=== PATIENT | female | born 1940 | race Caucasian/White ===

== ENCOUNTER 2017-06-10 19:57 | Inpatient (IN) | payer MEDICARE, MEDICAID ==
[~2017-06-10] VITALS: Ht 172.7 cm; Wt 81.6 kg
--- NOTE | 2017-06-10 20:14 | Emergency Room Report ---
History of Present Illness General Chief Complaint: Altered Level of Consciousness Source: Patient Present Illness HPI 76YOF BIBEMS from [facility] for AMS post-op from L1/S1 fusion. Patient came out of OR 5pm. Went to room at 7pm. Received 1U PRBC and ?1L NS post-op Was not given post-op narcotics Narcan given with no improvement Epi was also given although recovery manager unsure why Patient's only contribution is to groan and writhe on stretcher Surgeon is bedside. States patient without known PMHx aside from HLD. Was allegedly cleared by Cardiology and Respiratory before surgery. Normal WBC count this morning Got 4.2L NS, 540 cellsaver and 1U PRBC today Allergies: Coded Allergies: No Known Allergies (Unverified , 06/10/17) Patient History Past Medical History: none, unable to obtain Past Surgical History: other - back surgery today Pertinent Family History: unable to obtain Social History: Denies: alcohol use, drug use, smoking Last Menstrual Period: NONE Now: No Immunizations: UTD Reviewed Nursing Documentation: PMH: Agreed, PSxH: Agreed Nursing Documentation-PMH Past Medical History: No Stated History Review of Systems All Other Systems: limited - AMS Physical Exam Vital Signs Date Time Temp Pulse Resp B/P Pulse Ox O2 Delivery O2 Flow Rate FiO2 06/10/17 19:45 84 18 89/35 100 Simple Mask 15.0 Sp02 EP Interpretation: reviewed, abnormal General Appearance: normal inspection, moderate distress, other - Elderly lady , writhing on stretcher, intermittent moaning Head: normocephalic, atraumatic Eyes: bilateral eye EOMI, bilateral eye PERRL ENT: normal ENT inspection, hearing grossly normal, normal pharynx, no angioedema, normal voice Neck: normal inspection, full range of motion, supple, no meningismus, no bony tend Respiratory: normal inspection, accessory muscle use, rhonchi Cardiovascular #1: regular rate, rhythm, no edema, other - Cold extremities Gastrointestinal: normal inspection, normal bowel sounds, non tender, soft, no guarding, no hernia Genitourinary: no CVA tenderness Musculoskeletal: normal inspection, normal range of motion, Rizwan's Sign negative, other - Lower back covered with large bandages. Deep palpation does not illicit any painful response from patient. Neurologic: normal inspection, alert, responsive, speech normal, other - 4 limb movement normal Psychiatric: normal inspection, judgement/insight normal, mood/affect normal Procedures Critical Care Time Critical Care Time CC time 60 minutes 76YOF with acute respiratory failure s/p long spinal surgery VS significant for tachycardia, hypotension Labs leukocytosis, severe rhabdo, ZEKE Intubated for airway protection, AMS CC time includes discussion with surgeon, post-op RN, review of op and post-op notes, review of labs, imaging, discussion with ICU hospitalist Intubation Intubation : Consent: Emergent Intubation Method: orotracheal Tube Size (cm): 7.5 Medications: Etomidate, Rocuronium Breath Sounds after Intubation: equal Intubation Complications: no complications Post Intubation Xray: Yes Attempts: One Patient Tolerated: Well Complications: None Medical Decision Making Medicare Attestation I Koby Ward MD hereby attest that the medical record entry for date of service, 11/02/16 accurately reflects signatures/notations that I made in my capacity as MD when I treated/diagnosed the above listed Medicare beneficiary. I attest that this information is true, accurate and complete to the best of my knowledge. I understand that any falsification, omission, or concealment of material fact may subject me to administrative, civil, or criminal liability. This patient warrants hospital admission for extreme of age and has a condition that cannot be treated as outpatient. Diagnostic Impression: Primary Impression: Altered level of consciousness Additional Impressions: Sepsis Qualified Codes: A41.9 - Sepsis, unspecified organism Rhabdomyolysis Qualified Codes: T79.6XXA - Traumatic ischemia of muscle, initial encounter ZEKE (acute kidney injury) Respiratory failure Qualified Codes: J96.02 - Acute respiratory failure with hypercapnia Acidosis ER Course Altered mental status - Patient lethargic, sonorous breathing upon arrival - VS with hypotension. - Became increasingly more lethargic and unresponsive to sternal rub/ stimulation and required emergent intubation for airway protection and unknown etiology of AMS - Prior to intubation, bradycardic down to 20s then became normal HR without ED intervention Labs: Leuks 18K. CXR: No obvious PNA. UA no obvious UTI. Severe rhabdomyolysis with ZEKE. Elevated CKMB component pH 6.9. CO2 50. Po2 normal. 2L NS given in ED Empiric Abx given after blood Cx sent Endorsed to Dr Sheikh to repeat troponin and CKMB in [address] Hampton for ICU admission at 930pm EKG Diagnostic Results Rate: tachycardiac Rhythm Strip Diag. Results EP Interpretation: yes Rate: 126 Rhythm: NSR, no PVC's, no ectopy Chest X-Ray Diagnostic Results Chest X-Ray Diagnostic Results : Chest X-Ray Ordered: Yes # of Views/Limited/Complete: 1 View Indication: Other - AMS EP Interpretation: Yes Interpretation: no pneumothorax, other - Bilateral ARDS vs PNA Impression: Other - see above Interpreting ER Provider: Electronically signed by Dr Ward Other X-Ray Diagnostic Results Other X-Ray Diagnostic Results : # of Views/Limited Vs Complete: 1 View Indication: Pain EP Interpretation: Yes Interpretation: other - Interval placement of ET tube Impression: No acute disease Interpreting ER Provider: Electronically signed by Dr Ward Last Vital Signs Date Time Temp Pulse Resp B/P Pulse Ox O2 Delivery O2 Flow Rate FiO2 06/10/17 19:45 84 18 89/35 100 Simple Mask 15.0 Status: improved Disposition: ADMITTED INPATIENT Condition: Critical KOBY WARD M.D. Jun 10, 2017 20:14
[2017-06-10] MEDS ORDERED: Atropine Inj 1mg/10ml Syr ONE (20:15)
[2017-06-10 20:20] LABS: APPEARANCE,URINE CLEAR; KETONES,URINE NEGATIVE (NEGATIVE); LEUKOCYTE ESTERASE ,URINE 2+ (NEGATIVE); MEAN CORPUSCULAR HEMOGLOBIN 30.2 PG (27.0-31.0); MEAN CORPUSCULAR VOLUME 94 FL (80-99); MEAN PLATELET VOLUME 7.1 FL (6.5-10.1); NITRITE,URINE NEGATIVE (NEGATIVE); PH,URINE 5 (4.5-8.0); PLATELET COUNT 94 K/UL (150-450); PROTEIN,URINE 1+ (NEGATIVE); RED BLOOD COUNT 3.32 M/UL (4.20-5.40); RED CELL DISTRIBUTION WIDTH 14.7 % (11.6-14.8); UROBILINOGEN,URINE NORMAL MG/DL (0.0-1.0); WHITE BLOOD COUNT 18.2 K/UL (4.8-10.8)
[2017-06-10 20:27] LABS: INR 1.3 (0.9-1.1); PROTHROMBIN TIME 13.4 SEC (9.30-11.50)
[2017-06-10 20:32] LABS: BACTERIA,URINE FEW /HPF; SQUAMOUS EPITHELIAL CELL,UR FEW /LPF (NONE/OCC)
[2017-06-10 20:38] LABS: ALANINE AMINOTRANSFERASE 32 U/L (3-33); ALBUMIN/GLOBULIN RATIO 1.5 (1.0-2.7); ANION GAP 14 (5-15); ASPARTATE AMINO TRANSFERASE 95 U/L (5-40); CARBON DIOXIDE 16 mEQ/L (20-30); CHLORIDE 114 mEQ/L (98-107); CREATININE 1.1 mg/dL (0.5-0.9); HEMOLYSIS 12; SODIUM 144 mEQ/L (135-145); TOTAL PROTEIN 3.6 g/dL (6.6-8.7); TROPONIN I < 0.30 ng/mL (<=0.30)
[2017-06-10] MEDS ORDERED: NS 110 ML ONE (20:54)
[2017-06-10] MEDS ORDERED: Zosyn 3.375gm inj ONE (20:54)
[2017-06-10] MEDS ORDERED: Tubing IV Cassette IV ONE (20:54)
[2017-06-10] MEDS ORDERED: LR 1000ml 1,000 ML IV SCH (21:00)
[2017-06-10] MEDS ORDERED: Piperacillin/Tazobactam 3.375 GM in NS 110 ML IVPB ONE (21:00)
[2017-06-10] MEDS ORDERED: Etomidate 40mg/20ml Inj IV ONE (21:00)
[2017-06-10] MEDS ORDERED: Vancomycin 1 GM in D5W 275 ML IVPB ONE (21:00)
[2017-06-10] MEDS ORDERED: EPINEPHrine 1mg/10ml Syringe IV ONE (21:04)
[2017-06-10 21:07] VITALS: BP 102/78
[2017-06-10 21:12] VITALS: BP 102/76
[2017-06-10 21:23] LABS: CKMB 299.9 ng/mL (< 3.8)
[2017-06-10 21:31] LABS: ANISOCYTOSIS 1+; BAND NEUTROPHILS % (MANUAL) 8 % (0-8); HYPOCHROMASIA 1+; LYMPHOCYTES % (MANUAL) 10 % (20-45); NEUTROPHILS % (MANUAL) 78 % (45-75); PLATELET MORPHOLOGY NORMAL; TOTAL CELLS COUNTED 100
[2017-06-10 21:32] LABS: BASOPHILS % (MANUAL) 0 % (0-2); EOSINOPHILS % (MANUAL) 0 % (0-3); PLATELET ESTIMATE DECREASED
[2017-06-10] MEDS ORDERED: Tubing IV Extension IV ONE (22:04)
[2017-06-10] MEDS ORDERED: D5W 275 ML ONE (22:04)
[2017-06-10] MEDS ORDERED: Vancomycin 1gm inj IVPB ONE (22:04)
[2017-06-10] MEDS ORDERED: Sodium Bicarbonate 50ml Carp IV ONE (22:15)
[2017-06-10 22:32] VITALS: BP 143/93
[2017-06-10 22:54] LABS: ABG BASE EXCESS -19.6; ABG PCO2 50.9 mmHg (35.0-45.0)
[2017-06-10 22:55] LABS: ABG ALLEN TEST POSITIVE
[2017-06-10] MEDS ORDERED: ANCEF1 GM/50 ML IVPB (23:24)
[2017-06-10] MEDS ORDERED: ZOFRAN 4 MG4 MG/2 ML IV (23:24)
[2017-06-10] MEDS ORDERED: PROPOFOL10 MG/1 ML IV (23:24)
[2017-06-10] MEDS ORDERED: DILAUDID 11 MG/1 M1 IVP ×2 (23:24→23:31)
[2017-06-10] MEDS ORDERED: FENTANYL 0100 MCG/2 IV (23:24)
[2017-06-10] MEDS ORDERED: DEXAMETHASONE IV (23:24)
[2017-06-10] MEDS ORDERED: [UNRECOGNIZED DRUG - OTHER] IV ×2 (23:24)
[2017-06-10] MEDS ORDERED: [UNRECOGNIZED DRUG - OTHER] IV (23:24)
[2017-06-10] MEDS ORDERED: REGLAN10 MG IVP (23:24)
[2017-06-10] MEDS ORDERED: PHENERGAN25 MG/1 ML IJ (23:31)
[2017-06-10] MEDS ORDERED: NARCAN4 MG IVP (23:31)
[2017-06-10] MEDS ORDERED: ATIVAN1 MG ORAL (23:31)
[2017-06-10] MEDS ORDERED: PROTONIX20 MG ORAL (23:31)
[2017-06-10] MEDS ORDERED: BENADRYL25 MG ORAL (23:31)
[2017-06-10] MEDS ORDERED: CYCLOBENZAPRINE10 MG ORAL (23:31)
[2017-06-10] MEDS ORDERED: NEURONTIN400 MG ORAL (23:31)
[2017-06-10] MEDS ORDERED: OXYCONTIN15 MG ORAL (23:31)
[2017-06-10] MEDS ORDERED: MILK OF MA400 MG/51 ORAL (23:31)
[2017-06-10] MEDS ORDERED: CEPACOL SORETH1 EACH ORAL (23:31)
[2017-06-10] MEDS ORDERED: COLACE100 MG ORAL (23:31)
[2017-06-10] MEDS ORDERED: NORCO 10-325 T1 EACH ORAL (23:31)
[2017-06-10] MEDS ORDERED: SOMA350 MG PO (23:31)
[2017-06-10] MEDS ORDERED: CATAPRES0.1 MG ORAL (23:31)
[2017-06-10] MEDS ORDERED: PEPCID20 MG ORAL (23:31)
[2017-06-10 23:45] VITALS: BP 81/52
[2017-06-11] VITALS (66 sets, daily range): BP systolic 58–132; BP diastolic 8–92
[2017-06-11 01:46] LABS: REFLEX LACTIC ACID YES OR NO YES
[2017-06-11 01:55] LABS: TROPONIN I < 0.30 ng/mL (<=0.30)
[2017-06-11] MEDS ORDERED: LORazepam Inj 2mg/ml 1ml IV ONE (02:15)
[2017-06-11 02:19] LABS: CKMB 271.4 ng/mL (< 3.8)
--- NOTE | 2017-06-11 06:43 | Emergency Room Report ---
History of Present Illness General Chief Complaint: Altered Level of Consciousness Source: Patient Present Illness Allergies: Coded Allergies: No Known Allergies (Unverified , 06/10/17) Patient History Last Menstrual Period: NONE Now: No Nursing Documentation-[facility] Past Medical History: No Stated History Physical Exam Vital Signs Date Time Temp Pulse Resp B/P Pulse Ox O2 Delivery O2 Flow Rate FiO2 06/10/17 19:45 84 18 89/35 100 Simple Mask 15.0 06/10/17 21:12 97.6 100 Procedures Central Line Central Line : Consent: Emergent Central Line Lumen: triple Maximal Sterile Barrier Tech: yes cap, yes mask, yes sterile gown, yes sterile gloves, yes large sterile sheet, yes hand hygiene, yes chlorhexidine prep Central Line Postion: femoral (R) Anesthesia: local Complications: none Central Line Post Position: sutured, good blood return Attempts: One Patient Tolerated: Well Complications: None Medical Decision Making Diagnostic Impression: Primary Impression: Altered level of consciousness Additional Impressions: Acidosis Respiratory failure Rhabdomyolysis Sepsis ZEKE (acute kidney injury) Last Vital Signs Date Time Temp Pulse Resp B/P Pulse Ox O2 Delivery O2 Flow Rate FiO2 06/11/17 05:54 99.7 140 16 100/56 98 Mechanical Ventilator 50 06/10/17 19:45 15.0 Disposition: ADMITTED INPATIENT Condition: Critical Referrals: NOT CHOSEN JESSENIA/,REFERRING (PCP) RAMAN EDGAR M.D. Jun 11, 2017 06:43
[2017-06-11 07:28] LABS: ABG BASE EXCESS -11.1; ABG PCO2 25.4 mmHg (35.0-45.0)
[2017-06-11 07:29] LABS: ABG ALLEN TEST POSITIVE
[2017-06-11] MEDS ORDERED: Levophed 4mg/4mL Inj IV ONE (08:15)
--- NOTE | 2017-06-11 08:26 | Critical Care Progress Note ---
Assessment/Plan Assessment/Plan respiratory failure shock possible sepsis leukocytosis protein calorie malnutrition elevated CK possible rhabdo oliguria post spine surgery acute encephalopathy PLAN ICU care pressors cards eval ID eval IV antibiotics respiratory care Ventilatory support follow up ABG supportive care suction as needed no wean oxygen therapy prognosis guarded hyperventilate medications/laboratory data/nursing notes/ICU care reviewed in detail note reviewed and edited care discussed with RN and RT ICU time spent 40 minutes Critical Care - Subjective Interval Events: transferred post op very ill and critical unresponsive at present ROS Limited/Unobtainable: Yes Condition: critical EKG Rhythm: Sinus Tachycardia I&O: Intake and Output 06/10/17 06/11/17 19:00 07:00 Intake Total 4735 ml Output Total 450 ml Balance 4285 ml Intake IV Total 4735 ml Output Urine Total 450 ml Critical Care - Objective CXR: diffuse infiltrates ET-Tube: 7.5 ET Position: 22 Last 24 Hour Vital Signs Date Time Temp Pulse Resp B/P Pulse Ox O2 Delivery O2 Flow Rate FiO2 06/11/17 07:56 142 06/11/17 07:31 137 38 50 06/11/17 07:13 50 06/11/17 07:00 98.7 138 38 82/49 98 Mechanical Ventilator 50 06/11/17 06:45 99.7 140 16 100/56 98 Mechanical Ventilator 15.0 50 06/11/17 05:54 99.7 140 16 100/56 98 Mechanical Ventilator 50 06/11/17 05:27 141 35 50 06/11/17 04:20 133 16 96/92 100 Mechanical Ventilator 50 06/11/17 03:19 98.6 121 16 86/67 100 Mechanical Ventilator 50 06/11/17 02:58 123 24 50 06/11/17 01:49 94.9 105 16 115/78 100 Mechanical Ventilator 50 06/11/17 00:50 117 16 132/64 98 Mechanical Ventilator 50 06/11/17 00:50 120 22 50 06/10/17 23:45 95.8 109 16 81/52 100 Mechanical Ventilator 50 06/10/17 23:30 50 06/10/17 22:51 114 20 50 06/10/17 22:32 119 14 143/93 100 Mechanical Ventilator 100 06/10/17 21:26 138 14 Mechanical Ventilator 100 06/10/17 21:23 138 14 100 06/10/17 21:15 100 06/10/17 21:12 97.6 144 14 102/76 100 Mechanical Ventilator 100 06/10/17 21:07 120 29 102/78 83 Room Air 06/10/17 19:45 84 18 89/35 100 Simple Mask 15.0 Labs: Laboratory Tests Test 06/10/17 20:03 06/10/17 21:57 06/11/17 00:50 06/11/17 07:21 White Blood Count 18.2 K/UL (4.8-10.8) H Red Blood Count 3.32 M/UL (4.20-5.40) L Hemoglobin 10.0 G/DL (12.0-16.0) L Hematocrit 31.3 % (37.0-47.0) L Mean Corpuscular Volume 94 FL (80-99) Mean Corpuscular Hemoglobin 30.2 PG (27.0-31.0) Mean Corpuscular Hemoglobin Concent 32.0 G/DL (32.0-36.0) Red Cell Distribution Width 14.7 % (11.6-14.8) Platelet Count 94 K/UL (150-450) L Mean Platelet Volume 7.1 FL (6.5-10.1) Neutrophils (%) (Auto) % (45.0-75.0) Lymphocytes (%) (Auto) % (20.0-45.0) Monocytes (%) (Auto) % (1.0-10.0) Eosinophils (%) (Auto) % (0.0-3.0) Basophils (%) (Auto) % (0.0-2.0) Differential Total Cells Counted 100 Neutrophils % (Manual) 78 % (45-75) H Lymphocytes % (Manual) 10 % (20-45) L Monocytes % (Manual) 4 % (1-10) Eosinophils % (Manual) 0 % (0-3) Basophils % (Manual) 0 % (0-2) Band Neutrophils 8 % (0-8) Platelet Estimate Decreased L Platelet Morphology Normal Hypochromasia 1+ Anisocytosis 1+ Prothrombin Time 13.4 SEC (9.30-11.50) H Prothromb Time International Ratio 1.3 (0.9-1.1) H Activated Partial Thromboplast Time 25 SEC (23-33) Urine Color Yellow Urine Appearance Clear Urine pH 5 (4.5-8.0) Urine Specific [place] 1.015 (1.005-1.035) Urine Protein 1+ (NEGATIVE) H Urine Glucose (UA) Negative (NEGATIVE) Urine Ketones Negative (NEGATIVE) Urine Occult Blood 3+ (NEGATIVE) H Urine Nitrite Negative (NEGATIVE) Urine Bilirubin Negative (NEGATIVE) Urine Urobilinogen Normal MG/DL (0.0-1.0) Urine Leukocyte Esterase 2+ (NEGATIVE) H Urine RBC 5-10 /HPF (0 - 2) H Urine WBC 2-4 /HPF (0 - 2) Urine Squamous Epithelial Cells Few /LPF (NONE/OCC) Urine Bacteria Few /HPF (NONE) Sodium Level 144 mEQ/L (135-145) Potassium Level 4.0 mEQ/L (3.4-4.9) Chloride Level 114 mEQ/L (98-107) H Carbon Dioxide Level 16 mEQ/L (20-30) L Anion Gap 14 (5-15) Blood Urea Nitrogen 11 mg/dL (7-23) Creatinine 1.1 mg/dL (0.5-0.9) H Estimat Glomerular Filtration Rate mL/min (>60) Glucose Level 197 mg/dL (74-106) H Calcium Level 7.0 mg/dL (8.6-10.2) L Total Bilirubin 0.6 mg/dL (0.0-1.2) Aspartate Amino Transf (AST/SGOT) 95 U/L (5-40) H Alanine Aminotransferase (ALT/SGPT) 32 U/L (3-33) Alkaline Phosphatase 26 U/L (35-104) L Total Creatine Kinase 4006 U/L (26-140) H 3963 U/L (26-140) H Creatine Kinase MB 299.9 ng/mL (< 3.8) H 271.4 ng/mL (< 3.8) H Creatine Kinase MB Relative Index 7.4 6.8 Troponin I < 0.30 ng/mL (<=0.30) < 0.30 ng/mL (<=0.30) Total Protein 3.6 g/dL (6.6-8.7) L Albumin 2.2 g/dL (3.5-5.2) L Globulin 1.4 g/dL Albumin/Globulin Ratio 1.5 (1.0-2.7) Arterial Blood pH 6.962 (7.350-7.450) 7.330 (7.350-7.450) Arterial Blood Partial Pressure CO2 50.9 mmHg (35.0-45.0) H 25.4 mmHg (35.0-45.0) L Arterial Blood Partial Pressure O2 369.1 mmHg (75.0-100.0) H 148.0 mmHg (75.0-100.0) H Arterial Blood HCO3 11.2 mmol/L (22.0-26.0) L 13.3 mmol/L (22.0-26.0) L Arterial Blood Oxygen Saturation 99.2 % (92.0-98.0) H 98.2 % (92.0-98.0) H Arterial Blood Base Excess -19.6 -11.1 Quirino Test Positive Positive Lactic Acid Level 5.80 mmol/L (0.66-2.22) H Pro-B-Type Natriuretic Peptide 642 pg/mL (0-450) H Test 06/11/17 08:00 Sodium Level Pending Potassium Level Pending Chloride Level Pending Carbon Dioxide Level Pending Blood Urea Nitrogen Pending Creatinine Pending Estimat Glomerular Filtration Rate Pending Glucose Level Pending Lactic Acid Level Pending Calcium Level Pending Total Bilirubin Pending Aspartate Amino Transf (AST/SGOT) Pending Alanine Aminotransferase (ALT/SGPT) Pending Alkaline Phosphatase Pending Creatine Kinase MB Pending Total Protein Pending Albumin Pending Globulin Pending Objective: WDWN NAD ill, pale coarse breath sounds bilaterally without rhonchi or wheeze S1S2 tachy RR without MRG reduced bowel sounds, nontender no HSM no CC; trace edema nonfocal poor LOC Accucheck: 167 MARISABEL CISNEROS Jun 11, 2017 08:26
[2017-06-11 08:35] LABS: ALANINE AMINOTRANSFERASE 45 U/L (3-33); ALBUMIN/GLOBULIN RATIO 1.5 (1.0-2.7); ANION GAP 12 (5-15); ASPARTATE AMINO TRANSFERASE 123 U/L (5-40); CALCIUM 6.2 mg/dL (8.6-10.2); CARBON DIOXIDE 17 mEQ/L (20-30); CHLORIDE 117 mEQ/L (98-107); CREATININE 1.4 mg/dL (0.5-0.9); HEMOLYSIS 8; POTASSIUM 4.5 mEQ/L (3.4-4.9); SODIUM 146 mEQ/L (135-145); TOTAL PROTEIN 3.8 g/dL (6.6-8.7)
[2017-06-11 08:36] LABS: REFLEX LACTIC ACID YES OR NO YES
[2017-06-11 08:42] LABS: CKMB 241.6 ng/mL (< 3.8)
--- NOTE | 2017-06-11 09:15 | Diagnostic Imaging Report ---
Indication: Altered mental status Technique: spiral acquisitions obtained through the brain. Angled axial and coronal 5 x 5 mm slices were reconstructed. No IV contrast utilized. Radiation dose was minimized using automated exposure control Total dose length product 1383 mGycm. CTDIvol(s) 70 mGy Comparison: none FINDINGS: No acute hemorrhage or edema. No mass effect or midline shift. There is age-related enlargement of the ventricles and extra axial CSF spaces. There is periventricular deep white matter ischemic change. Normal morrissey-white differentiation. Visualized orbits are unremarkable. Visualized sinuses are unremarkable. Intact calvarium. IMPRESSION: Chronic and age-related changes. Negative for acute intracranial bleed or mass effect This agrees with the preliminary interpretation provided overnight by Dr. Herr The CT scanner at [facility] is accredited by the [employer] and the scans are performed using protocols designed to limit radiation exposure to as low as reasonably achievable to attain images of sufficient resolution adequate for diagnostic evaluation
[2017-06-11] MEDS: Pantoprazole Inj IVP SCH ×2 (09:59→20:38)
[2017-06-11] MEDS: Piperacillin/Tazobactam 3.375 GM in D5W 110 ML IVPB SCH ×3 (10:08→22:33)
--- NOTE | 2017-06-11 11:09 | Diagnostic Imaging Report ---
Indication: PAIN Technique: One view of the chest Comparison: none Findings: There is equivocal minimal probable disease and possibly pleural fluid left lung base. Lungs and pleural spaces are otherwise clear. There arm midline surgical skin francisco javier and lumbar spine fusion hardware. A surgical drain is noted projected over the left upper quadrant. Bilateral calcified breast implants are noted. Impression: Equivocal minimal left basilar pleural and parenchymal disease. No acute process otherwise. Evidence of recent surgery
[2017-06-11 11:21] LABS: BASOPHILS % (AUTO) 0.7 % (0.0-2.0); LYMPHOCYTES % (AUTO) 7.6 % (20.0-45.0); MEAN CORPUSCULAR HEMOGLOBIN 29.2 PG (27.0-31.0); MEAN CORPUSCULAR HGB CONC 31.9 G/DL (32.0-36.0); MEAN CORPUSCULAR VOLUME 92 FL (80-99); MEAN PLATELET VOLUME 6.4 FL (6.5-10.1); MONOCYTES % (AUTO) 7.8 % (1.0-10.0); NEUTROPHILS % (AUTO) 83.8 % (45.0-75.0); PLATELET COUNT 105 K/UL (150-450); RED BLOOD COUNT 3.24 M/UL (4.20-5.40)
--- NOTE | 2017-06-11 11:23 | Diagnostic Imaging Report ---
Indication: TUBE PLCMT STATUS post endotracheal intubation Technique: One view of the chest Comparison: 45 minutes earlier Findings: Interim endotracheal intubation, endotracheal tube tip in good position approximately 3 cm above the eder. There are left infrahilar opacities which are probably extraneous to the patient. Other findings are unchanged Impression: Satisfactory endotracheal intubation
[2017-06-11] MEDS ORDERED: DOPamine 400mg/250ml 250 ML IV SCH ×2 (13:00→13:30)
--- NOTE | 2017-06-11 13:30 | Diagnostic Imaging Report ---
Indication: Shortness of breath Technique: One view of the chest Comparison: 06/10/2017 Findings: Stable satisfactory position of endotracheal tube. Interim placement of nasogastric tube. Previously demonstrated. Skin francisco javier are not evident currently, either removed or excluded from the current imaging volume. Bilateral calcified breast prostheses are again demonstrated. The heart remains enlarged. Left hemidiaphragm is slightly less apparent currently. There is improved right perihilar atelectatic change Impression: Slightly less apparent left hemidiaphragm, may reflect developing pleural fluid or parenchymal disease at the left lung base. Satisfactory nasogastric intubation Decreased right perihilar atelectasis, over one day Other stable findings as described
[2017-06-11] MEDS ORDERED: Vancomycin 1gm in D5W 275ml IVPB SCH (15:00)
[2017-06-11 17:04] LABS: ALANINE AMINOTRANSFERASE 58 U/L (3-33); ALBUMIN/GLOBULIN RATIO 1.2 (1.0-2.7); ANION GAP 14 (5-15); ASPARTATE AMINO TRANSFERASE 122 U/L (5-40); CARBON DIOXIDE 13 mEQ/L (20-30); CHLORIDE 115 mEQ/L (98-107); HEMOLYSIS 2; POTASSIUM 4.1 mEQ/L (3.4-4.9); SODIUM 142 mEQ/L (135-145); TOTAL PROTEIN 3.6 g/dL (6.6-8.7)
[2017-06-11 17:24] LABS: TROPONIN I 0.51 ng/mL (<=0.30)
--- NOTE | 2017-06-11 18:39 | Neurology Progress Note ---
Interim History Interim History ROS Limited/Unobtainable: Yes Objective Physical Exam Last Vital Signs Date Time Temp Pulse Resp B/P Pulse Ox O2 Delivery O2 Flow Rate FiO2 06/11/17 18:00 134 39 93/48 99 Mechanical Ventilator 40 06/11/17 16:00 97.9 06/11/17 06:45 15.0 Laboratory Tests Test 06/10/17 20:03 06/10/17 21:57 06/11/17 00:50 06/11/17 07:21 White Blood Count 18.2 K/UL (4.8-10.8) H Red Blood Count 3.32 M/UL (4.20-5.40) L Hemoglobin 10.0 G/DL (12.0-16.0) L Hematocrit 31.3 % (37.0-47.0) L Mean Corpuscular Volume 94 FL (80-99) Mean Corpuscular Hemoglobin 30.2 PG (27.0-31.0) Mean Corpuscular Hemoglobin Concent 32.0 G/DL (32.0-36.0) Red Cell Distribution Width 14.7 % (11.6-14.8) Platelet Count 94 K/UL (150-450) L Mean Platelet Volume 7.1 FL (6.5-10.1) Neutrophils (%) (Auto) % (45.0-75.0) Lymphocytes (%) (Auto) % (20.0-45.0) Monocytes (%) (Auto) % (1.0-10.0) Eosinophils (%) (Auto) % (0.0-3.0) Basophils (%) (Auto) % (0.0-2.0) Differential Total Cells Counted 100 Neutrophils % (Manual) 78 % (45-75) H Lymphocytes % (Manual) 10 % (20-45) L Monocytes % (Manual) 4 % (1-10) Eosinophils % (Manual) 0 % (0-3) Basophils % (Manual) 0 % (0-2) Band Neutrophils 8 % (0-8) Platelet Estimate Decreased L Platelet Morphology Normal Hypochromasia 1+ Anisocytosis 1+ Prothrombin Time 13.4 SEC (9.30-11.50) H Prothromb Time International Ratio 1.3 (0.9-1.1) H Activated Partial Thromboplast Time 25 SEC (23-33) Urine Color Yellow Urine Appearance Clear Urine pH 5 (4.5-8.0) Urine Specific [place] 1.015 (1.005-1.035) Urine Protein 1+ (NEGATIVE) H Urine Glucose (UA) Negative (NEGATIVE) Urine Ketones Negative (NEGATIVE) Urine Occult Blood 3+ (NEGATIVE) H Urine Nitrite Negative (NEGATIVE) Urine Bilirubin Negative (NEGATIVE) Urine Urobilinogen Normal MG/DL (0.0-1.0) Urine Leukocyte Esterase 2+ (NEGATIVE) H Urine RBC 5-10 /HPF (0 - 2) H Urine WBC 2-4 /HPF (0 - 2) Urine Squamous Epithelial Cells Few /LPF (NONE/OCC) Urine Bacteria Few /HPF (NONE) Sodium Level 144 mEQ/L (135-145) Potassium Level 4.0 mEQ/L (3.4-4.9) Chloride Level 114 mEQ/L (98-107) H Carbon Dioxide Level 16 mEQ/L (20-30) L Anion Gap 14 (5-15) Blood Urea Nitrogen 11 mg/dL (7-23) Creatinine 1.1 mg/dL (0.5-0.9) H Estimat Glomerular Filtration Rate mL/min (>60) Glucose Level 197 mg/dL (74-106) H Calcium Level 7.0 mg/dL (8.6-10.2) L Total Bilirubin 0.6 mg/dL (0.0-1.2) Aspartate Amino Transf (AST/SGOT) 95 U/L (5-40) H Alanine Aminotransferase (ALT/SGPT) 32 U/L (3-33) Alkaline Phosphatase 26 U/L (35-104) L Total Creatine Kinase 4006 U/L (26-140) H 3963 U/L (26-140) H Creatine Kinase MB 299.9 ng/mL (< 3.8) H 271.4 ng/mL (< 3.8) H Creatine Kinase MB Relative Index 7.4 6.8 Troponin I < 0.30 ng/mL (<=0.30) < 0.30 ng/mL (<=0.30) Total Protein 3.6 g/dL (6.6-8.7) L Albumin 2.2 g/dL (3.5-5.2) L Globulin 1.4 g/dL Albumin/Globulin Ratio 1.5 (1.0-2.7) Arterial Blood pH 6.962 (7.350-7.450) 7.330 (7.350-7.450) Arterial Blood Partial Pressure CO2 50.9 mmHg (35.0-45.0) H 25.4 mmHg (35.0-45.0) L Arterial Blood Partial Pressure O2 369.1 mmHg (75.0-100.0) H 148.0 mmHg (75.0-100.0) H Arterial Blood HCO3 11.2 mmol/L (22.0-26.0) L 13.3 mmol/L (22.0-26.0) L Arterial Blood Oxygen Saturation 99.2 % (92.0-98.0) H 98.2 % (92.0-98.0) H Arterial Blood Base Excess -19.6 -11.1 Quirino Test Positive Positive Lactic Acid Level 5.80 mmol/L (0.66-2.22) H Pro-B-Type Natriuretic Peptide 642 pg/mL (0-450) H Test 06/11/17 08:00 06/11/17 16:00 White Blood Count 16.0 K/UL (4.8-10.8) H Red Blood Count 3.24 M/UL (4.20-5.40) L Hemoglobin 9.4 G/DL (12.0-16.0) L Hematocrit 29.6 % (37.0-47.0) L Mean Corpuscular Volume 92 FL (80-99) Mean Corpuscular Hemoglobin 29.2 PG (27.0-31.0) Mean Corpuscular Hemoglobin Concent 31.9 G/DL (32.0-36.0) L Red Cell Distribution Width 15.0 % (11.6-14.8) H Platelet Count 105 K/UL (150-450) L Mean Platelet Volume 6.4 FL (6.5-10.1) L Neutrophils (%) (Auto) 83.8 % (45.0-75.0) H Lymphocytes (%) (Auto) 7.6 % (20.0-45.0) L Monocytes (%) (Auto) 7.8 % (1.0-10.0) Eosinophils (%) (Auto) 0.0 % (0.0-3.0) Basophils (%) (Auto) 0.7 % (0.0-2.0) Sodium Level 146 mEQ/L (135-145) H 142 mEQ/L (135-145) Potassium Level 4.5 mEQ/L (3.4-4.9) 4.1 mEQ/L (3.4-4.9) Chloride Level 117 mEQ/L (98-107) H 115 mEQ/L (98-107) H Carbon Dioxide Level 17 mEQ/L (20-30) L 13 mEQ/L (20-30) L Anion Gap 12 (5-15) 14 (5-15) Blood Urea Nitrogen 14 mg/dL (7-23) 19 mg/dL (7-23) Creatinine 1.4 mg/dL (0.5-0.9) H 2.0 mg/dL (0.5-0.9) H Estimat Glomerular Filtration Rate mL/min (>60) mL/min (>60) Glucose Level 167 mg/dL (74-106) H 247 mg/dL (74-106) H Lactic Acid Level 5.30 mmol/L (0.66-2.22) H Calcium Level 6.2 mg/dL (8.6-10.2) L 6.0 mg/dL (8.6-10.2) L Total Bilirubin 0.3 mg/dL (0.0-1.2) 0.2 mg/dL (0.0-1.2) Aspartate Amino Transf (AST/SGOT) 123 U/L (5-40) H 122 U/L (5-40) H Alanine Aminotransferase (ALT/SGPT) 45 U/L (3-33) H 58 U/L (3-33) H Alkaline Phosphatase 28 U/L (35-104) L 28 U/L (35-104) L Creatine Kinase MB 241.6 ng/mL (< 3.8) H Total Protein 3.8 g/dL (6.6-8.7) L 3.6 g/dL (6.6-8.7) L Albumin 2.3 g/dL (3.5-5.2) L 2.0 g/dL (3.5-5.2) L Globulin 1.5 g/dL 1.6 g/dL Albumin/Globulin Ratio 1.5 (1.0-2.7) 1.2 (1.0-2.7) Total Creatine Kinase 2945 U/L (26-140) H Troponin I 0.51 ng/mL (<=0.30) *H Impression/Recommendations Problems: (1) post op persistant coma,multifactorial. (2) Anuresis (3) septic shock (4) respiratory failure, on ventilator (5) ZEKE (acute kidney injury) (6) Rhabdomyolysis Status: unchanged Recommendations #[id number] LULU BAEZ Jun 11, 2017 18:39
[2017-06-11 19:31] LABS: REFLEX LACTIC ACID YES OR NO YES
--- NOTE | 2017-06-11 20:30 | Consultation ---
DATE OF CONSULTATION: 06/11/2017 INFECTIOUS DISEASE CONSULT CONSULTING PHYSICIAN: Ezekiel Veliz M.D. PRIMARY ATTENDING PHYSICIAN: Yifan Hampton M.D. REASON FOR CONSULTATION: Sepsis and septic shock. HISTORY OF PRESENT ILLNESS: The patient is a 76-year-old black female, admitted yesterday with altered mental status. She had an operation at [facility] that was L5-S1 fusion. According to the paper, the patient had a major surgery. After surgery, the patient did not wake up, became hypotensive and developed respiratory failure with hypercapnia and intubated. Currently, she is on maximal dose of Levophed in the ICU, had acute renal failure, and rhabdomyolysis. PAST MEDICAL HISTORY: Has history of back pain and breast augmentation. No other history obtainable by the patient. MEDICATIONS: Vancomycin, norepinephrine, Protonix, Zosyn, sodium chloride, and Tylenol. ALLERGIES: No known drug allergies. PHYSICAL EXAMINATION: GENERAL: In ICU. Nonresponsive. VITAL SIGNS: Temperature 98.7 degrees, the patient at the beginning of the admission was hypothermic with the temperature of 94.9 degrees, pulse is 135, respirations 34, and blood pressure 99/80. HEAD AND NECK: Orally intubated. Exira conjunctivae. HEART: Tachycardic. LUNGS: Tachypneic and clear on mechanical ventilator. ABDOMEN: Soft and nontender. EXTREMITIES: No edema. LABORATORY DATA: WBC 16,000, hemoglobin 9.4, hematocrit 29.6, and platelets is 105,000. Sodium 144, potassium 4, and chloride 114. Carbon dioxide 16. BUN 11 and creatinine 1.1. Lactic acid is 5.3. CK level is 4006. Albumin is 2.2. IMPRESSION: 1. Sepsis with septic shock versus systemic inflammatory response syndrome 2. The patient has respiratory failure. 3. Acute renal failure and rhabdomyolysis. 4. Status post L5-S1 fusion. 5. Had a lab that showed pyuria outside of the hospital, but our cultures are still pending. RECOMMENDATIONS: 1. We will continue empirically with vancomycin and Zosyn. 2. We will follow up the cultures. At the end of my exam, I thank Dr. Hampton for involving me in the care of this patient. Ezekiel Veliz M.D. DR: RICHA JOB#: [id number] CC: JENNIFER
[2017-06-11] MEDS: Acetaminophen 650 MG SUPP RECTAL PRN ×2 (21:24→21:27)
[2017-06-11] MEDS ORDERED: Acetaminophen 650 MG SUPP RECTAL PRN (21:45)
--- NOTE | 2017-06-11 22:30 | Consultation ---
DATE OF CONSULTATION: NEPHROLOGY CONSULTATION CONSULTING PHYSICIAN: Graham Patiño M.D. ATTENDING PHYSICIAN: Yifan Hampton M.D. REASON FOR CONSULTATION: Anuria. HISTORY OF PRESENT ILLNESS: This is a 76-year-old female, transferred from [facility] due to respiratory failure and decompensation. The full picture is not clear since I do not have full account. According Dr. Hampton, the patient received mismatched transfusion and developed respiratory failure and acute renal failure. The patient is on the ventilator and unable to give any further information. PAST MEDICAL HISTORY: 1. Recent back surgery done at [facility] by . 2. Recent development of a shock. MEDICATIONS: Current medications pressors, intravenous fluids, intravenous vancomycin, Protonix, intravenous Zosyn, and Tylenol p.r.n. ALLERGIES: No known drug allergies. FAMILY HISTORY: Unable to obtain. SOCIAL HISTORY: Unable to obtain. REVIEW OF SYSTEMS: Unable to obtain. PHYSICAL EXAMINATION: GENERAL: This is an elderly female, who is on a ventilator. VITAL SIGNS: Blood pressure is 105/77, pulse 140, sinus tachycardia, and respirations 34. HEENT: The patient is on a ventilator and intubated transorally. The head is normocephalic and atraumatic. Pupils are equal, round, and reactive to light. NECK: Supple. Trachea midline. There was no lymphadenopathy or thyromegaly. LUNGS: Clear to auscultation and percussion. HEART: Tachycardia. S1 and S2. No rubs, murmurs, or gallops. ABDOMEN: Soft. Bowel sounds are active. EXTREMITIES: No clubbing, cyanosis, or edema. NEUROLOGIC: She is obtunded. There were no gross focal findings. LABORATORY AND ANCILLARY DATA: CBC, white count 16,000 and hematocrit 29.6. Serum chemistry, sodium 146, potassium 4.5, BUN 14, and creatinine 1.4. Lactic acid 5.3. Calcium 6.2. Total bilirubin 0.3. ALT 45. CPK 3963. Urinalysis, significant for 3+ occult blood. ASSESSMENT: 1. Acute renal failure due to hemoglobinuria, most likely due to a mismatched blood. 2. Acute rhabdomyolysis. PLAN: 1. Continue current therapy. 2. We will watch for development of a metabolic acidosis or need for hemodialysis. Thank you Dr. Hampton for letting me participate in the care of this patient. Graham Patiño M.D. DR: BINTA JOB#: [id number] CC:
[2017-06-12] VITALS (32 sets, daily range): BP systolic 106–146; BP diastolic 37–68
--- NOTE | 2017-06-12 00:30 | History and Physical Report ---
DATE OF ADMISSION: 06/10/2017 CHIEF COMPLAINT: Respiratory failure, sepsis, and shock. HISTORY OF PRESENT ILLNESS: The patient is a 76-year-old female, who was initially referred to an outside hospital for spine surgery. The patient had a L1-S1 fusion. Postoperatively, she became confused and altered. She required a blood transfusion. She received normal saline. She apparently developed worsening respiratory distress and confusion, was transferred to the emergency room where she required intubation. She was hypotensive, later received IV fluid boluses, but later required pressors for blood pressure support. Laboratory test in the emergency room showed a white count of 18,000. Chest x-ray was clear. UA was negative. Blood gases showed severe metabolic acidosis. Lactic acid level of 5 with a CK level of 4000. The patient is now admitted to the intensive care unit for further evaluation and care. PAST MEDICAL HISTORY: Includes history of hyperlipidemia and chronic back pain. PAST SURGICAL HISTORY: Includes breast surgery. CURRENT MEDICATIONS: Reconciled and reviewed. ALLERGIES: None. FAMILY HISTORY: Significant for her father who had coronary artery disease and hypertension. REVIEW OF SYSTEMS: The patient is unobtainable. PHYSICAL EXAMINATION: VITAL SIGNS: Temperature 98 degrees, blood pressure 106/66, pulse of 137, and respirations 35. GENERAL: The patient is a frail female, currently orally intubated. NECK: Supple. HEART: Regular rate and rhythm. LUNGS: Clear anteriorly. ABDOMEN: Soft, nontender, and nondistended. EXTREMITIES: Without clubbing, cyanosis, or edema. LABORATORY AND DIAGNOSTIC DATA: Showed a white count of 18,000, hemoglobin 10, hematocrit 31, and platelets of 94,000. INR was 1.3. Sodium 140, potassium 4.5, chloride 117, bicarbonate 17, BUN 14, and creatinine 1.4. CK level was 4000. Urine was clear. Chest x-ray also was clear. ASSESSMENT: This is an unfortunate female with a history of chronic lower back pain status post lumbar fusion, complicated by respiratory failure and septic shock, unclear etiology at this point. 1. Respiratory failure. 2. Shock. 3. Possible sepsis. 4. Possible aspiration pneumonia. 5. Rhabdomyolysis. 6. Severe metabolic acidosis. PLAN: 1. Aggressive fluid resuscitation. 2. Vent support. 3. Respiratory treatments. 4. Broad-spectrum antibiotic therapy. 5. Monitor CK level. 6. Check a troponin. 7. The patient's status is currently critical and guarded. Shin Gallegos M.D. DR: SAMM JOB#: [id number] CC:
--- NOTE | 2017-06-12 03:30 | Progress Note ---
DATE: 06/11/2017 CARDIOLOGY PROGRESS NOTE SUBJECTIVE: The patient remains in the intensive care unit. Condition remains critical. Prognosis remains guarded. She is on ventilator support. She has been on pressors. She has developed atrial fibrillation with rapid ventricular response. OBJECTIVE: VITAL SIGNS: Blood pressure 94/60, pulse 125 and respiratory 18 and afebrile. HEENT: Temporal wasting. Oropharynx clear. NECK: No jugular venous distention. LUNGS: With bilateral rales. CARDIAC: Irregularly irregular rhythm. Rapid rate. Normal S1 and S2. No murmur. ABDOMEN: Soft. EXTREMITIES: Trace edema. LABORATORY AND DIAGNOSTIC DATA: Chest x-ray reveals perihilar atelectasis and parenchymal disease at the left base. Venous duplex scan reveals no DVT. ABG, pH 7.33, pCO2 25, and pO2 148. White count 16 and hemoglobin 9.4. Lactic acid 5.8. CK is 3900. Troponin negative. Natriuretic peptide 642. IMPRESSION: 1. Status post spine surgery. 2. Postoperative rest with probable anoxic encephalopathy. 3. Rhabdomyolysis. 4. Lactic acidosis. 5. Sepsis with shock. 6. Paroxysmal atrial fibrillation with rapid ventricular response. 7. Acute myocardial ischemia. 8. Anemia. 9. Condition remains critical with guarded prognosis. PLAN: 1. Volume resuscitation. 2. Taper off pressors. 3. Broad-spectrum antibiotics. 4. DVT prophylaxis. Praful Stewart M.D. DR: MECHE JOB#: [id number] CC: JENNIFER
[2017-06-12 05:32] LABS: MEAN CORPUSCULAR HGB CONC 32.8 G/DL (32.0-36.0); MEAN CORPUSCULAR VOLUME 92 FL (80-99); MEAN PLATELET VOLUME 6.2 FL (6.5-10.1); PLATELET COUNT 103 K/UL (150-450); RED BLOOD COUNT 2.65 M/UL (4.20-5.40); RED CELL DISTRIBUTION WIDTH 15.3 % (11.6-14.8); WHITE BLOOD COUNT 20.1 K/UL (4.8-10.8)
[2017-06-12] MEDS: Piperacillin/Tazobactam 3.375 GM in D5W 110 ML IVPB SCH ×3 (05:36→21:32)
[2017-06-12 05:42] LABS: ALANINE AMINOTRANSFERASE 53 U/L (3-33); ANION GAP 11 (5-15); ASPARTATE AMINO TRANSFERASE 119 U/L (5-40); CALCIUM 6.1 mg/dL (8.6-10.2); CARBON DIOXIDE 15 mEQ/L (20-30); CHLORIDE 115 mEQ/L (98-107); CREATININE 2.2 mg/dL (0.5-0.9); HEMOLYSIS 13; SODIUM 141 mEQ/L (135-145); TOTAL PROTEIN 3.7 g/dL (6.6-8.7)
[2017-06-12 05:54] LABS: REFLEX LACTIC ACID YES OR NO YES
[2017-06-12 06:13] LABS: ABG ALLEN TEST POSITIVE; ABG BASE EXCESS -9.7; ABG PCO2 29.5 mmHg (35.0-45.0)
[2017-06-12 06:18] LABS: PHOSPHORUS 2.4 MG/DL (2.5-4.9)
[2017-06-12 06:50] LABS: TROPONIN I 0.31 ng/mL (<=0.30)
[2017-06-12 06:55] LABS: BAND NEUTROPHILS % (MANUAL) 19 % (0-8); LYMPHOCYTES % (MANUAL) 10 % (20-45); NEUTROPHILS % (MANUAL) 70 % (45-75); TOTAL CELLS COUNTED 100
[2017-06-12 06:56] LABS: ANISOCYTOSIS 1+; BASOPHILS % (MANUAL) 0 % (0-2); EOSINOPHILS % (MANUAL) 0 % (0-3); PLATELET ESTIMATE DECREASED; POIKILOCYTOSIS 1+
[2017-06-12] MEDS: Pantoprazole Inj IVP SCH ×2 (08:12→21:26)
[2017-06-12 08:32] LABS: PLATELET MORPHOLOGY NORMAL
--- NOTE | 2017-06-12 09:20 | Diagnostic Imaging Report ---
Indication: Elevated renal function test Technique: Renal ultrasound Findings: The right kidney measures 9.3 cm in length. The left kidney measures 10.7 cm in length. There is no hydronephrosis. Small right renal cysts are seen measuring up to 12 mm. No sonographically evident renal calculi are identified. Trace ascites is noted. The visualized portions of the inferior vena cava are unremarkable. A Mendoza catheter is present. Impression: Technically limited examination due to overlying bowel gas and labored breathing. Portions of the bilateral kidneys not well seen and further evaluation recommended as indicated. No hydronephrosis. Mendoza catheter although intraluminal positioning within the bladder is difficult to assess. Correlate clinically and reposition if indicated. Right renal cysts. Mild ascites. Clinical correlation recommended.
[2017-06-12] MEDS: Acetaminophen 650 MG SUPP RECTAL PRN (09:38)
--- NOTE | 2017-06-12 09:52 | Nephrology Progress Note ---
Assessment/Plan Plan 1) ZEKE--stable Cr 2) metabolic acidosis 3) sepsis 4) anemia 5) thromocytopenia 6) hypocalcemia 7) rhabdomyolysis 8) s/p back Sx 9) NSTEMI Plan sodium bicarb drip replete Ca Monitor i/o, electrolytes continue Abx Avoid Nephrotoxic medications in renal dosage Doesn't need urgent HD Discussed with RN Subjective Subjective got intubated, off pressor Objective Objective Last 24 Hour Vital Signs Date Time Temp Pulse Resp B/P Pulse Ox O2 Delivery O2 Flow Rate FiO2 06/12/17 09:00 104 28 131/50 99 Mechanical Ventilator 60 06/12/17 08:47 102 36 40 06/12/17 08:00 102 33 127/62 99 Mechanical Ventilator 60 06/12/17 08:00 100 06/12/17 07:05 95 33 40 06/12/17 07:00 109 26 106/63 99 Mechanical Ventilator 60 06/12/17 05:30 109 31 145/54 99 Mechanical Ventilator 60 06/12/17 05:03 104 28 40 06/12/17 05:00 107 32 132/67 98 Mechanical Ventilator 60 06/12/17 05:00 132/50 06/12/17 04:30 110 31 132/50 98 Mechanical Ventilator 60 06/12/17 04:15 50 06/12/17 04:00 60 06/12/17 04:00 116/70 06/12/17 04:00 107 06/12/17 04:00 98.9 107 31 132/50 98 Mechanical Ventilator 60 06/12/17 03:30 115 33 121/58 98 Mechanical Ventilator 60 06/12/17 03:15 112 33 115/61 99 Mechanical Ventilator 60 06/12/17 03:03 115 37 50 06/12/17 03:00 114 33 126/58 98 Mechanical Ventilator 60 06/12/17 03:00 126/58 06/12/17 02:45 115 35 139/55 99 Mechanical Ventilator 60 06/12/17 02:30 116 35 130/64 98 Mechanical Ventilator 60 06/12/17 02:15 117 34 129/52 98 Mechanical Ventilator 60 06/12/17 02:00 115 32 133/54 98 Mechanical Ventilator 60 06/12/17 02:00 133/54 06/12/17 01:30 114 29 123/52 98 Mechanical Ventilator 60 06/12/17 01:00 115 34 125/55 98 Mechanical Ventilator 60 06/12/17 01:00 125/55 06/12/17 00:54 115 34 60 06/12/17 00:30 114 33 119/58 91 Mechanical Ventilator 60 06/12/17 00:00 60 06/12/17 00:00 118 06/12/17 00:00 116/57 06/12/17 00:00 100.0 118 35 116/57 100 Mechanical Ventilator 40 06/11/17 23:30 119 36 115/48 99 Mechanical Ventilator 40 06/11/17 23:05 125 35 80 06/11/17 23:00 123/62 06/11/17 23:00 123/62 06/11/17 23:00 122 35 128/46 100 Mechanical Ventilator 40 06/11/17 22:30 127 35 111/60 100 Mechanical Ventilator 40 06/11/17 22:00 131/65 06/11/17 22:00 131/65 06/11/17 22:00 124 32 131/65 100 Mechanical Ventilator 40 06/11/17 21:54 100.0 06/11/17 21:30 126 35 122/42 100 Mechanical Ventilator 40 06/11/17 21:15 123 35 122/53 100 Mechanical Ventilator 40 06/11/17 21:14 125 06/11/17 21:10 94/61 06/11/17 21:00 112/41 06/11/17 21:00 112/41 06/11/17 21:00 119 35 112/41 100 Mechanical Ventilator 40 06/11/17 20:51 134 39 100 06/11/17 20:45 124 36 87/45 100 Mechanical Ventilator 40 06/11/17 20:30 128 35 86/51 100 Mechanical Ventilator 40 06/11/17 20:15 120 33 104/56 100 Mechanical Ventilator 40 06/11/17 20:00 100.7 127 32 104/61 100 Mechanical Ventilator 40 06/11/17 20:00 40 06/11/17 20:00 104/61 06/11/17 20:00 104/61 06/11/17 19:45 122 32 106/63 100 Mechanical Ventilator 40 06/11/17 19:30 132 32 95/49 100 Mechanical Ventilator 40 06/11/17 19:15 129 29 90/60 99 Mechanical Ventilator 40 06/11/17 19:00 101/54 06/11/17 19:00 101/54 06/11/17 19:00 131 34 95/61 99 Mechanical Ventilator 40 06/11/17 18:45 131 39 95/61 99 Mechanical Ventilator 40 06/11/17 18:36 132 39 40 06/11/17 18:30 132 38 97/45 99 Mechanical Ventilator 40 06/11/17 18:15 133 38 98/61 99 Mechanical Ventilator 40 06/11/17 18:00 134 39 93/48 99 Mechanical Ventilator 40 06/11/17 18:00 93/48 06/11/17 18:00 93/48 06/11/17 17:45 133 38 112/76 98 Mechanical Ventilator 40 06/11/17 17:30 133 38 104/74 98 Mechanical Ventilator 40 06/11/17 17:15 132 38 90/70 99 Mechanical Ventilator 40 06/11/17 17:03 132 39 50 06/11/17 17:00 114/61 06/11/17 17:00 135 38 89/75 99 Mechanical Ventilator 40 06/11/17 16:45 133 37 79/51 98 Mechanical Ventilator 40 06/11/17 16:30 133 37 96/62 98 Mechanical Ventilator 40 06/11/17 16:15 133 38 106/57 98 Mechanical Ventilator 40 06/11/17 16:00 40 06/11/17 16:00 97.9 132 35 106/66 99 Mechanical Ventilator 40 06/11/17 16:00 122/63 06/11/17 16:00 122/63 06/11/17 16:00 133 06/11/17 15:45 135 38 117/80 99 Mechanical Ventilator 40 06/11/17 15:30 135 35 130/43 99 Mechanical Ventilator 40 06/11/17 15:30 130/43 06/11/17 15:15 135 35 122/72 99 Mechanical Ventilator 40 06/11/17 15:00 137 35 106/66 99 Mechanical Ventilator 40 06/11/17 15:00 112/87 06/11/17 15:00 112/87 06/11/17 14:54 140 38 50 06/11/17 14:45 140 37 106/66 93 Mechanical Ventilator 40 06/11/17 14:30 139 34 101/61 93 Mechanical Ventilator 40 06/11/17 14:30 101/61 06/11/17 14:15 139 34 109/58 94 Mechanical Ventilator 40 06/11/17 14:00 138 34 105/77 94 Mechanical Ventilator 40 06/11/17 14:00 108/61 06/11/17 13:45 137 38 105/77 94 Mechanical Ventilator 40 06/11/17 13:30 137 38 102/57 94 Mechanical Ventilator 40 06/11/17 13:30 102/57 06/11/17 13:20 136 37 50 06/11/17 13:15 136 38 89/54 94 Mechanical Ventilator 40 06/11/17 13:10 106/75 06/11/17 13:00 136 37 106/75 94 Mechanical Ventilator 40 06/11/17 13:00 113/71 06/11/17 12:45 133 37 106/46 99 Mechanical Ventilator 40 06/11/17 12:30 134 36 109/46 99 Mechanical Ventilator 40 06/11/17 12:15 98.1 135 37 106/76 94 Mechanical Ventilator 40 06/11/17 12:11 107/75 06/11/17 12:00 40 06/11/17 12:00 107/75 06/11/17 12:00 98.1 134 33 107/75 94 Mechanical Ventilator 40 06/11/17 12:00 136 06/11/17 11:45 136 37 107/75 94 Mechanical Ventilator 40 06/11/17 11:30 136 37 102/75 94 Mechanical Ventilator 40 06/11/17 11:15 137 34 112/82 94 Mechanical Ventilator 40 06/11/17 11:00 135 34 99/80 94 Mechanical Ventilator 40 06/11/17 11:00 105/70 06/11/17 10:56 135 36 50 06/11/17 10:45 136 38 90/56 94 Mechanical Ventilator 40 06/11/17 10:34 85/41 06/11/17 10:30 136 37 99/80 94 Mechanical Ventilator 40 06/11/17 10:15 136 33 95/56 94 Mechanical Ventilator 40 06/11/17 10:00 90/56 06/11/17 10:00 136 36 90/56 94 Mechanical Ventilator 40 Intake and Output 06/11/17 06/12/17 19:00 07:00 Intake Total 2723.370 ml 2270.352 ml Output Total 350 ml 335 ml Balance 2373.370 ml 1935.352 ml Intake Oral 0 ml IV Total 2723.370 ml 2270.352 ml Output Urine Total 40 ml 215 ml Drainage Total 310 ml 120 ml Laboratory Tests 06/11/17 16:00: Sodium Level 142, Potassium Level 4.1, Chloride Level 115H, Carbon Dioxide Level 13L, Anion Gap 14, Blood Urea Nitrogen 19, Creatinine 2.0H, Estimat Glomerular Filtration Rate , Glucose Level 247H, Calcium Level 6.0L, Total Bilirubin 0.2, Aspartate Amino Transf (AST/SGOT) 122H, Alanine Aminotransferase (ALT/SGPT) 58H, Alkaline Phosphatase 28L, Total Creatine Kinase 2945H, Troponin I 0.51*H, Total Protein 3.6L, Albumin 2.0L, Globulin 1.6, Albumin/Globulin Ratio 1.2 06/11/17 18:45: Lactic Acid Level 3.70H 06/12/17 04:00: Sodium Level 141, Potassium Level 4.0, Chloride Level 115H, Carbon Dioxide Level 15L, Anion Gap 11, Blood Urea Nitrogen 24H, Creatinine 2.2H, Estimat Glomerular Filtration Rate , Glucose Level 148#H, Calcium Level 6.1L, Total Bilirubin 0.3, Aspartate Amino Transf (AST/SGOT) 119H, Alanine Aminotransferase (ALT/SGPT) 53H, Alkaline Phosphatase 43, Total Creatine Kinase 1916H, Troponin I 0.31*H, Total Protein 3.7L, Albumin 1.9L, Globulin 1.8, Albumin/Globulin Ratio 1.0, Lactic Acid Level 2.00, White Blood Count 20.1H, Red Blood Count 2.65L, Hemoglobin 8.0L, Hematocrit 24.3L, Mean Corpuscular Volume 92, Mean Corpuscular Hemoglobin 30.0, Mean Corpuscular Hemoglobin Concent 32.8, Red Cell Distribution Width 15.3H, Platelet Count 103L, Mean Platelet Volume 6.2L, Neutrophils (%) (Auto) , Lymphocytes (%) (Auto) , Monocytes (%) (Auto) , Eosinophils (%) (Auto) , Basophils (%) (Auto) , Differential Total Cells Counted 100, Neutrophils % (Manual) 70, Lymphocytes % (Manual) 10L, Monocytes % (Manual) 1, Eosinophils % (Manual) 0, Basophils % (Manual) 0, Band Neutrophils 19H, Platelet Estimate DecreasedL, Platelet Morphology Normal, Poikilocytosis 1+ , Anisocytosis 1+, Phosphorus Level 2.4L, Lactate Dehydrogenase 513H 06/12/17 06:00: Arterial Blood pH 7.330L, Arterial Blood Partial Pressure CO2 29.5L, Arterial Blood Partial Pressure O2 71.6L, Arterial Blood HCO3 15.2L, Arterial Blood Oxygen Saturation 92.7, Arterial Blood Base Excess -9.7, Quirino Test Positive Height (Feet): 5 Height (Inches): 8.00 Weight (Pounds): 168 Objective intubated on Vent CTA b/l,no rales, no rhonchi S1,S2,RRR,no M/R/g soft, BS+, drainage from back with blood no edema, Mendoza's cath + LEAJULI Jun 12, 2017 09:51
--- NOTE | 2017-06-12 09:54 | Critical Care Progress Note ---
Assessment/Plan Assessment/Plan respiratory failure shock possible sepsis leukocytosis protein calorie malnutrition elevated CK possible rhabdo post spine surgery acute encephalopathy ARF with oliguria hypotension improved ?[facility] PLAN ICU care pressors now off cards eval ID eval IV antibiotics pending cultures respiratory care Ventilatory support follow up ABG noted; adequate acid base exchange supportive care suction as needed no wean for now renal US Noted oxygen therapy prognosis guarded hyperventilate as needed monitor platelets heme eval for possible transfusion reaction medications/laboratory data/nursing notes/ICU care reviewed in detail note reviewed and edited care discussed with RN and RT ICU time spent 45 minutes Critical Care - Subjective Interval Events: care d/w multiple times events noted now off pressors ROS Limited/Unobtainable: Yes EKG Rhythm: Sinus Tachycardia I&O: Intake and Output 06/11/17 06/12/17 19:00 07:00 Intake Total 2723.370 ml 2270.352 ml Output Total 350 ml 335 ml Balance 2373.370 ml 1935.352 ml Intake Oral 0 ml IV Total 2723.370 ml 2270.352 ml Output Urine Total 40 ml 215 ml Drainage Total 310 ml 120 ml Critical Care - Objective ET-Tube: 7.5 ET Position: 22 Last 24 Hour Vital Signs Date Time Temp Pulse Resp B/P Pulse Ox O2 Delivery O2 Flow Rate FiO2 06/12/17 09:00 104 28 131/50 99 Mechanical Ventilator 60 06/12/17 08:47 102 36 40 06/12/17 08:00 102 33 127/62 99 Mechanical Ventilator 60 06/12/17 08:00 100 06/12/17 07:05 95 33 40 06/12/17 07:00 109 26 106/63 99 Mechanical Ventilator 60 06/12/17 05:30 109 31 145/54 99 Mechanical Ventilator 60 06/12/17 05:03 104 28 40 06/12/17 05:00 107 32 132/67 98 Mechanical Ventilator 60 06/12/17 05:00 132/50 06/12/17 04:30 110 31 132/50 98 Mechanical Ventilator 60 06/12/17 04:15 50 06/12/17 04:00 60 06/12/17 04:00 116/70 06/12/17 04:00 107 06/12/17 04:00 98.9 107 31 132/50 98 Mechanical Ventilator 60 06/12/17 03:30 115 33 121/58 98 Mechanical Ventilator 60 06/12/17 03:15 112 33 115/61 99 Mechanical Ventilator 60 06/12/17 03:03 115 37 50 06/12/17 03:00 114 33 126/58 98 Mechanical Ventilator 60 06/12/17 03:00 126/58 06/12/17 02:45 115 35 139/55 99 Mechanical Ventilator 60 06/12/17 02:30 116 35 130/64 98 Mechanical Ventilator 60 06/12/17 02:15 117 34 129/52 98 Mechanical Ventilator 60 06/12/17 02:00 115 32 133/54 98 Mechanical Ventilator 60 06/12/17 02:00 133/54 06/12/17 01:30 114 29 123/52 98 Mechanical Ventilator 60 06/12/17 01:00 115 34 125/55 98 Mechanical Ventilator 60 06/12/17 01:00 125/55 06/12/17 00:54 115 34 60 06/12/17 00:30 114 33 119/58 91 Mechanical Ventilator 60 06/12/17 00:00 60 06/12/17 00:00 118 06/12/17 00:00 116/57 06/12/17 00:00 100.0 118 35 116/57 100 Mechanical Ventilator 40 06/11/17 23:30 119 36 115/48 99 Mechanical Ventilator 40 06/11/17 23:05 125 35 80 06/11/17 23:00 123/62 06/11/17 23:00 123/62 06/11/17 23:00 122 35 128/46 100 Mechanical Ventilator 40 06/11/17 22:30 127 35 111/60 100 Mechanical Ventilator 40 06/11/17 22:00 131/65 06/11/17 22:00 131/65 06/11/17 22:00 124 32 131/65 100 Mechanical Ventilator 40 06/11/17 21:54 100.0 06/11/17 21:30 126 35 122/42 100 Mechanical Ventilator 40 06/11/17 21:15 123 35 122/53 100 Mechanical Ventilator 40 06/11/17 21:14 125 06/11/17 21:10 94/61 06/11/17 21:00 112/41 06/11/17 21:00 112/41 06/11/17 21:00 119 35 112/41 100 Mechanical Ventilator 40 06/11/17 20:51 134 39 100 06/11/17 20:45 124 36 87/45 100 Mechanical Ventilator 40 06/11/17 20:30 128 35 86/51 100 Mechanical Ventilator 40 06/11/17 20:15 120 33 104/56 100 Mechanical Ventilator 40 06/11/17 20:00 100.7 127 32 104/61 100 Mechanical Ventilator 40 06/11/17 20:00 40 06/11/17 20:00 104/61 06/11/17 20:00 104/61 06/11/17 19:45 122 32 106/63 100 Mechanical Ventilator 40 06/11/17 19:30 132 32 95/49 100 Mechanical Ventilator 40 06/11/17 19:15 129 29 90/60 99 Mechanical Ventilator 40 06/11/17 19:00 101/54 06/11/17 19:00 101/54 06/11/17 19:00 131 34 95/61 99 Mechanical Ventilator 40 06/11/17 18:45 131 39 95/61 99 Mechanical Ventilator 40 06/11/17 18:36 132 39 40 06/11/17 18:30 132 38 97/45 99 Mechanical Ventilator 40 06/11/17 18:15 133 38 98/61 99 Mechanical Ventilator 40 06/11/17 18:00 134 39 93/48 99 Mechanical Ventilator 40 06/11/17 18:00 93/48 06/11/17 18:00 93/48 06/11/17 17:45 133 38 112/76 98 Mechanical Ventilator 40 06/11/17 17:30 133 38 104/74 98 Mechanical Ventilator 40 06/11/17 17:15 132 38 90/70 99 Mechanical Ventilator 40 06/11/17 17:03 132 39 50 06/11/17 17:00 114/61 06/11/17 17:00 135 38 89/75 99 Mechanical Ventilator 40 06/11/17 16:45 133 37 79/51 98 Mechanical Ventilator 40 06/11/17 16:30 133 37 96/62 98 Mechanical Ventilator 40 06/11/17 16:15 133 38 106/57 98 Mechanical Ventilator 40 06/11/17 16:00 40 06/11/17 16:00 97.9 132 35 106/66 99 Mechanical Ventilator 40 06/11/17 16:00 122/63 06/11/17 16:00 122/63 06/11/17 16:00 133 06/11/17 15:45 135 38 117/80 99 Mechanical Ventilator 40 06/11/17 15:30 135 35 130/43 99 Mechanical Ventilator 40 06/11/17 15:30 130/43 06/11/17 15:15 135 35 122/72 99 Mechanical Ventilator 40 06/11/17 15:00 137 35 106/66 99 Mechanical Ventilator 40 06/11/17 15:00 112/87 06/11/17 15:00 112/06/11/17 14:54 140 38 50 06/11/17 14:45 140 37 106/66 93 Mechanical Ventilator 40 06/11/17 14:30 139 34 101/61 93 Mechanical Ventilator 40 06/11/17 14:30 101/61 06/11/17 14:15 139 34 109/58 94 Mechanical Ventilator 40 06/11/17 14:00 138 34 105/77 94 Mechanical Ventilator 40 06/11/17 14:00 108/61 06/11/17 13:45 137 38 105/77 94 Mechanical Ventilator 40 06/11/17 13:30 137 38 102/57 94 Mechanical Ventilator 40 06/11/17 13:30 102/57 06/11/17 13:20 136 37 50 06/11/17 13:15 136 38 89/54 94 Mechanical Ventilator 40 06/11/17 13:10 106/75 06/11/17 13:00 136 37 106/75 94 Mechanical Ventilator 40 06/11/17 13:00 113/71 06/11/17 12:45 133 37 106/46 99 Mechanical Ventilator 40 06/11/17 12:30 134 36 109/46 99 Mechanical Ventilator 40 06/11/17 12:15 98.1 135 37 106/76 94 Mechanical Ventilator 40 06/11/17 12:11 107/75 06/11/17 12:00 40 06/11/17 12:00 107/75 06/11/17 12:00 98.1 134 33 107/75 94 Mechanical Ventilator 40 06/11/17 12:00 136 06/11/17 11:45 136 37 107/75 94 Mechanical Ventilator 40 06/11/17 11:30 136 37 102/75 94 Mechanical Ventilator 40 06/11/17 11:15 137 34 112/82 94 Mechanical Ventilator 40 06/11/17 11:00 135 34 99/80 94 Mechanical Ventilator 40 06/11/17 11:00 105/70 06/11/17 10:56 135 36 50 06/11/17 10:45 136 38 90/56 94 Mechanical Ventilator 40 06/11/17 10:34 85/41 06/11/17 10:30 136 37 99/80 94 Mechanical Ventilator 40 06/11/17 10:15 136 33 95/56 94 Mechanical Ventilator 40 06/11/17 10:00 90/56 06/11/17 10:00 136 36 90/56 94 Mechanical Ventilator 40 Labs: Labs Test 06/10/17 20:03 06/10/17 21:57 06/11/17 00:50 06/11/17 07:21 White Blood Count 18.2 K/UL (4.8-10.8) Red Blood Count 3.32 M/UL (4.20-5.40) Hemoglobin 10.0 G/DL (12.0-16.0) Hematocrit 31.3 % (37.0-47.0) Mean Corpuscular Volume 94 FL (80-99) Mean Corpuscular Hemoglobin 30.2 PG (27.0-31.0) Mean Corpuscular Hemoglobin Concent 32.0 G/DL (32.0-36.0) Red Cell Distribution Width 14.7 % (11.6-14.8) Platelet Count 94 K/UL (150-450) Mean Platelet Volume 7.1 FL (6.5-10.1) Neutrophils (%) (Auto) % (45.0-75.0) Lymphocytes (%) (Auto) % (20.0-45.0) Monocytes (%) (Auto) % (1.0-10.0) Eosinophils (%) (Auto) % (0.0-3.0) Basophils (%) (Auto) % (0.0-2.0) Differential Total Cells Counted 100 Neutrophils % (Manual) 78 % (45-75) Lymphocytes % (Manual) 10 % (20-45) Monocytes % (Manual) 4 % (1-10) Eosinophils % (Manual) 0 % (0-3) Basophils % (Manual) 0 % (0-2) Band Neutrophils 8 % (0-8) Platelet Estimate Decreased Platelet Morphology Normal Hypochromasia 1+ Anisocytosis 1+ Prothrombin Time 13.4 SEC (9.30-11.50) Prothromb Time International Ratio 1.3 (0.9-1.1) Activated Partial Thromboplast Time 25 SEC (23-33) Urine Color Yellow Urine Appearance Clear Urine pH 5 (4.5-8.0) Urine Specific [place] 1.015 (1.005-1.035) Urine Protein 1+ (NEGATIVE) Urine Glucose (UA) Negative (NEGATIVE) Urine Ketones Negative (NEGATIVE) Urine Occult Blood 3+ (NEGATIVE) Urine Nitrite Negative (NEGATIVE) Urine Bilirubin Negative (NEGATIVE) Urine Urobilinogen Normal MG/DL (0.0-1.0) Urine Leukocyte Esterase 2+ (NEGATIVE) Urine RBC 5-10 /HPF (0 - 2) Urine WBC 2-4 /HPF (0 - 2) Urine Squamous Epithelial Cells Few /LPF (NONE/OCC) Urine Bacteria Few /HPF (NONE) Sodium Level 144 mEQ/L (135-145) Potassium Level 4.0 mEQ/L (3.4-4.9) Chloride Level 114 mEQ/L (98-107) Carbon Dioxide Level 16 mEQ/L (20-30) Anion Gap 14 (5-15) Blood Urea Nitrogen 11 mg/dL (7-23) Creatinine 1.1 mg/dL (0.5-0.9) Estimat Glomerular Filtration Rate mL/min (>60) Glucose Level 197 mg/dL (74-106) Calcium Level 7.0 mg/dL (8.6-10.2) Total Bilirubin 0.6 mg/dL (0.0-1.2) Aspartate Amino Transf (AST/SGOT) 95 U/L (5-40) Alanine Aminotransferase (ALT/SGPT) 32 U/L (3-33) Alkaline Phosphatase 26 U/L (35-104) Total Creatine Kinase 4006 U/L (26-140) 3963 U/L (26-140) Creatine Kinase MB 299.9 ng/mL (< 3.8) 271.4 ng/mL (< 3.8) Creatine Kinase MB Relative Index 7.4 6.8 Troponin I < 0.30 ng/mL (<=0.30) < 0.30 ng/mL (<=0.30) Total Protein 3.6 g/dL (6.6-8.7) Albumin 2.2 g/dL (3.5-5.2) Globulin 1.4 g/dL Albumin/Globulin Ratio 1.5 (1.0-2.7) Arterial Blood pH 6.962 (7.350-7.450) 7.330 (7.350-7.450) Arterial Blood Partial Pressure CO2 50.9 mmHg (35.0-45.0) 25.4 mmHg (35.0-45.0) Arterial Blood Partial Pressure O2 369.1 mmHg (75.0-100.0) 148.0 mmHg (75.0-100.0) Arterial Blood HCO3 11.2 mmol/L (22.0-26.0) 13.3 mmol/L (22.0-26.0) Arterial Blood Oxygen Saturation 99.2 % (92.0-98.0) 98.2 % (92.0-98.0) Arterial Blood Base Excess -19.6 -11.1 Quirino Test Positive Positive Lactic Acid Level 5.80 mmol/L (0.66-2.22) Pro-B-Type Natriuretic Peptide 642 pg/mL (0-450) Test 06/11/17 08:00 06/11/17 16:00 06/11/17 18:45 06/12/17 04:00 White Blood Count 16.0 K/UL (4.8-10.8) 20.1 K/UL (4.8-10.8) Red Blood Count 3.24 M/UL (4.20-5.40) 2.65 M/UL (4.20-5.40) Hemoglobin 9.4 G/DL (12.0-16.0) 8.0 G/DL (12.0-16.0) Hematocrit 29.6 % (37.0-47.0) 24.3 % (37.0-47.0) Mean Corpuscular Volume 92 FL (80-99) 92 FL (80-99) Mean Corpuscular Hemoglobin 29.2 PG (27.0-31.0) 30.0 PG (27.0-31.0) Mean Corpuscular Hemoglobin Concent 31.9 G/DL (32.0-36.0) 32.8 G/DL (32.0-36.0) Red Cell Distribution Width 15.0 % (11.6-14.8) 15.3 % (11.6-14.8) Platelet Count 105 K/UL (150-450) 103 K/UL (150-450) Mean Platelet Volume 6.4 FL (6.5-10.1) 6.2 FL (6.5-10.1) Neutrophils (%) (Auto) 83.8 % (45.0-75.0) % (45.0-75.0) Lymphocytes (%) (Auto) 7.6 % (20.0-45.0) % (20.0-45.0) Monocytes (%) (Auto) 7.8 % (1.0-10.0) % (1.0-10.0) Eosinophils (%) (Auto) 0.0 % (0.0-3.0) % (0.0-3.0) Basophils (%) (Auto) 0.7 % (0.0-2.0) % (0.0-2.0) Sodium Level 146 mEQ/L (135-145) 142 mEQ/L (135-145) 141 mEQ/L (135-145) Potassium Level 4.5 mEQ/L (3.4-4.9) 4.1 mEQ/L (3.4-4.9) 4.0 mEQ/L (3.4-4.9) Chloride Level 117 mEQ/L (98-107) 115 mEQ/L (98-107) 115 mEQ/L (98-107) Carbon Dioxide Level 17 mEQ/L (20-30) 13 mEQ/L (20-30) 15 mEQ/L (20-30) Anion Gap 12 (5-15) 14 (5-15) 11 (5-15) Blood Urea Nitrogen 14 mg/dL (7-23) 19 mg/dL (7-23) 24 mg/dL (7-23) Creatinine 1.4 mg/dL (0.5-0.9) 2.0 mg/dL (0.5-0.9) 2.2 mg/dL (0.5-0.9) Estimat Glomerular Filtration Rate mL/min (>60) mL/min (>60) mL/min (>60) Glucose Level 167 mg/dL (74-106) 247 mg/dL (74-106) 148 mg/dL (74-106) Lactic Acid Level 5.30 mmol/L (0.66-2.22) 3.70 mmol/L (0.66-2.22) 2.00 mmol/L (0.66-2.22) Calcium Level 6.2 mg/dL (8.6-10.2) 6.0 mg/dL (8.6-10.2) 6.1 mg/dL (8.6-10.2) Total Bilirubin 0.3 mg/dL (0.0-1.2) 0.2 mg/dL (0.0-1.2) 0.3 mg/dL (0.0-1.2) Aspartate Amino Transf (AST/SGOT) 123 U/L (5-40) 122 U/L (5-40) 119 U/L (5-40) Alanine Aminotransferase (ALT/SGPT) 45 U/L (3-33) 58 U/L (3-33) 53 U/L (3-33) Alkaline Phosphatase 28 U/L (35-104) 28 U/L (35-104) 43 U/L (35-104) Creatine Kinase MB 241.6 ng/mL (< 3.8) Total Protein 3.8 g/dL (6.6-8.7) 3.6 g/dL (6.6-8.7) 3.7 g/dL (6.6-8.7) Albumin 2.3 g/dL (3.5-5.2) 2.0 g/dL (3.5-5.2) 1.9 g/dL (3.5-5.2) Globulin 1.5 g/dL 1.6 g/dL 1.8 g/dL Albumin/Globulin Ratio 1.5 (1.0-2.7) 1.2 (1.0-2.7) 1.0 (1.0-2.7) Total Creatine Kinase 2945 U/L (26-140) 1916 U/L (26-140) Troponin I 0.51 ng/mL (<=0.30) 0.31 ng/mL (<=0.30) Differential Total Cells Counted 100 Neutrophils % (Manual) 70 % (45-75) Lymphocytes % (Manual) 10 % (20-45) Monocytes % (Manual) 1 % (1-10) Eosinophils % (Manual) 0 % (0-3) Basophils % (Manual) 0 % (0-2) Band Neutrophils 19 % (0-8) Platelet Estimate Decreased Platelet Morphology Normal Poikilocytosis 1+ Anisocytosis 1+ Phosphorus Level 2.4 MG/DL (2.5-4.9) Lactate Dehydrogenase 513 U/L (135-225) Test 06/12/17 06:00 Arterial Blood pH 7.330 (7.350-7.450) Arterial Blood Partial Pressure CO2 29.5 mmHg (35.0-45.0) Arterial Blood Partial Pressure O2 71.6 mmHg (75.0-100.0) Arterial Blood HCO3 15.2 mmol/L (22.0-26.0) Arterial Blood Oxygen Saturation 92.7 % (92.0-98.0) Arterial Blood Base Excess -9.7 Quirino Test Positive Objective: WDWN NAD improved breath sounds bilaterally without rhonchi or wheeze S1S2 tachy RR without MRG reduced bowel sounds, nontender no HSM no CC; trace edema nonfocal poor LOC Micro: Microbiology Date/Time Source Procedure Growth Status 06/11/17 00:45 Blood Blood Culture - Preliminary NO GROWTH AFTER 24 HOURS Resulted 06/11/17 00:45 Blood Blood Culture - Preliminary NO GROWTH AFTER 24 HOURS Resulted Accucheck: 167 MARISABEL CISNEROS Jun 12, 2017 09:54
[2017-06-12] MEDS: Sodium Bicarbonate 100 ML in D5W 1000ml 1,000 ML IV SCH ×2 (10:21→21:26)
--- NOTE | 2017-06-12 11:30 | Progress Note ---
DATE: 06/12/2017 CARDIOLOGY PROGRESS NOTE SUBJECTIVE: The patient remains in the intensive care unit. Her condition remains critical. The patient remains on ventilator support as well as pressors. She is on amiodarone. Monitored rhythm is atrial fibrillation with episodes of sinus arrhythmia and frequent PACs. OBJECTIVE: LUNGS: Bilateral breath sounds. HEART: Irregularly irregular rhythm. Normal S1 and S2. ABDOMEN: Soft. EXTREMITIES: No edema. LABORATORY DATA: Sodium 141, potassium 4.0, chloride 115, bicarb 15, BUN 24, and creatinine 2.2. Phosphorus 2.4. CK is decreased to 1900. Albumin 1.9. Troponin 0.31. White count 20, hemoglobin 8. IMPRESSION: 1. Status post spine surgery. 2. Rhabdomyolysis. 3. Acute myocardial ischemia. 4. Sepsis with shock. 5. Anemia. 6. Lactic acidosis recovered. 7. Paroxysmal atrial fibrillations. 8. Acute diastolic congestive heart failure. 9. Postoperative anoxia. PLAN: 1. Taper off pressors. 2. Volume support. 3. Continue amiodarone. 4. Broad spectrum antibiotics. 5. Transfuse for hemoglobin dropping below 8 grams. 6. DVT and stress ulcer prophylaxis. 7. Continue amiodarone. Praful Stewart M.D. DR: LETTY JOB#: [id number] CC:
--- NOTE | 2017-06-12 11:30 | Consultation ---
DATE OF CONSULTATION: 06/11/2017 NEUROLOGICAL CONSULTATION CONSULTING PHYSICIAN: John Bautista M.D. REQUESTING PHYSICIAN: Yifan Hampton M.D. HISTORY OF PRESENT ILLNESS: The patient is a 76-year-old female, seen in neurological consultation to evaluate new onset of unresponsiveness. The patient is known to have a preexistent lumbar spinal stenosis, hyperlipidemia, but no other major medical problems. Yesterday, on 06/10/2017, the patient underwent a lumbar spine surgery with fusion L1 through S1. Apparently, during the surgery, she had a 1 unit of packed red blood cells infused, 1 liter of normal saline was given postoperative apparently for hypotension. There is no information of any uneventful event during the surgery. Following surgery in postop facility, she was given epinephrine. No narcotics apparently was given. The patient reportedly was nonresponsive and with this she was brought to the emergency room. Blood pressure on admission was 89/36. She has significant tachycardia and hypotension. Laboratory work was obtained. A stat CT of the brain was obtained, this revealed no evidence of acute abnormalities. No mass effect. No midline shift. No hemorrhage. Laboratory work included a CBC study with WBC 3.2, hemoglobin 10.1, hematocrit 31.3 and platelet count of 94,000. Coagulation panel with INR of 1.3. Urinalysis, 2+ leukocyte esterase and 1+ protein. Chemistry panel on admission included creatinine 1.1, blood sugar 197, CPK 4005, CK-MB 299.9, BNP of 632, and troponin of 0.63. Liver enzymes abnormality is noted. AST 123 and ALT 45. Creatinine 1.4. Since admission to present, the patient's condition remained unchanged. She is unresponsive, intubated, hypotensive on Levophed, and ventilatory support. PAST MEDICAL HISTORY: 1. Hyperlipidemia. 2. Lumbar spinal stenosis. No major medical problems reported. FAMILY HISTORY: Noncontributory. SOCIAL HISTORY: No evidence of alcohol or drug abuse. REVIEW OF SYMPTOMS: Unable to obtain due to the patient's status. PHYSICAL EXAMINATION: GENERAL: The patient is a well-developed, ill-appearing, pale, elderly female now intubated on ventilator. VITAL SIGNS: Blood pressure 81/65, on Levophed. MUSCULOSKELETAL: Peripheral pulses 1+ symmetric. SKIN EXAMINATION: Unremarkable. No rash, somewhat pale. MENTAL STATUS: No response to voice or sternal rub. CRANIAL NERVE II: Pupils are 3 mm responding to light and accommodation. Extraocular movement roving lateral gazes. Positive Doll maneuver. Fundi poorly visualized. CRANIAL NERVE V: Reduced corneal responses. CRANIAL NERVE VII: No facial movement noted. CRANIAL NERVE IX THROUGH XII: Absent gag response, but only on deep suction. Appears slight gag. Tongue is in midline. Reduced palate elevation. MOTOR EXAMINATION: Flaccid upper and lower extremities. No spontaneous movement. No involuntary movement. Deep tendon reflexes depressed. Absent biceps, triceps, brachioradialis, knee and ankle jerks. Plantar responses are mute. IMPRESSION: 1. This is a 76-year-old in postoperative state who has now recovered with progressive unresponsiveness now comatose most likely multifactorial toxic metabolic encephalopathy. 2. Renal failure. 3. Hepatic failure. 4. Rhabdomyolysis. 5. Oliguria. 6. Shock state. RECOMMENDATIONS: The patient is to remain in intensive care unit. Continue with the respiratory support. Continue with the pressors, intravenous fluids, and antibiotics. Close monitoring of renal and liver function. Check EEG. Blood culture and urine cultures are pending. Discussed the patient's status with medical staff. Thank you for allowing me to see this interesting patient in neurological consultation. John Bautista M.D. DR: JONAS JOB#: [id number] CC:
--- NOTE | 2017-06-12 11:34 | Diagnostic Imaging Report ---
Indication: Shortness of breath Technique: XRAY CHEST 1 V Comparison: 06/11/17 Findings: Endotracheal tube and nasogastric tube are unchanged. The cardiomediastinal silhouette is stable. There is right basilar atelectasis. Left basilar atelectasis or small pleural effusion is again noted. Osseous structures are stable. There is a calcified granuloma of the right lung. Impression: No interval change from 06/11/17.
--- NOTE | 2017-06-12 13:15 | Consultation ---
DATE OF CONSULTATION: 06/10/2017 CARDIOLOGY CONSULTATION REQUESTING PHYSICIAN: Yifan Hampton M.D. REASON FOR CONSULTATION: Shock. HISTORY OF PRESENT ILLNESS: The patient was seen in the emergency room at [facility]. She was transferred there from the [facility] across the street where she had undergone level 1 S1 fusion earlier today. The patient came out of the OR at approximately 5 p.m. went to at 7 p.m. and was given a unit of packed red blood cells and some IV fluids. No narcotics were apparently given. The patient was found unresponsive. She was given Narcan as well as epinephrine. She was unresponsive and hypotensive prior to transfer here. In the OR, the patient apparently received 4 L of normal saline. PAST MEDICAL HISTORY: Hyperlipidemia. ALLERGIES: None. MEDICATIONS: Prior to admission unknown. SOCIAL HISTORY: Negative for smoking, alcohol, or substance abuse. FAMILY HISTORY: Unknown. REVIEW OF SYSTEMS: Otherwise not obtainable from the patient. Pertinent data from records outlined above. PHYSICAL EXAMINATION: GENERAL: Orally intubated, mechanically ventilated. LUNGS: Bilateral breath sounds. Scattered rhonchi. HEART: Regular rhythm. Rapid rate. Normal S1 and S2. ABDOMEN: Soft. EXTREMITIES: Trace edema. LABORATORY AND DIAGNOSTIC DATA: Chest x-ray reveals no bilateral infiltrates. EKG sinus rhythm with sinus tachycardia with no acute ST changes. Labs, sodium 144, potassium 4, bicarbonate 16, BUN 11, and creatinine 1.1. CK 4000. Albumin 2.2. White count is 18.2, hemoglobin 10. ABG, pH 6.96, pCO2 51, and pO2 369. IMPRESSION: 1. Shock. 2. Acute respiratory failure. 3. Acute respiratory acidosis. 4. Status post spinal surgery. 5. Acute myocardial ischemia. 6. Secondary sinus tachycardia. 7. Rhabdomyolysis. 8. Lactic acidosis. 9. Severe protein-calorie malnutrition. PLAN: Ventilator support. Volume resuscitation. Empiric broad-spectrum antibiotics. Serial troponin. Monitor volume status. Serial CK levels. Repeat lactic acid levels. DVT and stress ulcer prophylaxis. Avoid sedation. Imaging studies of the brain, we will follow. Condition critical. Prognosis guarded. Praful Stewart M.D. DR: Lit JOB#: [id number] CC:
--- NOTE | 2017-06-12 13:30 | Consultation ---
DATE OF CONSULTATION: 06/11/2017 NOTE: POOR AUDIO QUALITY HEMATOLOGY/ONCOLOGY CONSULTATION CONSULTING PHYSICIAN: Franco De La Rosa M.D. ATTENDING PHYSICIAN: Yifan Hampton M.D. REASON FOR CONSULTATION: Evaluation of anemia, leukocytosis, and possible transfusion reaction. IDENTIFICATION DATA: Dear Dr. Yifan Hampton, The patient is a pleasant 76-year-old female, currently in the ICU, has a past medical history, which is significant for status post surgery, anuresis, ZEKE, and recent rhabdomyolysis, admitted for altered mental status. Postop from L5-S1 fusion, so brought in by ambulance from . The patient received 1 unit PRBCs and was transferred to [facility] and Hematology service was consulted for potential transfusion reaction. Upon discussing with nurse, the patient did not have any significant reaction, completed 1 unit of blood, was given liters of fluids, and no other events noted. PAST MEDICAL HISTORY: Lethargy, anemia, spinal stenosis, hyperlipidemia, hypertension, and hypercholesterolemia. PAST SURGICAL HISTORY: None noted. MEDICATIONS: Reviewed in the chart. ALLERGIES: Difficult to obtain. REVIEW OF SYSTEMS: Difficult to obtain. PHYSICAL EXAMINATION: VITAL SIGNS: Pulse 132, respiratory rate 39, blood pressure 192/48, and O2 sat on ventilator. . LABORATORY DATA: WBC 15,000, hemoglobin 9.4, and a platelet count 105,000. ASSESSMENT AND PLAN: 1. Thrombocytopenia potentially secondary to underlying sepsis. 2. Anemia secondary to chronic disease. 3. Decreased hemoglobin and hematocrit, rule out gastrointestinal bleed. 4. Potential transfusion reaction. 5. On review of the medical record, I do not note any significant reaction. Based on the ER report from as well as Dr. Estevez ____. 6. Altered mental status. 7. Sepsis. 8. Leukocytosis. 9. Rhabdomyolysis. 10. Cerebrovascular accident. 11. Acute kidney injury. 12. Discussed with staff. Franco De La Rosa M.D. DR: MATT JOB#: [id number] CC:
--- NOTE | 2017-06-12 14:06 | General Progress Note ---
Assessment/Plan Problem List: (1) Pneumonia ICD Codes: J18.9 - Pneumonia, unspecified organism SNOMED: 271798125 Qualifiers: Qualified Codes: J18.9 - Pneumonia, unspecified organism (2) Sepsis ICD Codes: A41.9 - Sepsis, unspecified organism SNOMED: 39520727 Qualifiers: Qualified Codes: A41.9 - Sepsis, unspecified organism (3) ZEKE (acute kidney injury) ICD Codes: N17.9 - Acute kidney failure, unspecified SNOMED: 92711260 (4) Altered level of consciousness ICD Codes: R40.4 - Transient alteration of awareness SNOMED: 0637530 (5) respiratory failure, on ventilator (6) septic shock Status: stable, progressing Assessment/Plan ivf monitor fluid status abx follow up cultures dvt/stress ulcer prophylaxis remains critical and guarded Subjective ROS Limited/Unobtainable: No Constitutional: Reports: malaise, weakness HEENT: Reports: no symptoms Cardiovascular: Reports: no symptoms Respiratory: Reports: shortness of breath Gastrointestinal/Abdominal: Reports: no symptoms Genitourinary: Reports: no symptoms Neurologic/Psychiatric: Reports: no symptoms Endocrine: Reports: no symptoms Hematologic/Lymphatic: Reports: anemia Allergies: Coded Allergies: No Known Allergies (Unverified , 06/10/17) All Systems: reviewed and negative except above Subjective improving. off levophed. more alert. +edema. remains orally intubated Objective Last 24 Hour Vital Signs Date Time Temp Pulse Resp B/P Pulse Ox O2 Delivery O2 Flow Rate FiO2 06/12/17 13:17 108 33 40 06/12/17 13:00 105 30 135/68 100 Mechanical Ventilator 60 06/12/17 12:00 98.7 103 26 128/56 100 Mechanical Ventilator 60 06/12/17 12:00 111 06/12/17 11:56 50 06/12/17 11:29 117 32 40 06/12/17 11:00 106 26 146/55 100 Mechanical Ventilator 60 06/12/17 10:08 98.9 06/12/17 10:00 109 28 121/37 100 Mechanical Ventilator 60 06/12/17 09:00 104 28 131/50 99 Mechanical Ventilator 60 06/12/17 08:47 102 36 40 06/12/17 08:00 102 33 127/62 99 Mechanical Ventilator 60 06/12/17 08:00 100 06/12/17 07:05 95 33 40 06/12/17 07:00 109 26 106/63 99 Mechanical Ventilator 60 06/12/17 05:30 109 31 145/54 99 Mechanical Ventilator 60 06/12/17 05:03 104 28 40 06/12/17 05:00 107 32 132/67 98 Mechanical Ventilator 60 06/12/17 05:00 132/50 06/12/17 04:30 110 31 132/50 98 Mechanical Ventilator 60 06/12/17 04:15 50 06/12/17 04:00 60 06/12/17 04:00 116/70 06/12/17 04:00 107 06/12/17 04:00 98.9 107 31 132/50 98 Mechanical Ventilator 60 06/12/17 03:30 115 33 121/58 98 Mechanical Ventilator 60 06/12/17 03:15 112 33 115/61 99 Mechanical Ventilator 60 06/12/17 03:03 115 37 50 06/12/17 03:00 114 33 126/58 98 Mechanical Ventilator 60 06/12/17 03:00 126/58 06/12/17 02:45 115 35 139/55 99 Mechanical Ventilator 60 06/12/17 02:30 116 35 130/64 98 Mechanical Ventilator 60 06/12/17 02:15 117 34 129/52 98 Mechanical Ventilator 60 06/12/17 02:00 115 32 133/54 98 Mechanical Ventilator 60 06/12/17 02:00 133/54 06/12/17 01:30 114 29 123/52 98 Mechanical Ventilator 60 06/12/17 01:00 115 34 125/55 98 Mechanical Ventilator 60 06/12/17 01:00 125/55 06/12/17 00:54 115 34 60 06/12/17 00:30 114 33 119/58 91 Mechanical Ventilator 60 06/12/17 00:00 60 06/12/17 00:00 118 06/12/17 00:00 116/57 06/12/17 00:00 100.0 118 35 116/57 100 Mechanical Ventilator 40 06/11/17 23:30 119 36 115/48 99 Mechanical Ventilator 40 06/11/17 23:05 125 35 80 06/11/17 23:00 123/62 06/11/17 23:00 123/62 06/11/17 23:00 122 35 128/46 100 Mechanical Ventilator 40 06/11/17 22:30 127 35 111/60 100 Mechanical Ventilator 40 06/11/17 22:00 131/65 06/11/17 22:00 131/65 06/11/17 22:00 124 32 131/65 100 Mechanical Ventilator 40 06/11/17 21:30 126 35 122/42 100 Mechanical Ventilator 40 06/11/17 21:15 123 35 122/53 100 Mechanical Ventilator 40 06/11/17 21:14 125 06/11/17 21:10 94/61 06/11/17 21:00 112/41 06/11/17 21:00 112/41 06/11/17 21:00 119 35 112/41 100 Mechanical Ventilator 40 06/11/17 20:51 134 39 100 06/11/17 20:45 124 36 87/45 100 Mechanical Ventilator 40 06/11/17 20:30 128 35 86/51 100 Mechanical Ventilator 40 06/11/17 20:15 120 33 104/56 100 Mechanical Ventilator 40 06/11/17 20:00 100.7 127 32 104/61 100 Mechanical Ventilator 40 06/11/17 20:00 40 06/11/17 20:00 104/61 06/11/17 20:00 104/61 06/11/17 19:45 122 32 106/63 100 Mechanical Ventilator 40 06/11/17 19:30 132 32 95/49 100 Mechanical Ventilator 40 06/11/17 19:15 129 29 90/60 99 Mechanical Ventilator 40 06/11/17 19:00 101/54 06/11/17 19:00 101/54 06/11/17 19:00 131 34 95/61 99 Mechanical Ventilator 40 06/11/17 18:45 131 39 95/61 99 Mechanical Ventilator 40 06/11/17 18:36 132 39 40 06/11/17 18:30 132 38 97/45 99 Mechanical Ventilator 40 06/11/17 18:15 133 38 98/61 99 Mechanical Ventilator 40 06/11/17 18:00 134 39 93/48 99 Mechanical Ventilator 40 06/11/17 18:00 93/48 06/11/17 18:00 93/48 06/11/17 17:45 133 38 112/76 98 Mechanical Ventilator 40 06/11/17 17:30 133 38 104/74 98 Mechanical Ventilator 40 06/11/17 17:15 132 38 90/70 99 Mechanical Ventilator 40 06/11/17 17:03 132 39 50 06/11/17 17:00 114/61 06/11/17 17:00 135 38 89/75 99 Mechanical Ventilator 40 06/11/17 16:45 133 37 79/51 98 Mechanical Ventilator 40 06/11/17 16:30 133 37 96/62 98 Mechanical Ventilator 40 06/11/17 16:15 133 38 106/57 98 Mechanical Ventilator 40 06/11/17 16:00 40 06/11/17 16:00 97.9 132 35 106/66 99 Mechanical Ventilator 40 06/11/17 16:00 122/63 06/11/17 16:00 122/63 06/11/17 16:00 133 06/11/17 15:45 135 38 117/80 99 Mechanical Ventilator 40 06/11/17 15:30 135 35 130/43 99 Mechanical Ventilator 40 06/11/17 15:30 130/43 06/11/17 15:15 135 35 122/72 99 Mechanical Ventilator 40 06/11/17 15:00 137 35 106/66 99 Mechanical Ventilator 40 06/11/17 15:00 112/87 06/11/17 15:00 112/87 06/11/17 14:54 140 38 50 06/11/17 14:45 140 37 106/66 93 Mechanical Ventilator 40 06/11/17 14:30 139 34 101/61 93 Mechanical Ventilator 40 06/11/17 14:30 101/61 06/11/17 14:15 139 34 109/58 94 Mechanical Ventilator 40 Intake and Output 06/11/17 06/12/17 19:00 07:00 Intake Total 2723.370 ml 2270.352 ml Output Total 350 ml 335 ml Balance 2373.370 ml 1935.352 ml Intake Oral 0 ml IV Total 2723.370 ml 2270.352 ml Output Urine Total 40 ml 215 ml Drainage Total 310 ml 120 ml Laboratory Tests 06/11/17 16:00: Sodium Level 142, Potassium Level 4.1, Chloride Level 115H, Carbon Dioxide Level 13L, Anion Gap 14, Blood Urea Nitrogen 19, Creatinine 2.0H, Estimat Glomerular Filtration Rate , Glucose Level 247H, Calcium Level 6.0L, Total Bilirubin 0.2, Aspartate Amino Transf (AST/SGOT) 122H, Alanine Aminotransferase (ALT/SGPT) 58H, Alkaline Phosphatase 28L, Total Creatine Kinase 2945H, Troponin I 0.51*H, Total Protein 3.6L, Albumin 2.0L, Globulin 1.6, Albumin/Globulin Ratio 1.2 06/11/17 18:45: Lactic Acid Level 3.70H 06/12/17 04:00: Sodium Level 141, Potassium Level 4.0, Chloride Level 115H, Carbon Dioxide Level 15L, Anion Gap 11, Blood Urea Nitrogen 24H, Creatinine 2.2H, Estimat Glomerular Filtration Rate , Glucose Level 148#H, Calcium Level 6.1L, Total Bilirubin 0.3, Aspartate Amino Transf (AST/SGOT) 119H, Alanine Aminotransferase (ALT/SGPT) 53H, Alkaline Phosphatase 43, Total Creatine Kinase 1916H, Troponin I 0.31*H, Total Protein 3.7L, Albumin 1.9L, Globulin 1.8, Albumin/Globulin Ratio 1.0, Lactic Acid Level 2.00, White Blood Count 20.1H, Red Blood Count 2.65L, Hemoglobin 8.0L, Hematocrit 24.3L, Mean Corpuscular Volume 92, Mean Corpuscular Hemoglobin 30.0, Mean Corpuscular Hemoglobin Concent 32.8, Red Cell Distribution Width 15.3H, Platelet Count 103L, Mean Platelet Volume 6.2L, Neutrophils (%) (Auto) , Lymphocytes (%) (Auto) , Monocytes (%) (Auto) , Eosinophils (%) (Auto) , Basophils (%) (Auto) , Differential Total Cells Counted 100, Neutrophils % (Manual) 70, Lymphocytes % (Manual) 10L, Monocytes % (Manual) 1, Eosinophils % (Manual) 0, Basophils % (Manual) 0, Band Neutrophils 19H, Platelet Estimate DecreasedL, Platelet Morphology Normal, Poikilocytosis 1+ , Anisocytosis 1+, Phosphorus Level 2.4L, Lactate Dehydrogenase 513H 06/12/17 06:00: Arterial Blood pH 7.330L, Arterial Blood Partial Pressure CO2 29.5L, Arterial Blood Partial Pressure O2 71.6L, Arterial Blood HCO3 15.2L, Arterial Blood Oxygen Saturation 92.7, Arterial Blood Base Excess -9.7, Quirino Test Positive Height (Feet): 5 Height (Inches): 8.00 Weight (Pounds): 168 General Appearance: WD/WN, lethargic Neck: supple Cardiovascular: regular rhythm Respiratory/Chest: rhonchi - bilaterally Abdomen: normal bowel sounds, non tender, soft, no organomegaly Edema: mild edema Neurologic: responsive, disoriented Skin: normal pigmentation JAMES PARKER Jun 12, 2017 14:06
--- NOTE | 2017-06-12 14:28 | Neurology Progress Note ---
Interim History Interim History ROS Limited/Unobtainable: Yes Complaints: coma Events: more responsive ,,EEG c/w severe encephalopathy, no sz activity Objective Physical Exam Last Vital Signs Date Time Temp Pulse Resp B/P Pulse Ox O2 Delivery O2 Flow Rate FiO2 06/12/17 14:00 110 30 132/53 100 Mechanical Ventilator 60 06/12/17 12:00 98.7 06/11/17 06:45 15.0 Laboratory Tests Test 06/11/17 16:00 06/11/17 18:45 06/12/17 04:00 06/12/17 06:00 Sodium Level 142 mEQ/L (135-145) 141 mEQ/L (135-145) Potassium Level 4.1 mEQ/L (3.4-4.9) 4.0 mEQ/L (3.4-4.9) Chloride Level 115 mEQ/L (98-107) H 115 mEQ/L (98-107) H Carbon Dioxide Level 13 mEQ/L (20-30) L 15 mEQ/L (20-30) L Anion Gap 14 (5-15) 11 (5-15) Blood Urea Nitrogen 19 mg/dL (7-23) 24 mg/dL (7-23) H Creatinine 2.0 mg/dL (0.5-0.9) H 2.2 mg/dL (0.5-0.9) H Estimat Glomerular Filtration Rate mL/min (>60) mL/min (>60) Glucose Level 247 mg/dL (74-106) H 148 mg/dL (74-106) #H Calcium Level 6.0 mg/dL (8.6-10.2) L 6.1 mg/dL (8.6-10.2) L Total Bilirubin 0.2 mg/dL (0.0-1.2) 0.3 mg/dL (0.0-1.2) Aspartate Amino Transf (AST/SGOT) 122 U/L (5-40) H 119 U/L (5-40) H Alanine Aminotransferase (ALT/SGPT) 58 U/L (3-33) H 53 U/L (3-33) H Alkaline Phosphatase 28 U/L (35-104) L 43 U/L (35-104) Total Creatine Kinase 2945 U/L (26-140) H 1916 U/L (26-140) H Troponin I 0.51 ng/mL (<=0.30) *H 0.31 ng/mL (<=0.30) *H Total Protein 3.6 g/dL (6.6-8.7) L 3.7 g/dL (6.6-8.7) L Albumin 2.0 g/dL (3.5-5.2) L 1.9 g/dL (3.5-5.2) L Globulin 1.6 g/dL 1.8 g/dL Albumin/Globulin Ratio 1.2 (1.0-2.7) 1.0 (1.0-2.7) Lactic Acid Level 3.70 mmol/L (0.66-2.22) H 2.00 mmol/L (0.66-2.22) White Blood Count 20.1 K/UL (4.8-10.8) H Red Blood Count 2.65 M/UL (4.20-5.40) L Hemoglobin 8.0 G/DL (12.0-16.0) L Hematocrit 24.3 % (37.0-47.0) L Mean Corpuscular Volume 92 FL (80-99) Mean Corpuscular Hemoglobin 30.0 PG (27.0-31.0) Mean Corpuscular Hemoglobin Concent 32.8 G/DL (32.0-36.0) Red Cell Distribution Width 15.3 % (11.6-14.8) H Platelet Count 103 K/UL (150-450) L Mean Platelet Volume 6.2 FL (6.5-10.1) L Neutrophils (%) (Auto) % (45.0-75.0) Lymphocytes (%) (Auto) % (20.0-45.0) Monocytes (%) (Auto) % (1.0-10.0) Eosinophils (%) (Auto) % (0.0-3.0) Basophils (%) (Auto) % (0.0-2.0) Differential Total Cells Counted 100 Neutrophils % (Manual) 70 % (45-75) Lymphocytes % (Manual) 10 % (20-45) L Monocytes % (Manual) 1 % (1-10) Eosinophils % (Manual) 0 % (0-3) Basophils % (Manual) 0 % (0-2) Band Neutrophils 19 % (0-8) H Platelet Estimate Decreased L Platelet Morphology Normal Poikilocytosis 1+ Anisocytosis 1+ Phosphorus Level 2.4 MG/DL (2.5-4.9) L Lactate Dehydrogenase 513 U/L (135-225) H Arterial Blood pH 7.330 (7.350-7.450) Arterial Blood Partial Pressure CO2 29.5 mmHg (35.0-45.0) L Arterial Blood Partial Pressure O2 71.6 mmHg (75.0-100.0) L Arterial Blood HCO3 15.2 mmol/L (22.0-26.0) L Arterial Blood Oxygen Saturation 92.7 % (92.0-98.0) Arterial Blood Base Excess -9.7 Quirino Test Positive General: well developed, no acute distress, other - intubatad Head: atraumatic Neck: no rigidity Neurologic Exam Mental Status: other - obtubded, arousable to pain Speech: other Language: other Cranial Nerve II: fundus normal Cranial Nerves III, IV, : PERRLA, EOMI Cranial Nerve V: masseters function normal Cranial Nerve VII: normal facial expressions Cranial Nerve VIII: no nystagmus Cranial Nerve IX: other - ok gag Cranial Nerve XII: tongue midline Motor System: no involuntary movement, no muscle wasting Sensory: other Deep Tendon Reflexes: 0 ankle (L), 0 ankle (R), 0 bicep (L), 0 bicep (R), 0 brachioradialis (L), 0 brachioradialis (R), 0 knee (L), 0 knee (R), 0 tricep (L) , 0 tricep (R) Reflexes: mute plantar (L), mute plantar (R) Impression/Recommendations Problems: (1) severe anoxic/metabolic encephalopathy (2) Anuresis (3) septic shock (4) respiratory failure, on ventilator (5) Rhabdomyolysis Status: unchanged Recommendations #[id number] cont present rx d/w staff prognosis improved LULU BAEZ Jun 12, 2017 14:28
[2017-06-12] MEDS ORDERED: Vancomycin 750mg/D5W 275ml IVPB ONE ×2 (17:00)
[2017-06-12 18:48] LABS: ANION GAP 11 (5-15); CARBON DIOXIDE 18 mEQ/L (20-30); CHLORIDE 114 mEQ/L (98-107); CREATININE 2.1 mg/dL (0.5-0.9); HEMOLYSIS 1; POTASSIUM 3.6 mEQ/L (3.4-4.9); SODIUM 143 mEQ/L (135-145)
[2017-06-12 18:50] LABS: CALCIUM 5.9 mg/dL (8.6-10.2)
[2017-06-12] MEDS ORDERED: Calcium Gluconate 10% 2 GM in NS 110 ML IVPB ONE (20:45)
[2017-06-12] MEDS: Dyna-Hex 2% Top Sol 8oz TOPIC SCH (21:27)
[2017-06-13] VITALS (24 sets, daily range): BP systolic 122–156; BP diastolic 44–81
--- NOTE | 2017-06-13 01:15 | Electroencephalogram ---
DATE OF PROCEDURE: 06/11/2017 ELECTROENCEPHALOGRAPHY REPORT REQUESTING PHYSICIAN: Yifan Hampotn M.D. HISTORY: This is a 76-year-old female, status post a lumbar spine surgery following which she remained unresponsive. EEG was requested to assess ongoing seizure activities. During the recording, the patient described as being lethargic, obtunded on ventilator assist, and at times restless. EEG was done using 18 electrodes placed on scalp to scalp, scalp to ear montages according to 10/20 International System. Most of recording, background activity consists of a poorly organized irregular at 5 hertz of low to medium voltage, theta activities with a reduced response to physiological stimulation. Throughout the recording, intermittently 1 to 2 per second with triphasic multifocal delta wave transients noted, at times generalized, higher voltage. There was no clinical evidence of paroxysmal event. No asymmetry from [id number]. No spike or wave activities. IMPRESSION: Abnormal EEG in presence of severe diffuse slowing with a triphasic and delta bifrontal transients. COMMENT: Above abnormality indicate severe encephalopathy, toxic metabolic, diffuse structural, anoxic. Presence of triphasic and delta slowing additional poor prognosis. Absence of paroxysmal epileptiform activity, does not rule out seizure disorder. John Bautista M.D. DR: JAYSHREE JOB#: [id number] CC:
[2017-06-13] MEDS: Piperacillin/Tazobactam 3.375 GM in D5W 110 ML IVPB SCH ×3 (05:30→22:01)
[2017-06-13] MEDS: Sodium Bicarbonate 100 ML in D5W 1000ml 1,000 ML IV SCH (05:30)
[2017-06-13 07:00] LABS: ANION GAP 13 (5-15); CALCIUM 6.2 mg/dL (8.6-10.2); CARBON DIOXIDE 20 mEQ/L (20-30); CHLORIDE 108 mEQ/L (98-107); CREATININE 1.7 mg/dL (0.5-0.9); HEMOLYSIS 2; SODIUM 141 mEQ/L (135-145)
[2017-06-13 07:21] LABS: MEAN CORPUSCULAR HEMOGLOBIN 29.6 PG (27.0-31.0); MEAN CORPUSCULAR HGB CONC 33.3 G/DL (32.0-36.0); MEAN CORPUSCULAR VOLUME 89 FL (80-99); PLATELET COUNT 99 K/UL (150-450); RED BLOOD COUNT 1.99 M/UL (4.20-5.40); RED CELL DISTRIBUTION WIDTH 13.9 % (11.6-14.8); WHITE BLOOD COUNT 14.5 K/UL (4.8-10.8)
[2017-06-13] MEDS ORDERED: KCl 10% 40mEq/30ml liquid NG ONE (08:00)
--- NOTE | 2017-06-13 08:17 | Infectious Diseases Prog Note ---
Assessment/Plan Assessment/Plan A; Sepsis/ SIRS Postprocedural respiratory failure Severe anemia Acute renal failure Hypokalemia P; continue Zosyn & Vancomycin Subjective ROS Limited/Unobtainable: Yes Constitutional: Reports: other - afebrile Allergies: Coded Allergies: No Known Allergies (Unverified , 06/10/17) Objective Vital Signs Last 24 Hour Vital Signs Date Time Temp Pulse Resp B/P Pulse Ox O2 Delivery O2 Flow Rate FiO2 06/13/17 07:20 100 41 40 06/13/17 07:00 105 37 135/67 100 Mechanical Ventilator 40 06/13/17 06:00 110 37 150/64 100 Mechanical Ventilator 40 06/13/17 05:00 112 35 140/53 100 Mechanical Ventilator 40 06/13/17 04:43 94 35 40 06/13/17 04:00 40 06/13/17 04:00 98.7 97 35 149/57 100 Mechanical Ventilator 40 06/13/17 04:00 97 06/13/17 03:00 103 36 143/49 99 Mechanical Ventilator 40 06/13/17 02:29 109 38 40 06/13/17 02:00 106 36 143/54 99 Mechanical Ventilator 40 06/13/17 01:00 106 35 142/51 100 Mechanical Ventilator 40 06/13/17 00:38 107 39 40 06/13/17 00:00 103 06/13/17 00:00 40 06/13/17 00:00 98.2 103 36 129/44 100 Mechanical Ventilator 40 06/12/17 23:06 105 34 40 06/12/17 23:00 111 36 145/57 99 Mechanical Ventilator 40 06/12/17 22:00 108 35 133/55 99 Mechanical Ventilator 40 06/12/17 21:00 118 37 136/51 98 Mechanical Ventilator 60 06/12/17 20:54 120 40 40 06/12/17 20:00 40 06/12/17 20:00 98.3 114 33 140/53 100 Mechanical Ventilator 60 06/12/17 20:00 114 06/12/17 19:03 117 35 40 06/12/17 19:00 112 34 143/55 99 Mechanical Ventilator 60 06/12/17 18:00 104 33 141/58 100 Mechanical Ventilator 60 06/12/17 17:00 106 30 139/60 100 Mechanical Ventilator 60 06/12/17 16:43 106 32 40 06/12/17 16:00 98.5 100 26 125/50 100 Mechanical Ventilator 60 06/12/17 16:00 50 06/12/17 16:00 101 06/12/17 15:13 116 33 40 06/12/17 15:00 111 28 135/54 100 Mechanical Ventilator 60 06/12/17 14:00 110 30 132/53 100 Mechanical Ventilator 60 06/12/17 13:17 108 33 40 06/12/17 13:00 105 30 135/68 100 Mechanical Ventilator 60 06/12/17 12:00 98.7 103 26 128/56 100 Mechanical Ventilator 60 06/12/17 12:00 111 06/12/17 11:56 50 06/12/17 11:29 117 32 40 06/12/17 11:00 106 26 146/55 100 Mechanical Ventilator 60 06/12/17 10:08 98.9 06/12/17 10:00 109 28 121/37 100 Mechanical Ventilator 60 06/12/17 09:00 104 28 131/50 99 Mechanical Ventilator 60 06/12/17 08:47 102 36 40 Height (Feet): 5 Height (Inches): 8.00 Weight (Pounds): 174 HEENT: other - orally intubated Respiratory/Chest: rhonchi - bilaterally, other - on ventilator Cardiovascular: tachycardia, other - off pressor Abdomen: soft, non tender, other - orogastric tube Extremities: no edema Neurologic/Psychiatric: other - more alert today Microbiology Date/Time Source Procedure Growth Status 06/11/17 00:45 Blood Blood Culture - Preliminary NO GROWTH AFTER 24 HOURS Resulted 06/11/17 00:45 Blood Blood Culture - Preliminary NO GROWTH AFTER 24 HOURS Resulted Laboratory Tests Test 06/12/17 14:25 06/12/17 17:45 06/13/17 06:30 06/13/17 07:00 Vancomycin Level Trough 15.7 ug/mL (5.0-12.0) H Sodium Level 143 mEQ/L (135-145) 141 mEQ/L (135-145) Potassium Level 3.6 mEQ/L (3.4-4.9) 3.0 mEQ/L (3.4-4.9) L Chloride Level 114 mEQ/L (98-107) H 108 mEQ/L (98-107) H Carbon Dioxide Level 18 mEQ/L (20-30) L 20 mEQ/L (20-30) Anion Gap 11 (5-15) 13 (5-15) Blood Urea Nitrogen 25 mg/dL (7-23) H 21 mg/dL (7-23) Creatinine 2.1 mg/dL (0.5-0.9) H 1.7 mg/dL (0.5-0.9) H Estimat Glomerular Filtration Rate mL/min (>60) mL/min (>60) Glucose Level 160 mg/dL (74-106) H 140 mg/dL (74-106) H Calcium Level 5.9 mg/dL (8.6-10.2) *L 6.2 mg/dL (8.6-10.2) L White Blood Count 14.5 K/UL (4.8-10.8) H Red Blood Count 1.99 M/UL (4.20-5.40) L Hemoglobin 5.9 G/DL (12.0-16.0) *L Hematocrit 17.7 % (37.0-47.0) L Mean Corpuscular Volume 89 FL (80-99) Mean Corpuscular Hemoglobin 29.6 PG (27.0-31.0) Mean Corpuscular Hemoglobin Concent 33.3 G/DL (32.0-36.0) Red Cell Distribution Width 13.9 % (11.6-14.8) Platelet Count 99 K/UL (150-450) L Mean Platelet Volume 6.0 FL (6.5-10.1) L Neutrophils (%) (Auto) % (45.0-75.0) Lymphocytes (%) (Auto) % (20.0-45.0) Monocytes (%) (Auto) % (1.0-10.0) Eosinophils (%) (Auto) % (0.0-3.0) Basophils (%) (Auto) % (0.0-2.0) Neutrophils % (Manual) Pending Lymphocytes % (Manual) Pending Platelet Estimate Pending Platelet Morphology Pending Current Medications Medications (Trade) Dose Ordered Sig/Josefa Route PRN Reason Start Time Stop Time Status Last Admin Dose Admin Acetaminophen (Tylenol) 650 mg Q4H PRN RECTAL Mild Pain (Pain Scale 1-3) 06/11/17 07:00 07/11/17 06:59 06/12/17 09:38 Acetaminophen 650 mg 650 mg Q4H PRN RECTAL FEVER OVER 100.5 F 06/11/17 21:45 07/11/17 21:44 06/11/17 22:22 Chlorhexidine Gluconate (Andreea-Hex 2%) 1 applic DAILY TOPIC 06/12/17 21:00 07/12/17 20:59 06/12/17 21:27 Norepinephrine Bitartrate/ Dextrose (Levophed/D5W) 508 ml @ 0 mls/hr Q24H IV 06/11/17 12:00 07/11/17 11:59 06/11/17 21:10 Pantoprazole 40 mg 40 mg EVERY 12 HOURS IVP 06/11/17 09:00 07/11/17 08:59 06/12/17 21:26 Piperacillin Sod/ Tazobactam Sod/ Dextrose (Zosyn/D5W) 110 ml @ 27.5 mls/hr EVERY 8 HOURS IVPB 06/11/17 09:00 06/16/17 08:59 06/13/17 05:30 Sodium Bicarbonate/ Dextrose (Sodium Bicarbonate/D5W 1000ml) 1,100 ml @ 125 mls/hr Q8H48M IV 06/12/17 10:30 07/12/17 10:29 06/13/17 05:30 Vancomycin HCl 1 ea 1 ea DAILY PRN MISC Per rx protocol 06/11/17 09:00 07/11/17 08:59 RUCHI MERCADO Jun 13, 2017 08:17
[2017-06-13 08:21] LABS: ANISOCYTOSIS 1+; BAND NEUTROPHILS % (MANUAL) 10 % (0-8); BASOPHILS % (MANUAL) 0 % (0-2); EOSINOPHILS % (MANUAL) 0 % (0-3); LYMPHOCYTES % (MANUAL) 8 % (20-45); NEUTROPHILS % (MANUAL) 75 % (45-75); NUCLEATED RED BLOOD CELLS 3 /100 WBC; PLATELET ESTIMATE DECREASED; PLATELET MORPHOLOGY NORMAL; TOTAL CELLS COUNTED 100
[2017-06-13 08:22] LABS: HYPOCHROMASIA 1+
[2017-06-13] MEDS: Pantoprazole Inj IVP SCH ×2 (08:33→20:31)
[2017-06-13 09:04] LABS: ABG ALLEN TEST POSITIVE; ABG BASE EXCESS -2.5; ABG PCO2 25.7 mmHg (35.0-45.0)
[2017-06-13 09:13] LABS: MEAN CORPUSCULAR HEMOGLOBIN 29.8 PG (27.0-31.0); MEAN CORPUSCULAR HGB CONC 33.3 G/DL (32.0-36.0); MEAN CORPUSCULAR VOLUME 89 FL (80-99); MEAN PLATELET VOLUME 6.3 FL (6.5-10.1); PLATELET COUNT 98 K/UL (150-450); RED BLOOD COUNT 1.97 M/UL (4.20-5.40); WHITE BLOOD COUNT 15.2 K/UL (4.8-10.8)
[2017-06-13 09:43] LABS: ANISOCYTOSIS 1+; BAND NEUTROPHILS % (MANUAL) 7 % (0-8); BASOPHILS % (MANUAL) 0 % (0-2); EOSINOPHILS % (MANUAL) 0 % (0-3); HYPOCHROMASIA 1+; LYMPHOCYTES % (MANUAL) 9 % (20-45); NEUTROPHILS % (MANUAL) 79 % (45-75); NUCLEATED RED BLOOD CELLS 1 /100 WBC; PLATELET ESTIMATE DECREASED; PLATELET MORPHOLOGY NORMAL; TOTAL CELLS COUNTED 100
[2017-06-13] MEDS ORDERED: NS 275ml ONE ×2 (10:56→15:12)
[2017-06-13] MEDS ORDERED: Tubing IV Secondary IV ONE (10:56)
--- NOTE | 2017-06-13 11:53 | Critical Care Progress Note ---
Assessment/Plan Assessment/Plan respiratory failure shock possible sepsis leukocytosis protein calorie malnutrition elevated CK possible rhabdo post spine surgery acute encephalopathy ARF with oliguria hypotension improved ?[facility] ICU care for now pressors now off transfuse; discussed with HAYDEN martinez; wbc slightly better IV antibiotics pending cultures respiratory care Ventilatory support- wean and extubate today improved acid base supportive care suction as needed no wean for now renal US Noted oxygen therapy reduced prognosis seems improved monitor platelets all consultants appreciated medications/laboratory data/nursing notes/ICU care reviewed in detail note reviewed and edited care discussed with RN and RT ICU time spent 40 minutes Critical Care - Subjective Interval Events: much improved alert hemodynamics stabilized still with drainage from HV off pressors ROS Limited/Unobtainable: Yes Condition: improving EKG Rhythm: Sinus Rhythm Residuals: minimal Tube Feeding Tolerated: yes I&O: Intake and Output 06/12/17 06/13/17 19:00 07:00 Intake Total 1560.0 ml 2100.0 ml Output Total 485 ml 680 ml Balance 1075.0 ml 1420.0 ml Intake Oral 0 ml IV Total 1480.0 ml 1720.0 ml Tube Feeding 80 ml 380 ml Output Urine Total 385 ml 580 ml Drainage Total 100 ml 100 ml Critical Care - Objective CXR: overall improved ET-Tube: 7.5 ET Position: 22 Last 24 Hour Vital Signs Date Time Temp Pulse Resp B/P Pulse Ox O2 Delivery O2 Flow Rate FiO2 06/13/17 11:22 40 06/13/17 11:00 101 30 134/50 100 Mechanical Ventilator 40 06/13/17 10:00 101 31 136/57 100 Mechanical Ventilator 40 06/13/17 09:00 102 32 122/70 100 Mechanical Ventilator 40 06/13/17 08:49 102 34 40 06/13/17 08:00 126 06/13/17 08:00 40 06/13/17 08:00 98.2 106 27 144/66 100 Mechanical Ventilator 40 06/13/17 07:20 100 41 40 06/13/17 07:00 105 37 135/67 100 Mechanical Ventilator 40 06/13/17 06:00 110 37 150/64 100 Mechanical Ventilator 40 06/13/17 05:00 112 35 140/53 100 Mechanical Ventilator 40 06/13/17 04:43 94 35 40 06/13/17 04:00 40 06/13/17 04:00 98.7 97 35 149/57 100 Mechanical Ventilator 40 06/13/17 04:00 97 06/13/17 03:00 103 36 143/49 99 Mechanical Ventilator 40 06/13/17 02:29 109 38 40 06/13/17 02:00 106 36 143/54 99 Mechanical Ventilator 40 06/13/17 01:00 106 35 142/51 100 Mechanical Ventilator 40 06/13/17 00:38 107 39 40 06/13/17 00:00 103 06/13/17 00:00 40 06/13/17 00:00 98.2 103 36 129/44 100 Mechanical Ventilator 40 06/12/17 23:06 105 34 40 06/12/17 23:00 111 36 145/57 99 Mechanical Ventilator 40 06/12/17 22:00 108 35 133/55 99 Mechanical Ventilator 40 06/12/17 21:00 118 37 136/51 98 Mechanical Ventilator 60 06/12/17 20:54 120 40 40 06/12/17 20:00 40 06/12/17 20:00 98.3 114 33 140/53 100 Mechanical Ventilator 60 06/12/17 20:00 114 06/12/17 19:03 117 35 40 06/12/17 19:00 112 34 143/55 99 Mechanical Ventilator 60 06/12/17 18:00 104 33 141/58 100 Mechanical Ventilator 60 06/12/17 17:00 106 30 139/60 100 Mechanical Ventilator 60 06/12/17 16:43 106 32 40 06/12/17 16:00 98.5 100 26 125/50 100 Mechanical Ventilator 60 06/12/17 16:00 50 06/12/17 16:00 101 06/12/17 15:13 116 33 40 06/12/17 15:00 111 28 135/54 100 Mechanical Ventilator 60 06/12/17 14:00 110 30 132/53 100 Mechanical Ventilator 60 06/12/17 13:17 108 33 40 06/12/17 13:00 105 30 135/68 100 Mechanical Ventilator 60 06/12/17 12:00 98.7 103 26 128/56 100 Mechanical Ventilator 60 06/12/17 12:00 111 06/12/17 11:56 50 Labs: Labs Test 06/10/17 20:03 06/10/17 21:57 06/11/17 00:50 06/11/17 07:21 White Blood Count 18.2 K/UL (4.8-10.8) Red Blood Count 3.32 M/UL (4.20-5.40) Hemoglobin 10.0 G/DL (12.0-16.0) Hematocrit 31.3 % (37.0-47.0) Mean Corpuscular Volume 94 FL (80-99) Mean Corpuscular Hemoglobin 30.2 PG (27.0-31.0) Mean Corpuscular Hemoglobin Concent 32.0 G/DL (32.0-36.0) Red Cell Distribution Width 14.7 % (11.6-14.8) Platelet Count 94 K/UL (150-450) Mean Platelet Volume 7.1 FL (6.5-10.1) Neutrophils (%) (Auto) % (45.0-75.0) Lymphocytes (%) (Auto) % (20.0-45.0) Monocytes (%) (Auto) % (1.0-10.0) Eosinophils (%) (Auto) % (0.0-3.0) Basophils (%) (Auto) % (0.0-2.0) Differential Total Cells Counted 100 Neutrophils % (Manual) 78 % (45-75) Lymphocytes % (Manual) 10 % (20-45) Monocytes % (Manual) 4 % (1-10) Eosinophils % (Manual) 0 % (0-3) Basophils % (Manual) 0 % (0-2) Band Neutrophils 8 % (0-8) Platelet Estimate Decreased Platelet Morphology Normal Hypochromasia 1+ Anisocytosis 1+ Prothrombin Time 13.4 SEC (9.30-11.50) Prothromb Time International Ratio 1.3 (0.9-1.1) Activated Partial Thromboplast Time 25 SEC (23-33) Urine Color Yellow Urine Appearance Clear Urine pH 5 (4.5-8.0) Urine Specific Novelty 1.015 (1.005-1.035) Urine Protein 1+ (NEGATIVE) Urine Glucose (UA) Negative (NEGATIVE) Urine Ketones Negative (NEGATIVE) Urine Occult Blood 3+ (NEGATIVE) Urine Nitrite Negative (NEGATIVE) Urine Bilirubin Negative (NEGATIVE) Urine Urobilinogen Normal MG/DL (0.0-1.0) Urine Leukocyte Esterase 2+ (NEGATIVE) Urine RBC 5-10 /HPF (0 - 2) Urine WBC 2-4 /HPF (0 - 2) Urine Squamous Epithelial Cells Few /LPF (NONE/OCC) Urine Bacteria Few /HPF (NONE) Sodium Level 144 mEQ/L (135-145) Potassium Level 4.0 mEQ/L (3.4-4.9) Chloride Level 114 mEQ/L (98-107) Carbon Dioxide Level 16 mEQ/L (20-30) Anion Gap 14 (5-15) Blood Urea Nitrogen 11 mg/dL (7-23) Creatinine 1.1 mg/dL (0.5-0.9) Estimat Glomerular Filtration Rate mL/min (>60) Glucose Level 197 mg/dL (74-106) Calcium Level 7.0 mg/dL (8.6-10.2) Total Bilirubin 0.6 mg/dL (0.0-1.2) Aspartate Amino Transf (AST/SGOT) 95 U/L (5-40) Alanine Aminotransferase (ALT/SGPT) 32 U/L (3-33) Alkaline Phosphatase 26 U/L (35-104) Total Creatine Kinase 4006 U/L (26-140) 3963 U/L (26-140) Creatine Kinase MB 299.9 ng/mL (< 3.8) 271.4 ng/mL (< 3.8) Creatine Kinase MB Relative Index 7.4 6.8 Troponin I < 0.30 ng/mL (<=0.30) < 0.30 ng/mL (<=0.30) Total Protein 3.6 g/dL (6.6-8.7) Albumin 2.2 g/dL (3.5-5.2) Globulin 1.4 g/dL Albumin/Globulin Ratio 1.5 (1.0-2.7) Arterial Blood pH 6.962 (7.350-7.450) 7.330 (7.350-7.450) Arterial Blood Partial Pressure CO2 50.9 mmHg (35.0-45.0) 25.4 mmHg (35.0-45.0) Arterial Blood Partial Pressure O2 369.1 mmHg (75.0-100.0) 148.0 mmHg (75.0-100.0) Arterial Blood HCO3 11.2 mmol/L (22.0-26.0) 13.3 mmol/L (22.0-26.0) Arterial Blood Oxygen Saturation 99.2 % (92.0-98.0) 98.2 % (92.0-98.0) Arterial Blood Base Excess -19.6 -11.1 Quirino Test Positive Positive Lactic Acid Level 5.80 mmol/L (0.66-2.22) Pro-B-Type Natriuretic Peptide 642 pg/mL (0-450) Test 06/11/17 08:00 06/11/17 16:00 06/11/17 18:45 06/12/17 04:00 White Blood Count 16.0 K/UL (4.8-10.8) 20.1 K/UL (4.8-10.8) Red Blood Count 3.24 M/UL (4.20-5.40) 2.65 M/UL (4.20-5.40) Hemoglobin 9.4 G/DL (12.0-16.0) 8.0 G/DL (12.0-16.0) Hematocrit 29.6 % (37.0-47.0) 24.3 % (37.0-47.0) Mean Corpuscular Volume 92 FL (80-99) 92 FL (80-99) Mean Corpuscular Hemoglobin 29.2 PG (27.0-31.0) 30.0 PG (27.0-31.0) Mean Corpuscular Hemoglobin Concent 31.9 G/DL (32.0-36.0) 32.8 G/DL (32.0-36.0) Red Cell Distribution Width 15.0 % (11.6-14.8) 15.3 % (11.6-14.8) Platelet Count 105 K/UL (150-450) 103 K/UL (150-450) Mean Platelet Volume 6.4 FL (6.5-10.1) 6.2 FL (6.5-10.1) Neutrophils (%) (Auto) 83.8 % (45.0-75.0) % (45.0-75.0) Lymphocytes (%) (Auto) 7.6 % (20.0-45.0) % (20.0-45.0) Monocytes (%) (Auto) 7.8 % (1.0-10.0) % (1.0-10.0) Eosinophils (%) (Auto) 0.0 % (0.0-3.0) % (0.0-3.0) Basophils (%) (Auto) 0.7 % (0.0-2.0) % (0.0-2.0) Sodium Level 146 mEQ/L (135-145) 142 mEQ/L (135-145) 141 mEQ/L (135-145) Potassium Level 4.5 mEQ/L (3.4-4.9) 4.1 mEQ/L (3.4-4.9) 4.0 mEQ/L (3.4-4.9) Chloride Level 117 mEQ/L (98-107) 115 mEQ/L (98-107) 115 mEQ/L (98-107) Carbon Dioxide Level 17 mEQ/L (20-30) 13 mEQ/L (20-30) 15 mEQ/L (20-30) Anion Gap 12 (5-15) 14 (5-15) 11 (5-15) Blood Urea Nitrogen 14 mg/dL (7-23) 19 mg/dL (7-23) 24 mg/dL (7-23) Creatinine 1.4 mg/dL (0.5-0.9) 2.0 mg/dL (0.5-0.9) 2.2 mg/dL (0.5-0.9) Estimat Glomerular Filtration Rate mL/min (>60) mL/min (>60) mL/min (>60) Glucose Level 167 mg/dL (74-106) 247 mg/dL (74-106) 148 mg/dL (74-106) Lactic Acid Level 5.30 mmol/L (0.66-2.22) 3.70 mmol/L (0.66-2.22) 2.00 mmol/L (0.66-2.22) Calcium Level 6.2 mg/dL (8.6-10.2) 6.0 mg/dL (8.6-10.2) 6.1 mg/dL (8.6-10.2) Total Bilirubin 0.3 mg/dL (0.0-1.2) 0.2 mg/dL (0.0-1.2) 0.3 mg/dL (0.0-1.2) Aspartate Amino Transf (AST/SGOT) 123 U/L (5-40) 122 U/L (5-40) 119 U/L (5-40) Alanine Aminotransferase (ALT/SGPT) 45 U/L (3-33) 58 U/L (3-33) 53 U/L (3-33) Alkaline Phosphatase 28 U/L (35-104) 28 U/L (35-104) 43 U/L (35-104) Creatine Kinase MB 241.6 ng/mL (< 3.8) Total Protein 3.8 g/dL (6.6-8.7) 3.6 g/dL (6.6-8.7) 3.7 g/dL (6.6-8.7) Albumin 2.3 g/dL (3.5-5.2) 2.0 g/dL (3.5-5.2) 1.9 g/dL (3.5-5.2) Globulin 1.5 g/dL 1.6 g/dL 1.8 g/dL Albumin/Globulin Ratio 1.5 (1.0-2.7) 1.2 (1.0-2.7) 1.0 (1.0-2.7) Total Creatine Kinase 2945 U/L (26-140) 1916 U/L (26-140) Troponin I 0.51 ng/mL (<=0.30) 0.31 ng/mL (<=0.30) Differential Total Cells Counted 100 Neutrophils % (Manual) 70 % (45-75) Lymphocytes % (Manual) 10 % (20-45) Monocytes % (Manual) 1 % (1-10) Eosinophils % (Manual) 0 % (0-3) Basophils % (Manual) 0 % (0-2) Band Neutrophils 19 % (0-8) Platelet Estimate Decreased Platelet Morphology Normal Poikilocytosis 1+ Anisocytosis 1+ Phosphorus Level 2.4 MG/DL (2.5-4.9) Lactate Dehydrogenase 513 U/L (135-225) Test 06/12/17 06:00 06/12/17 14:25 06/12/17 17:45 06/13/17 06:30 Arterial Blood pH 7.330 (7.350-7.450) Arterial Blood Partial Pressure CO2 29.5 mmHg (35.0-45.0) Arterial Blood Partial Pressure O2 71.6 mmHg (75.0-100.0) Arterial Blood HCO3 15.2 mmol/L (22.0-26.0) Arterial Blood Oxygen Saturation 92.7 % (92.0-98.0) Arterial Blood Base Excess -9.7 Quirino Test Positive Vancomycin Level Trough 15.7 ug/mL (5.0-12.0) Sodium Level 143 mEQ/L (135-145) 141 mEQ/L (135-145) Potassium Level 3.6 mEQ/L (3.4-4.9) 3.0 mEQ/L (3.4-4.9) Chloride Level 114 mEQ/L (98-107) 108 mEQ/L (98-107) Carbon Dioxide Level 18 mEQ/L (20-30) 20 mEQ/L (20-30) Anion Gap 11 (5-15) 13 (5-15) Blood Urea Nitrogen 25 mg/dL (7-23) 21 mg/dL (7-23) Creatinine 2.1 mg/dL (0.5-0.9) 1.7 mg/dL (0.5-0.9) Estimat Glomerular Filtration Rate mL/min (>60) mL/min (>60) Glucose Level 160 mg/dL (74-106) 140 mg/dL (74-106) Calcium Level 5.9 mg/dL (8.6-10.2) 6.2 mg/dL (8.6-10.2) White Blood Count 15.2 K/UL (4.8-10.8) Red Blood Count 1.97 M/UL (4.20-5.40) Hemoglobin 5.9 G/DL (12.0-16.0) Hematocrit 17.6 % (37.0-47.0) Mean Corpuscular Volume 89 FL (80-99) Mean Corpuscular Hemoglobin 29.8 PG (27.0-31.0) Mean Corpuscular Hemoglobin Concent 33.3 G/DL (32.0-36.0) Red Cell Distribution Width 15.0 % (11.6-14.8) Platelet Count 98 K/UL (150-450) Mean Platelet Volume 6.3 FL (6.5-10.1) Neutrophils (%) (Auto) % (45.0-75.0) Lymphocytes (%) (Auto) % (20.0-45.0) Monocytes (%) (Auto) % (1.0-10.0) Eosinophils (%) (Auto) % (0.0-3.0) Basophils (%) (Auto) % (0.0-2.0) Differential Total Cells Counted 100 Neutrophils % (Manual) 79 % (45-75) Lymphocytes % (Manual) 9 % (20-45) Monocytes % (Manual) 5 % (1-10) Eosinophils % (Manual) 0 % (0-3) Basophils % (Manual) 0 % (0-2) Band Neutrophils 7 % (0-8) Nucleated Red Blood Cells 1 /100 WBC Platelet Estimate Decreased Platelet Morphology Normal Hypochromasia 1+ Anisocytosis 1+ Test 06/13/17 07:00 06/13/17 08:56 White Blood Count 14.5 K/UL (4.8-10.8) Red Blood Count 1.99 M/UL (4.20-5.40) Hemoglobin 5.9 G/DL (12.0-16.0) Hematocrit 17.7 % (37.0-47.0) Mean Corpuscular Volume 89 FL (80-99) Mean Corpuscular Hemoglobin 29.6 PG (27.0-31.0) Mean Corpuscular Hemoglobin Concent 33.3 G/DL (32.0-36.0) Red Cell Distribution Width 13.9 % (11.6-14.8) Platelet Count 99 K/UL (150-450) Mean Platelet Volume 6.0 FL (6.5-10.1) Neutrophils (%) (Auto) % (45.0-75.0) Lymphocytes (%) (Auto) % (20.0-45.0) Monocytes (%) (Auto) % (1.0-10.0) Eosinophils (%) (Auto) % (0.0-3.0) Basophils (%) (Auto) % (0.0-2.0) Differential Total Cells Counted 100 Neutrophils % (Manual) 75 % (45-75) Lymphocytes % (Manual) 8 % (20-45) Monocytes % (Manual) 7 % (1-10) Eosinophils % (Manual) 0 % (0-3) Basophils % (Manual) 0 % (0-2) Band Neutrophils 10 % (0-8) Nucleated Red Blood Cells 3 /100 WBC Platelet Estimate Decreased Platelet Morphology Normal Hypochromasia 1+ Anisocytosis 1+ Arterial Blood pH 7.514 (7.350-7.450) Arterial Blood Partial Pressure CO2 25.7 mmHg (35.0-45.0) Arterial Blood Partial Pressure O2 110.5 mmHg (75.0-100.0) Arterial Blood HCO3 20.2 mmol/L (22.0-26.0) Arterial Blood Oxygen Saturation 97.2 % (92.0-98.0) Arterial Blood Base Excess -2.5 Quirino Test Positive Objective: WDWN NAD much more alert stable breath sounds bilaterally without rhonchi or wheeze S1S2 RRR without MRG noted bowel sounds, nontender no HSM no CC; trace edema nonfocal awake OGT HV in place reviewed and edited Micro: Microbiology Date/Time Source Procedure Growth Status 06/11/17 00:45 Blood Blood Culture - Preliminary NO GROWTH AFTER 48 HOURS Resulted 06/11/17 00:45 Blood Blood Culture - Preliminary NO GROWTH AFTER 48 HOURS Resulted 06/11/17 06:15 Nasal Nares MRSA Culture - Final NO METHICILLIN RESISTANT STAPH AUREUS... Complete 06/11/17 06:15 Rectum VRE Culture - Final NO VANCOMYCIN RESISTANT ENTEROCOCCUS ... Complete Accucheck: 167 MARISABEL CISNEROS Jun 13, 2017 11:53
[2017-06-13 12:30] LABS: ABG ALLEN TEST POSITIVE; ABG BASE EXCESS -1.8; ABG PCO2 29.9 mmHg (35.0-45.0)
--- NOTE | 2017-06-13 12:32 | Nephrology Progress Note ---
Assessment/Plan Plan 1) ZEKE--resolving 2) metabolic acidosis--resolved 3) Hypokalemia 3) sepsis 4) anemia 5) thromocytopenia 6) hypocalcemia 7) rhabdomyolysis 8) s/p back Sx 9) NSTEMI Plan transfuse blood change IVF to 1/2NS+20meqkcl replete K, ca,Mg and PO4 Monitor H/H Monitor i/o, electrolytes continue Abx Avoid Nephrotoxic medications in renal dosage Doesn't need urgent HD today Discussed with RN Subjective Subjective still intubated, off pressor, urine output is good. pt is alert,awake Objective Objective Last 24 Hour Vital Signs Date Time Temp Pulse Resp B/P Pulse Ox O2 Delivery O2 Flow Rate FiO2 06/13/17 11:22 40 06/13/17 11:15 102 41 40 06/13/17 11:00 101 30 134/50 100 Mechanical Ventilator 40 06/13/17 10:00 101 31 136/57 100 Mechanical Ventilator 40 06/13/17 09:00 102 32 122/70 100 Mechanical Ventilator 40 06/13/17 08:49 102 34 40 06/13/17 08:00 126 06/13/17 08:00 40 06/13/17 08:00 98.2 106 27 144/66 100 Mechanical Ventilator 40 06/13/17 07:20 100 41 40 06/13/17 07:00 105 37 135/67 100 Mechanical Ventilator 40 06/13/17 06:00 110 37 150/64 100 Mechanical Ventilator 40 06/13/17 05:00 112 35 140/53 100 Mechanical Ventilator 40 06/13/17 04:43 94 35 40 06/13/17 04:00 40 06/13/17 04:00 98.7 97 35 149/57 100 Mechanical Ventilator 40 06/13/17 04:00 97 06/13/17 03:00 103 36 143/49 99 Mechanical Ventilator 40 06/13/17 02:29 109 38 40 06/13/17 02:00 106 36 143/54 99 Mechanical Ventilator 40 06/13/17 01:00 106 35 142/51 100 Mechanical Ventilator 40 06/13/17 00:38 107 39 40 06/13/17 00:00 103 06/13/17 00:00 40 06/13/17 00:00 98.2 103 36 129/44 100 Mechanical Ventilator 40 06/12/17 23:06 105 34 40 06/12/17 23:00 111 36 145/57 99 Mechanical Ventilator 40 06/12/17 22:00 108 35 133/55 99 Mechanical Ventilator 40 06/12/17 21:00 118 37 136/51 98 Mechanical Ventilator 60 06/12/17 20:54 120 40 40 06/12/17 20:00 40 06/12/17 20:00 98.3 114 33 140/53 100 Mechanical Ventilator 60 06/12/17 20:00 114 06/12/17 19:03 117 35 40 06/12/17 19:00 112 34 143/55 99 Mechanical Ventilator 60 06/12/17 18:00 104 33 141/58 100 Mechanical Ventilator 60 06/12/17 17:00 106 30 139/60 100 Mechanical Ventilator 60 06/12/17 16:43 106 32 40 06/12/17 16:00 98.5 100 26 125/50 100 Mechanical Ventilator 60 06/12/17 16:00 50 06/12/17 16:00 101 06/12/17 15:13 116 33 40 06/12/17 15:00 111 28 135/54 100 Mechanical Ventilator 60 06/12/17 14:00 110 30 132/53 100 Mechanical Ventilator 60 06/12/17 13:17 108 33 40 06/12/17 13:00 105 30 135/68 100 Mechanical Ventilator 60 Intake and Output 06/12/17 06/13/17 19:00 07:00 Intake Total 1560.0 ml 2100.0 ml Output Total 485 ml 680 ml Balance 1075.0 ml 1420.0 ml Intake Oral 0 ml IV Total 1480.0 ml 1720.0 ml Tube Feeding 80 ml 380 ml Output Urine Total 385 ml 580 ml Drainage Total 100 ml 100 ml Laboratory Tests 06/12/17 14:25: Vancomycin Level Trough 15.7H 06/12/17 17:45: Sodium Level 143, Potassium Level 3.6, Chloride Level 114H, Carbon Dioxide Level 18L, Anion Gap 11, Blood Urea Nitrogen 25H, Creatinine 2.1H, Estimat Glomerular Filtration Rate , Glucose Level 160H, Calcium Level 5.9*L 06/13/17 06:30: Sodium Level 141, Potassium Level 3.0L, Chloride Level 108H, Carbon Dioxide Level 20, Anion Gap 13, Blood Urea Nitrogen 21, Creatinine 1.7H, Estimat Glomerular Filtration Rate , Glucose Level 140H, Calcium Level 6.2L, White Blood Count 15.2H, Red Blood Count 1.97L, Hemoglobin 5.9*L, Hematocrit 17.6L, Mean Corpuscular Volume 89, Mean Corpuscular Hemoglobin 29.8, Mean Corpuscular Hemoglobin Concent 33.3, Red Cell Distribution Width 15.0H, Platelet Count 98L, Mean Platelet Volume 6.3L, Neutrophils (%) (Auto) , Lymphocytes (%) (Auto) , Monocytes (%) (Auto) , Eosinophils (%) (Auto) , Basophils (%) (Auto) , Differential Total Cells Counted 100, Neutrophils % (Manual) 79H, Lymphocytes % (Manual) 9L, Monocytes % (Manual) 5, Eosinophils % (Manual) 0, Basophils % ( Manual) 0, Band Neutrophils 7, Nucleated Red Blood Cells 1, Platelet Estimate DecreasedL, Platelet Morphology Normal, Hypochromasia 1+, Anisocytosis 1+ 06/13/17 07:00: White Blood Count 14.5H, Red Blood Count 1.99L, Hemoglobin 5.9*L, Hematocrit 17.7L, Mean Corpuscular Volume 89, Mean Corpuscular Hemoglobin 29.6, Mean Corpuscular Hemoglobin Concent 33.3, Red Cell Distribution Width 13.9, Platelet Count 99L, Mean Platelet Volume 6.0L, Neutrophils (%) (Auto) , Lymphocytes (%) ( Auto) , Monocytes (%) (Auto) , Eosinophils (%) (Auto) , Basophils (%) (Auto) , Differential Total Cells Counted 100, Neutrophils % (Manual) 75, Lymphocytes % ( Manual) 8L, Monocytes % (Manual) 7, Eosinophils % (Manual) 0, Basophils % ( Manual) 0, Band Neutrophils 10H, Nucleated Red Blood Cells 3, Platelet Estimate DecreasedL, Platelet Morphology Normal, Hypochromasia 1+, Anisocytosis 1+ 06/13/17 08:56: Arterial Blood pH 7.514H, Arterial Blood Partial Pressure CO2 25.7L, Arterial Blood Partial Pressure O2 110.5H, Arterial Blood HCO3 20.2L, Arterial Blood Oxygen Saturation 97.2, Arterial Blood Base Excess -2.5, Quirino Test Positive 06/13/17 12:15: Arterial Blood pH 7.476H, Arterial Blood Partial Pressure CO2 29.9L, Arterial Blood Partial Pressure O2 101.1H, Arterial Blood HCO3 21.6L, Arterial Blood Oxygen Saturation 97.2, Arterial Blood Base Excess -1.8, Quirino Test Positive Height (Feet): 5 Height (Inches): 8.00 Weight (Pounds): 174 Objective intubated on Vent CTA b/l,no rales, no rhonchi S1,S2,RRR,no M/R/g soft, BS+, drainage from back with blood no edema, Mendoza's cath + JULI TATE Jun 13, 2017 12:32
[2017-06-13] MEDS: 1/2NS w/KCl 20mEq 1000ml 1,000 ML IV SCH ×2 (13:40→23:31)
[2017-06-13] MEDS ORDERED: Calcium Gluconate 10% 2 GM in NS 110 ML IVPB ONE (14:00)
[2017-06-13] MEDS ORDERED: Tubing IV Blood Pump IV ONE (15:12)
--- NOTE | 2017-06-13 15:20 | General Progress Note ---
Assessment/Plan Assessment/Plan 1. Thrombocytopenia potentially secondary to underlying sepsis. 2. Anemia secondary to chronic disease. --> monitor, hgb goal above 7 3. Decreased hemoglobin and hematocrit, rule out gastrointestinal bleed. 4. Potential transfusion reaction. 5. Respiratory Failure --> intubated, on a vent 6. Altered mental status. 7. Sepsis. 8. Leukocytosis. 9. Rhabdomyolysis. 10. Cerebrovascular accident. 11. Acute kidney injury. 12. Discussed with staff. Subjective Date patient seen: Jun 12, 2017 Constitutional: Reports: no symptoms HEENT: Reports: no symptoms Cardiovascular: Reports: no symptoms Respiratory: Reports: no symptoms Gastrointestinal/Abdominal: Reports: no symptoms Genitourinary: Reports: no symptoms Neurologic/Psychiatric: Reports: no symptoms Endocrine: Reports: no symptoms Hematologic/Lymphatic: Reports: no symptoms Allergies: Coded Allergies: No Known Allergies (Unverified , 06/10/17) Subjective obtunded, on a vent Objective Last 24 Hour Vital Signs Date Time Temp Pulse Resp B/P Pulse Ox O2 Delivery O2 Flow Rate FiO2 06/13/17 15:00 93 23 148/76 100 Mechanical Ventilator 40 06/13/17 14:00 103 24 152/66 100 Mechanical Ventilator 40 06/13/17 14:00 Nasal Cannula 2.0 28 06/13/17 13:00 95 36 40 06/13/17 13:00 105 29 156/68 100 Mechanical Ventilator 40 06/13/17 12:00 117 06/13/17 12:00 97.8 101 30 155/64 100 Mechanical Ventilator 40 06/13/17 11:22 40 06/13/17 11:15 102 41 40 06/13/17 11:00 101 30 134/50 100 Mechanical Ventilator 40 06/13/17 10:00 101 31 136/57 100 Mechanical Ventilator 40 06/13/17 09:00 102 32 122/70 100 Mechanical Ventilator 40 06/13/17 08:49 102 34 40 06/13/17 08:00 126 06/13/17 08:00 40 06/13/17 08:00 98.2 106 27 144/66 100 Mechanical Ventilator 40 06/13/17 07:20 100 41 40 06/13/17 07:00 105 37 135/67 100 Mechanical Ventilator 40 06/13/17 06:00 110 37 150/64 100 Mechanical Ventilator 40 06/13/17 05:00 112 35 140/53 100 Mechanical Ventilator 40 06/13/17 04:43 94 35 40 06/13/17 04:00 40 06/13/17 04:00 98.7 97 35 149/57 100 Mechanical Ventilator 40 06/13/17 04:00 97 06/13/17 03:00 103 36 143/49 99 Mechanical Ventilator 40 06/13/17 02:29 109 38 40 06/13/17 02:00 106 36 143/54 99 Mechanical Ventilator 40 06/13/17 01:00 106 35 142/51 100 Mechanical Ventilator 40 06/13/17 00:38 107 39 40 06/13/17 00:00 103 06/13/17 00:00 40 06/13/17 00:00 98.2 103 36 129/44 100 Mechanical Ventilator 40 06/12/17 23:06 105 34 40 06/12/17 23:00 111 36 145/57 99 Mechanical Ventilator 40 06/12/17 22:00 108 35 133/55 99 Mechanical Ventilator 40 06/12/17 21:00 118 37 136/51 98 Mechanical Ventilator 60 06/12/17 20:54 120 40 40 06/12/17 20:00 40 06/12/17 20:00 98.3 114 33 140/53 100 Mechanical Ventilator 60 06/12/17 20:00 114 06/12/17 19:03 117 35 40 06/12/17 19:00 112 34 143/55 99 Mechanical Ventilator 60 06/12/17 18:00 104 33 141/58 100 Mechanical Ventilator 60 06/12/17 17:00 106 30 139/60 100 Mechanical Ventilator 60 06/12/17 16:43 106 32 40 06/12/17 16:00 98.5 100 26 125/50 100 Mechanical Ventilator 60 06/12/17 16:00 50 06/12/17 16:00 101 Intake and Output 06/12/17 06/13/17 19:00 07:00 Intake Total 1560.0 ml 2100.0 ml Output Total 485 ml 680 ml Balance 1075.0 ml 1420.0 ml Intake Oral 0 ml IV Total 1480.0 ml 1720.0 ml Tube Feeding 80 ml 380 ml Output Urine Total 385 ml 580 ml Drainage Total 100 ml 100 ml Laboratory Tests 06/12/17 17:45: Sodium Level 143, Potassium Level 3.6, Chloride Level 114H, Carbon Dioxide Level 18L, Anion Gap 11, Blood Urea Nitrogen 25H, Creatinine 2.1H, Estimat Glomerular Filtration Rate , Glucose Level 160H, Calcium Level 5.9*L 06/13/17 06:30: Sodium Level 141, Potassium Level 3.0L, Chloride Level 108H, Carbon Dioxide Level 20, Anion Gap 13, Blood Urea Nitrogen 21, Creatinine 1.7H, Estimat Glomerular Filtration Rate , Glucose Level 140H, Calcium Level 6.2L, White Blood Count 15.2H, Red Blood Count 1.97L, Hemoglobin 5.9*L, Hematocrit 17.6L, Mean Corpuscular Volume 89, Mean Corpuscular Hemoglobin 29.8, Mean Corpuscular Hemoglobin Concent 33.3, Red Cell Distribution Width 15.0H, Platelet Count 98L, Mean Platelet Volume 6.3L, Neutrophils (%) (Auto) , Lymphocytes (%) (Auto) , Monocytes (%) (Auto) , Eosinophils (%) (Auto) , Basophils (%) (Auto) , Differential Total Cells Counted 100, Neutrophils % (Manual) 79H, Lymphocytes % (Manual) 9L, Monocytes % (Manual) 5, Eosinophils % (Manual) 0, Basophils % ( Manual) 0, Band Neutrophils 7, Nucleated Red Blood Cells 1, Platelet Estimate DecreasedL, Platelet Morphology Normal, Hypochromasia 1+, Anisocytosis 1+, Phosphorus Level 1.8L, Magnesium Level 1.4L 06/13/17 07:00: White Blood Count 14.5H, Red Blood Count 1.99L, Hemoglobin 5.9*L, Hematocrit 17.7L, Mean Corpuscular Volume 89, Mean Corpuscular Hemoglobin 29.6, Mean Corpuscular Hemoglobin Concent 33.3, Red Cell Distribution Width 13.9, Platelet Count 99L, Mean Platelet Volume 6.0L, Neutrophils (%) (Auto) , Lymphocytes (%) ( Auto) , Monocytes (%) (Auto) , Eosinophils (%) (Auto) , Basophils (%) (Auto) , Differential Total Cells Counted 100, Neutrophils % (Manual) 75, Lymphocytes % ( Manual) 8L, Monocytes % (Manual) 7, Eosinophils % (Manual) 0, Basophils % ( Manual) 0, Band Neutrophils 10H, Nucleated Red Blood Cells 3, Platelet Estimate DecreasedL, Platelet Morphology Normal, Hypochromasia 1+, Anisocytosis 1+ 06/13/17 08:56: Arterial Blood pH 7.514H, Arterial Blood Partial Pressure CO2 25.7L, Arterial Blood Partial Pressure O2 110.5H, Arterial Blood HCO3 20.2L, Arterial Blood Oxygen Saturation 97.2, Arterial Blood Base Excess -2.5, Quirino Test Positive 06/13/17 12:15: Arterial Blood pH 7.476H, Arterial Blood Partial Pressure CO2 29.9L, Arterial Blood Partial Pressure O2 101.1H, Arterial Blood HCO3 21.6L, Arterial Blood Oxygen Saturation 97.2, Arterial Blood Base Excess -1.8, Quirino Test Positive Height (Feet): 5 Height (Inches): 8.00 Weight (Pounds): 174 General Appearance: no apparent distress EENT: PERRL/EOMI Neck: normal alignment Cardiovascular: normal rate Respiratory/Chest: chest wall non-tender Edema: no edema noted Pedal (L), no edema noted Pedal (R) Edema: mild edema Skin: warm/dry Franco De La Rosa Jun 13, 2017 15:20
--- NOTE | 2017-06-13 15:24 | General Progress Note ---
Assessment/Plan Assessment/Plan 1. Thrombocytopenia potentially secondary to underlying sepsis. 2. Anemia secondary to bleed, drainage from surgical site wound --> monitor, hgb goal above 7 --> s/p blood transfusion, consent from 3. Decreased hemoglobin and hematocrit, rule out gastrointestinal bleed. 4. Potential transfusion reaction. --> not noted in review of record 5. Respiratory Failure --> intubated, on a vent --> now extubated 6. Altered mental status. 7. Sepsis. 8. Leukocytosis. 9. Rhabdomyolysis. 10. Cerebrovascular accident. 11. Acute kidney injury. 12. Status post spine surgery Subjective Constitutional: Reports: no symptoms HEENT: Reports: no symptoms Cardiovascular: Reports: no symptoms Respiratory: Reports: no symptoms Gastrointestinal/Abdominal: Reports: no symptoms Genitourinary: Reports: no symptoms Neurologic/Psychiatric: Reports: no symptoms Endocrine: Reports: no symptoms Hematologic/Lymphatic: Reports: anemia Allergies: Coded Allergies: No Known Allergies (Unverified , 06/10/17) Subjective anemic, s/p blood transfusion Objective Last 24 Hour Vital Signs Date Time Temp Pulse Resp B/P Pulse Ox O2 Delivery O2 Flow Rate FiO2 06/13/17 15:00 93 23 148/76 100 Mechanical Ventilator 40 06/13/17 14:00 103 24 152/66 100 Mechanical Ventilator 40 06/13/17 14:00 Nasal Cannula 2.0 28 06/13/17 13:00 95 36 40 06/13/17 13:00 105 29 156/68 100 Mechanical Ventilator 40 06/13/17 12:00 117 06/13/17 12:00 97.8 101 30 155/64 100 Mechanical Ventilator 40 06/13/17 11:22 40 06/13/17 11:15 102 41 40 06/13/17 11:00 101 30 134/50 100 Mechanical Ventilator 40 06/13/17 10:00 101 31 136/57 100 Mechanical Ventilator 40 06/13/17 09:00 102 32 122/70 100 Mechanical Ventilator 40 06/13/17 08:49 102 34 40 06/13/17 08:00 126 06/13/17 08:00 40 06/13/17 08:00 98.2 106 27 144/66 100 Mechanical Ventilator 40 06/13/17 07:20 100 41 40 06/13/17 07:00 105 37 135/67 100 Mechanical Ventilator 40 06/13/17 06:00 110 37 150/64 100 Mechanical Ventilator 40 06/13/17 05:00 112 35 140/53 100 Mechanical Ventilator 40 06/13/17 04:43 94 35 40 06/13/17 04:00 40 06/13/17 04:00 98.7 97 35 149/57 100 Mechanical Ventilator 40 06/13/17 04:00 97 06/13/17 03:00 103 36 143/49 99 Mechanical Ventilator 40 06/13/17 02:29 109 38 40 06/13/17 02:00 106 36 143/54 99 Mechanical Ventilator 40 06/13/17 01:00 106 35 142/51 100 Mechanical Ventilator 40 06/13/17 00:38 107 39 40 06/13/17 00:00 103 06/13/17 00:00 40 06/13/17 00:00 98.2 103 36 129/44 100 Mechanical Ventilator 40 06/12/17 23:06 105 34 40 06/12/17 23:00 111 36 145/57 99 Mechanical Ventilator 40 06/12/17 22:00 108 35 133/55 99 Mechanical Ventilator 40 06/12/17 21:00 118 37 136/51 98 Mechanical Ventilator 60 06/12/17 20:54 120 40 40 06/12/17 20:00 40 06/12/17 20:00 98.3 114 33 140/53 100 Mechanical Ventilator 60 06/12/17 20:00 114 06/12/17 19:03 117 35 40 06/12/17 19:00 112 34 143/55 99 Mechanical Ventilator 60 06/12/17 18:00 104 33 141/58 100 Mechanical Ventilator 60 06/12/17 17:00 106 30 139/60 100 Mechanical Ventilator 60 06/12/17 16:43 106 32 40 06/12/17 16:00 98.5 100 26 125/50 100 Mechanical Ventilator 60 06/12/17 16:00 50 06/12/17 16:00 101 Intake and Output 06/12/17 06/13/17 19:00 07:00 Intake Total 1560.0 ml 2100.0 ml Output Total 485 ml 680 ml Balance 1075.0 ml 1420.0 ml Intake Oral 0 ml IV Total 1480.0 ml 1720.0 ml Tube Feeding 80 ml 380 ml Output Urine Total 385 ml 580 ml Drainage Total 100 ml 100 ml Laboratory Tests 7/15/17 17:45: Sodium Level 143, Potassium Level 3.6, Chloride Level 114H, Carbon Dioxide Level 18L, Anion Gap 11, Blood Urea Nitrogen 25H, Creatinine 2.1H, Estimat Glomerular Filtration Rate , Glucose Level 160H, Calcium Level 5.9*L 06/13/17 06:30: Sodium Level 141, Potassium Level 3.0L, Chloride Level 108H, Carbon Dioxide Level 20, Anion Gap 13, Blood Urea Nitrogen 21, Creatinine 1.7H, Estimat Glomerular Filtration Rate , Glucose Level 140H, Calcium Level 6.2L, White Blood Count 15.2H, Red Blood Count 1.97L, Hemoglobin 5.9*L, Hematocrit 17.6L, Mean Corpuscular Volume 89, Mean Corpuscular Hemoglobin 29.8, Mean Corpuscular Hemoglobin Concent 33.3, Red Cell Distribution Width 15.0H, Platelet Count 98L, Mean Platelet Volume 6.3L, Neutrophils (%) (Auto) , Lymphocytes (%) (Auto) , Monocytes (%) (Auto) , Eosinophils (%) (Auto) , Basophils (%) (Auto) , Differential Total Cells Counted 100, Neutrophils % (Manual) 79H, Lymphocytes % (Manual) 9L, Monocytes % (Manual) 5, Eosinophils % (Manual) 0, Basophils % ( Manual) 0, Band Neutrophils 7, Nucleated Red Blood Cells 1, Platelet Estimate DecreasedL, Platelet Morphology Normal, Hypochromasia 1+, Anisocytosis 1+, Phosphorus Level 1.8L, Magnesium Level 1.4L 06/13/17 07:00: White Blood Count 14.5H, Red Blood Count 1.99L, Hemoglobin 5.9*L, Hematocrit 17.7L, Mean Corpuscular Volume 89, Mean Corpuscular Hemoglobin 29.6, Mean Corpuscular Hemoglobin Concent 33.3, Red Cell Distribution Width 13.9, Platelet Count 99L, Mean Platelet Volume 6.0L, Neutrophils (%) (Auto) , Lymphocytes (%) ( Auto) , Monocytes (%) (Auto) , Eosinophils (%) (Auto) , Basophils (%) (Auto) , Differential Total Cells Counted 100, Neutrophils % (Manual) 75, Lymphocytes % ( Manual) 8L, Monocytes % (Manual) 7, Eosinophils % (Manual) 0, Basophils % ( Manual) 0, Band Neutrophils 10H, Nucleated Red Blood Cells 3, Platelet Estimate DecreasedL, Platelet Morphology Normal, Hypochromasia 1+, Anisocytosis 1+ 06/13/17 08:56: Arterial Blood pH 7.514H, Arterial Blood Partial Pressure CO2 25.7L, Arterial Blood Partial Pressure O2 110.5H, Arterial Blood HCO3 20.2L, Arterial Blood Oxygen Saturation 97.2, Arterial Blood Base Excess -2.5, Quirino Test Positive 06/13/17 12:15: Arterial Blood pH 7.476H, Arterial Blood Partial Pressure CO2 29.9L, Arterial Blood Partial Pressure O2 101.1H, Arterial Blood HCO3 21.6L, Arterial Blood Oxygen Saturation 97.2, Arterial Blood Base Excess -1.8, Quirino Test Positive Height (Feet): 5 Height (Inches): 8.00 Weight (Pounds): 174 General Appearance: no apparent distress EENT: PERRL/EOMI Neck: normal alignment Cardiovascular: normal peripheral pulses Respiratory/Chest: chest wall non-tender Abdomen: non tender Edema: no edema noted Pedal (L), no edema noted Pedal (R) Skin: warm/dry Franco De La Rosa Jun 13, 2017 15:24
[2017-06-13] MEDS ORDERED: Potassium Phosphate 20 MM in NS 275 ML IV ONE (17:30)
--- NOTE | 2017-06-13 19:29 | General Progress Note ---
Assessment/Plan Problem List: (1) Pneumonia ICD Codes: J18.9 - Pneumonia, unspecified organism SNOMED: 020979649 Qualifiers: Qualified Codes: J18.9 - Pneumonia, unspecified organism (2) Sepsis ICD Codes: A41.9 - Sepsis, unspecified organism SNOMED: 51920176 Qualifiers: Qualified Codes: A41.9 - Sepsis, unspecified organism (3) ZEKE (acute kidney injury) ICD Codes: N17.9 - Acute kidney failure, unspecified SNOMED: 43002569 (4) Altered level of consciousness ICD Codes: R40.4 - Transient alteration of awareness SNOMED: 0484787 (5) respiratory failure, on ventilator (6) septic shock Status: stable, progressing Assessment/Plan ivf monitor fluid status transfuse abx follow up cultures dvt/stress ulcer prophylaxis remains critical and guarded d/w Subjective Time patient seen: 11:00 ROS Limited/Unobtainable: No Constitutional: Reports: malaise, weakness HEENT: Reports: no symptoms Cardiovascular: Reports: no symptoms Respiratory: Reports: SOB at rest, sputum Gastrointestinal/Abdominal: Reports: no symptoms Genitourinary: Reports: no symptoms Neurologic/Psychiatric: Reports: no symptoms Endocrine: Reports: no symptoms Hematologic/Lymphatic: Reports: anemia Allergies: Coded Allergies: No Known Allergies (Unverified , 06/10/17) All Systems: reviewed and negative except above Subjective improving. off levophed. more alert. +edema. remains orally intubated. awake and follows commands, decreased h/h noted. getting transfusion. +bleeding into hemovac. Objective Last 24 Hour Vital Signs Date Time Temp Pulse Resp B/P Pulse Ox O2 Delivery O2 Flow Rate FiO2 06/13/17 19:00 97 29 154/64 97 Nasal Cannula 3.0 06/13/17 18:49 Nasal Cannula 5.0 06/13/17 18:48 97 Nasal Cannula 5.0 06/13/17 18:00 97 30 136/59 97 Nasal Cannula 3.0 06/13/17 17:00 93 23 148/67 100 Nasal Cannula 3.0 06/13/17 16:00 98.1 92 30 155/64 96 Nasal Cannula 3.0 06/13/17 16:00 99 06/13/17 15:00 93 23 148/76 100 Mechanical Ventilator 40 06/13/17 14:00 103 24 152/66 100 Mechanical Ventilator 40 06/13/17 14:00 Nasal Cannula 2.0 28 06/13/17 13:00 95 36 40 06/13/17 13:00 105 29 156/68 100 Mechanical Ventilator 40 06/13/17 12:00 117 06/13/17 12:00 40 06/13/17 12:00 97.8 101 30 155/64 100 Mechanical Ventilator 40 06/13/17 11:22 40 06/13/17 11:15 102 41 40 06/13/17 11:00 101 30 134/50 100 Mechanical Ventilator 40 06/13/17 10:00 101 31 136/57 100 Mechanical Ventilator 40 06/13/17 09:00 102 32 122/70 100 Mechanical Ventilator 40 06/13/17 08:49 102 34 40 06/13/17 08:00 126 06/13/17 08:00 40 06/13/17 08:00 98.2 106 27 144/66 100 Mechanical Ventilator 40 06/13/17 07:20 100 41 40 06/13/17 07:00 105 37 135/67 100 Mechanical Ventilator 40 06/13/17 06:00 110 37 150/64 100 Mechanical Ventilator 40 06/13/17 05:00 112 35 140/53 100 Mechanical Ventilator 40 06/13/17 04:43 94 35 40 06/13/17 04:00 40 06/13/17 04:00 98.7 97 35 149/57 100 Mechanical Ventilator 40 06/13/17 04:00 97 06/13/17 03:00 103 36 143/49 99 Mechanical Ventilator 40 06/13/17 02:29 109 38 40 06/13/17 02:00 106 36 143/54 99 Mechanical Ventilator 40 06/13/17 01:00 106 35 142/51 100 Mechanical Ventilator 40 06/13/17 00:38 107 39 40 06/13/17 00:00 103 06/13/17 00:00 40 06/13/17 00:00 98.2 103 36 129/44 100 Mechanical Ventilator 40 06/12/17 23:06 105 34 40 06/12/17 23:00 111 36 145/57 99 Mechanical Ventilator 40 06/12/17 22:00 108 35 133/55 99 Mechanical Ventilator 40 06/12/17 21:00 118 37 136/51 98 Mechanical Ventilator 60 06/12/17 20:54 120 40 40 06/12/17 20:00 40 06/12/17 20:00 98.3 114 33 140/53 100 Mechanical Ventilator 60 06/12/17 20:00 114 Intake and Output 06/12/17 06/13/17 19:00 07:00 Intake Total 1560.0 ml 2100.0 ml Output Total 485 ml 680 ml Balance 1075.0 ml 1420.0 ml Intake Oral 0 ml IV Total 1480.0 ml 1720.0 ml Tube Feeding 80 ml 380 ml Output Urine Total 385 ml 580 ml Drainage Total 100 ml 100 ml Laboratory Tests 06/13/17 06:30: White Blood Count 15.2H, Red Blood Count 1.97L, Hemoglobin 5.9*L, Hematocrit 17.6L, Mean Corpuscular Volume 89, Mean Corpuscular Hemoglobin 29.8, Mean Corpuscular Hemoglobin Concent 33.3, Red Cell Distribution Width 15.0H, Platelet Count 98L, Mean Platelet Volume 6.3L, Neutrophils (%) (Auto) , Lymphocytes (%) (Auto) , Monocytes (%) (Auto) , Eosinophils (%) (Auto) , Basophils (%) (Auto) , Differential Total Cells Counted 100, Neutrophils % ( Manual) 79H, Lymphocytes % (Manual) 9L, Monocytes % (Manual) 5, Eosinophils % ( Manual) 0, Basophils % (Manual) 0, Band Neutrophils 7, Nucleated Red Blood Cells 1, Platelet Estimate DecreasedL, Platelet Morphology Normal, Hypochromasia 1+, Anisocytosis 1+, Sodium Level 141, Potassium Level 3.0L, Chloride Level 108H, Carbon Dioxide Level 20, Anion Gap 13, Blood Urea Nitrogen 21, Creatinine 1.7H, Estimat Glomerular Filtration Rate , Glucose Level 140H, Calcium Level 6.2L, Phosphorus Level 1.8L, Magnesium Level 1.4L 06/13/17 07:00: White Blood Count 14.5H, Red Blood Count 1.99L, Hemoglobin 5.9*L, Hematocrit 17.7L, Mean Corpuscular Volume 89, Mean Corpuscular Hemoglobin 29.6, Mean Corpuscular Hemoglobin Concent 33.3, Red Cell Distribution Width 13.9, Platelet Count 99L, Mean Platelet Volume 6.0L, Neutrophils (%) (Auto) , Lymphocytes (%) ( Auto) , Monocytes (%) (Auto) , Eosinophils (%) (Auto) , Basophils (%) (Auto) , Differential Total Cells Counted 100, Neutrophils % (Manual) 75, Lymphocytes % ( Manual) 8L, Monocytes % (Manual) 7, Eosinophils % (Manual) 0, Basophils % ( Manual) 0, Band Neutrophils 10H, Nucleated Red Blood Cells 3, Platelet Estimate DecreasedL, Platelet Morphology Normal, Hypochromasia 1+, Anisocytosis 1+ 06/13/17 08:56: Arterial Blood pH 7.514H, Arterial Blood Partial Pressure CO2 25.7L, Arterial Blood Partial Pressure O2 110.5H, Arterial Blood HCO3 20.2L, Arterial Blood Oxygen Saturation 97.2, Arterial Blood Base Excess -2.5, Quirino Test Positive 06/13/17 12:15: Arterial Blood pH 7.476H, Arterial Blood Partial Pressure CO2 29.9L, Arterial Blood Partial Pressure O2 101.1H, Arterial Blood HCO3 21.6L, Arterial Blood Oxygen Saturation 97.2, Arterial Blood Base Excess -1.8, Quirino Test Positive Height (Feet): 5 Height (Inches): 8.00 Weight (Pounds): 174 Objective General Appearance: WD/WN, alert. follows commands Neck: supple Cardiovascular: regular rhythm Respiratory/Chest: rhonchi - bilaterally Abdomen: normal bowel sounds, non tender, soft, no organomegaly Edema: mild edema Neurologic: responsive, disoriented Skin: normal pigmentation JAMES PARKER Jun 13, 2017 19:29
[2017-06-13 20:26] LABS: MEAN CORPUSCULAR HEMOGLOBIN 31.8 PG (27.0-31.0); MEAN CORPUSCULAR HGB CONC 36.2 G/DL (32.0-36.0); MEAN CORPUSCULAR VOLUME 88 FL (80-99); MEAN PLATELET VOLUME 7.7 FL (6.5-10.1); PLATELET COUNT 93 K/UL (150-450); RED BLOOD COUNT 3.05 M/UL (4.20-5.40); RED CELL DISTRIBUTION WIDTH 13.4 % (11.6-14.8); WHITE BLOOD COUNT 16.6 K/UL (4.8-10.8)
[2017-06-13 20:29] LABS: BASOPHILS % (AUTO) 0.6 % (0.0-2.0); EOSINOPHILS % (AUTO) 0.3 % (0.0-3.0); LYMPHOCYTES % (AUTO) 6.2 % (20.0-45.0); MONOCYTES % (AUTO) 5.1 % (1.0-10.0); NEUTROPHILS % (AUTO) 87.8 % (45.0-75.0)
[2017-06-13] MEDS: Dyna-Hex 2% Top Sol 8oz TOPIC SCH (20:32)
[2017-06-14] VITALS (24 sets, daily range): BP systolic 112–156; BP diastolic 25–87
--- NOTE | 2017-06-14 05:00 | Progress Note ---
DATE: 06/13/2017 CARDIOLOGY PROGRESS NOTE SUBJECTIVE: Condition remains critical. Prognosis remains guarded. The patient is more alert. She is no longer on pressors. She remains orally intubated. Monitored rhythm, atrial fibrillation. She is status post packed red blood cell transfusion. OBJECTIVE: VITAL SIGNS: Blood pressure 154/64, pulse 97, respiratory rate 29, and afebrile. LUNGS: Coarse breath sounds. Scattered rhonchi. HEART: Irregularly irregular rhythm. Normal S1 and S2. ABDOMEN: Soft. EXTREMITIES: A 1+ dependent edema. LABORATORY DATA: White count 15.2 and hemoglobin 5.9. BUN 21, creatinine 1.7, magnesium 1.4, and potassium 3. IMPRESSION: 1. Severe anemia. 2. Rhabdomyolysis. 3. Recovered sepsis with shock. 4. Paroxysmal atrial fibrillation with rapid ventricular response. 5. Respiratory failure. 6. Status post spine surgery. 7. Severe protein-calorie malnutrition. 8. Acute renal failure. PLAN: 1. Transfuse to hemoglobin above 8 grams. 2. Remain off pressors. 3. Volume support. 4. Antimicrobials. 5. Replace potassium. 6. IV magnesium. 7. Now off amiodarone. Praful Stewatr M.D. DR: ARUNA JOB#: [id number] CC:
[2017-06-14 05:24] LABS: MEAN CORPUSCULAR HEMOGLOBIN 30.9 PG (27.0-31.0); MEAN CORPUSCULAR HGB CONC 34.9 G/DL (32.0-36.0); MEAN CORPUSCULAR VOLUME 89 FL (80-99); MEAN PLATELET VOLUME 5.9 FL (6.5-10.1); PLATELET COUNT 81 K/UL (150-450); RED BLOOD COUNT 2.98 M/UL (4.20-5.40); RED CELL DISTRIBUTION WIDTH 13.6 % (11.6-14.8); WHITE BLOOD COUNT 15.6 K/UL (4.8-10.8)
[2017-06-14] MEDS: Piperacillin/Tazobactam 3.375 GM in D5W 110 ML IVPB SCH ×3 (05:34→22:14)
[2017-06-14 06:10] LABS: MAGNESIUM 1.9 mg/dL (1.7-2.5); PHOSPHORUS 2.3 mg/dL (2.5-4.8)
[2017-06-14 06:19] LABS: ALANINE AMINOTRANSFERASE 36 U/L (3-33); ALBUMIN/GLOBULIN RATIO 0.7 (1.0-2.7); ANION GAP 16 (5-15); ASPARTATE AMINO TRANSFERASE 61 U/L (5-40); CALCIUM 6.1 mg/dL (8.6-10.2); CARBON DIOXIDE 20 mEQ/L (20-30); CHLORIDE 99 mEQ/L (98-107); CREATININE 1.1 mg/dL (0.5-0.9); HEMOLYSIS 42; POTASSIUM 3.6 mEQ/L (3.4-4.9); SODIUM 135 mEQ/L (135-145); TOTAL PROTEIN 4.1 g/dL (6.6-8.7)
--- NOTE | 2017-06-14 06:59 | Infectious Diseases Prog Note ---
Assessment/Plan Assessment/Plan A; Sepsis/ SIRS Postprocedural respiratory failure Severe anemia Acute renal failure improving Hypokalemia P; continue Zosyn & Vancomycin if remains stable discontinue antibiotics soon Subjective ROS Limited/Unobtainable: Yes Constitutional: Reports: fatigue Respiratory: Reports: other - extubated yesterday Allergies: Coded Allergies: No Known Allergies (Unverified , 06/10/17) Objective Vital Signs Last 24 Hour Vital Signs Date Time Temp Pulse Resp B/P Pulse Ox O2 Delivery O2 Flow Rate FiO2 06/14/17 06:00 83 30 149/77 100 Nasal Cannula 3.0 06/14/17 05:00 95 33 148/76 99 Nasal Cannula 3.0 06/14/17 04:00 86 06/14/17 04:00 98.7 86 32 150/74 100 Nasal Cannula 3.0 06/14/17 03:00 84 31 148/70 99 Nasal Cannula 3.0 06/14/17 02:00 88 30 153/69 99 Nasal Cannula 3.0 06/14/17 01:00 90 31 145/79 99 Nasal Cannula 3.0 06/14/17 00:00 98.2 91 34 152/65 99 Nasal Cannula 3.0 06/14/17 00:00 91 06/13/17 23:00 90 26 143/77 99 Nasal Cannula 3.0 06/13/17 22:00 90 34 141/81 99 Nasal Cannula 3.0 06/13/17 21:00 92 36 152/69 98 Nasal Cannula 3.0 06/13/17 20:00 104 06/13/17 20:00 98.6 104 37 149/72 98 Nasal Cannula 3.0 06/13/17 19:00 97 29 154/64 97 Nasal Cannula 3.0 06/13/17 18:49 Nasal Cannula 5.0 06/13/17 18:48 97 Nasal Cannula 5.0 06/13/17 18:00 97 30 136/59 97 Nasal Cannula 3.0 06/13/17 17:00 93 23 148/67 100 Nasal Cannula 3.0 06/13/17 16:00 98.1 92 30 155/64 96 Nasal Cannula 3.0 06/13/17 16:00 99 06/13/17 15:00 93 23 148/76 100 Mechanical Ventilator 40 06/13/17 14:00 103 24 152/66 100 Mechanical Ventilator 40 06/13/17 14:00 Nasal Cannula 2.0 28 06/13/17 13:00 95 36 40 06/13/17 13:00 105 29 156/68 100 Mechanical Ventilator 40 06/13/17 12:00 117 06/13/17 12:00 40 06/13/17 12:00 97.8 101 30 155/64 100 Mechanical Ventilator 40 06/13/17 11:22 40 06/13/17 11:15 102 41 40 06/13/17 11:00 101 30 134/50 100 Mechanical Ventilator 40 06/13/17 10:00 101 31 136/57 100 Mechanical Ventilator 40 06/13/17 09:00 102 32 122/70 100 Mechanical Ventilator 40 06/13/17 08:49 102 34 40 06/13/17 08:00 126 06/13/17 08:00 40 06/13/17 08:00 98.2 106 27 144/66 100 Mechanical Ventilator 40 06/13/17 07:20 100 41 40 06/13/17 07:00 105 37 135/67 100 Mechanical Ventilator 40 Height (Feet): 5 Height (Inches): 8.00 Weight (Pounds): 172 General Appearance: no acute distress HEENT: mucous membranes moist Respiratory/Chest: lungs clear Cardiovascular: normal rate Abdomen: soft, non tender Extremities: no edema Neurologic/Psychiatric: alert, responsive Laboratory Tests Test 06/13/17 07:00 06/13/17 08:56 06/13/17 12:15 06/13/17 20:00 White Blood Count 14.5 K/UL (4.8-10.8) H 16.6 K/UL (4.8-10.8) H Red Blood Count 1.99 M/UL (4.20-5.40) L 3.05 M/UL (4.20-5.40) L Hemoglobin 5.9 G/DL (12.0-16.0) *L 9.7 G/DL (12.0-16.0) #L Hematocrit 17.7 % (37.0-47.0) L 26.8 % (37.0-47.0) #L Mean Corpuscular Volume 89 FL (80-99) 88 FL (80-99) Mean Corpuscular Hemoglobin 29.6 PG (27.0-31.0) 31.8 PG (27.0-31.0) H Mean Corpuscular Hemoglobin Concent 33.3 G/DL (32.0-36.0) 36.2 G/DL (32.0-36.0) H Red Cell Distribution Width 13.9 % (11.6-14.8) 13.4 % (11.6-14.8) Platelet Count 99 K/UL (150-450) L 93 K/UL (150-450) L Mean Platelet Volume 6.0 FL (6.5-10.1) L 7.7 FL (6.5-10.1) Neutrophils (%) (Auto) % (45.0-75.0) 87.8 % (45.0-75.0) H Lymphocytes (%) (Auto) % (20.0-45.0) 6.2 % (20.0-45.0) L Monocytes (%) (Auto) % (1.0-10.0) 5.1 % (1.0-10.0) Eosinophils (%) (Auto) % (0.0-3.0) 0.3 % (0.0-3.0) Basophils (%) (Auto) % (0.0-2.0) 0.6 % (0.0-2.0) Differential Total Cells Counted 100 Neutrophils % (Manual) 75 % (45-75) Lymphocytes % (Manual) 8 % (20-45) L Monocytes % (Manual) 7 % (1-10) Eosinophils % (Manual) 0 % (0-3) Basophils % (Manual) 0 % (0-2) Band Neutrophils 10 % (0-8) H Nucleated Red Blood Cells 3 /100 WBC Platelet Estimate Decreased L Platelet Morphology Normal Hypochromasia 1+ Anisocytosis 1+ Arterial Blood pH 7.514 (7.350-7.450) 7.476 (7.350-7.450) Arterial Blood Partial Pressure CO2 25.7 mmHg (35.0-45.0) L 29.9 mmHg (35.0-45.0) L Arterial Blood Partial Pressure O2 110.5 mmHg (75.0-100.0) H 101.1 mmHg (75.0-100.0) H Arterial Blood HCO3 20.2 mmol/L (22.0-26.0) L 21.6 mmol/L (22.0-26.0) L Arterial Blood Oxygen Saturation 97.2 % (92.0-98.0) 97.2 % (92.0-98.0) Arterial Blood Base Excess -2.5 -1.8 Quirino Test Positive Positive Test 06/14/17 05:00 White Blood Count 15.6 K/UL (4.8-10.8) H Red Blood Count 2.98 M/UL (4.20-5.40) L Hemoglobin 9.2 G/DL (12.0-16.0) L Hematocrit 26.5 % (37.0-47.0) L Mean Corpuscular Volume 89 FL (80-99) Mean Corpuscular Hemoglobin 30.9 PG (27.0-31.0) Mean Corpuscular Hemoglobin Concent 34.9 G/DL (32.0-36.0) Red Cell Distribution Width 13.6 % (11.6-14.8) Platelet Count 81 K/UL (150-450) L Mean Platelet Volume 5.9 FL (6.5-10.1) L Neutrophils (%) (Auto) % (45.0-75.0) Lymphocytes (%) (Auto) % (20.0-45.0) Monocytes (%) (Auto) % (1.0-10.0) Eosinophils (%) (Auto) % (0.0-3.0) Basophils (%) (Auto) % (0.0-2.0) Neutrophils % (Manual) Pending Lymphocytes % (Manual) Pending Platelet Estimate Pending Platelet Morphology Pending Sodium Level 135 mEQ/L (135-145) Potassium Level 3.6 mEQ/L (3.4-4.9) Chloride Level 99 mEQ/L (98-107) Carbon Dioxide Level 20 mEQ/L (20-30) Anion Gap 16 (5-15) H Blood Urea Nitrogen 15 mg/dL (7-23) Creatinine 1.1 mg/dL (0.5-0.9) H Estimat Glomerular Filtration Rate mL/min (>60) Glucose Level 317 mg/dL (74-106) #H Calcium Level 6.1 mg/dL (8.6-10.2) L Phosphorus Level 2.3 mg/dL (2.5-4.8) L Magnesium Level 1.9 mg/dL (1.7-2.5) Total Bilirubin 0.4 mg/dL (0.0-1.2) Aspartate Amino Transf (AST/SGOT) 61 U/L (5-40) H Alanine Aminotransferase (ALT/SGPT) 36 U/L (3-33) H Alkaline Phosphatase 69 U/L (35-104) Total Protein 4.1 g/dL (6.6-8.7) L Albumin 1.7 g/dL (3.5-5.2) L Globulin 2.4 g/dL Albumin/Globulin Ratio 0.7 (1.0-2.7) L Random Vancomycin Level 9.6 ug/mL Current Medications Medications (Trade) Dose Ordered Sig/Josefa Route PRN Reason Start Time Stop Time Status Last Admin Dose Admin Acetaminophen (Tylenol) 650 mg Q4H PRN RECTAL Mild Pain (Pain Scale 1-3) 06/11/17 07:00 07/11/17 06:59 06/12/17 09:38 Acetaminophen 650 mg 650 mg Q4H PRN RECTAL FEVER OVER 100.5 F 06/11/17 21:45 07/11/17 21:44 06/11/17 22:22 Chlorhexidine Gluconate (Andreea-Hex 2%) 1 applic DAILY TOPIC 06/12/17 21:00 07/12/17 20:59 06/13/17 20:32 Pantoprazole 40 mg 40 mg EVERY 12 HOURS IVP 06/11/17 09:00 07/11/17 08:59 06/13/17 20:31 Piperacillin Sod/ Tazobactam Sod/ Dextrose (Zosyn/D5W) 110 ml @ 27.5 mls/hr EVERY 8 HOURS IVPB 06/11/17 09:00 06/16/17 08:59 06/14/17 05:34 Sodium (0.45%NS w/KCl 20mEq 1000ml) 1,000 ml @ 100 mls/hr Q10H IV 06/13/17 13:00 07/13/17 12:59 06/13/17 23:31 Vancomycin HCl (Vanco rx to dose) 1 ea DAILY PRN MISC Per rx protocol 06/11/17 09:00 07/11/17 08:59 RUCHI MERCADO Jun 14, 2017 06:59
[2017-06-14 07:27] LABS: BAND NEUTROPHILS % (MANUAL) 3 % (0-8); BASOPHILS % (MANUAL) 0 % (0-2); EOSINOPHILS % (MANUAL) 0 % (0-3); HYPOCHROMASIA 1+; LYMPHOCYTES % (MANUAL) 6 % (20-45); NEUTROPHILS % (MANUAL) 87 % (45-75); PLATELET ESTIMATE DECREASED; PLATELET MORPHOLOGY NORMAL; TOTAL CELLS COUNTED 100
[2017-06-14 07:28] LABS: POLYCHROMASIA OCCASIONAL
[2017-06-14] MEDS ORDERED: Morphine Sulfate 2mg/ml Inj IVP PRN (08:00)
--- NOTE | 2017-06-14 08:03 | Critical Care Progress Note ---
Assessment/Plan Assessment/Plan respiratory failure- extubated shock- now stable possible sepsis leukocytosis protein calorie malnutrition elevated CK possible rhabdo post spine surgery acute encephalopathy- improved ARF with oliguria, improved hypotension improved ?[facility] ICU care noted; possible transfer to [facility] pressors remain off monitor WBC IV antibiotics pending cultures; possible dc soon respiratory care titrate oxygen improved acid base supportive care suction as needed remove drain oxygen therapy reduced prognosis seems improved monitor platelets all consultants appreciated medications/laboratory data/nursing notes/ICU care reviewed in detail note reviewed and edited care discussed with RN and RT ICU time spent 38 minutes Critical Care - Subjective Interval Events: extubated mild congestion not safe to swallow drain with minimal output ROS Limited/Unobtainable: Yes Condition: critical EKG Rhythm: Sinus Rhythm I&O: Intake and Output 06/13/17 06/14/17 19:00 07:00 Intake Total 2851.944 ml 1607.776 ml Output Total 1340 ml 830 ml Balance 1511.944 ml 777.776 ml Intake Oral 0 ml IV Total 1611.944 ml 1607.776 ml Tube Feeding 580 ml Blood Product 600 ml Other 60 ml Output Urine Total 1340 ml 780 ml Drainage Total 50 ml Critical Care - Objective ET-Tube: 7.5 ET Position: 22 Last 24 Hour Vital Signs Date Time Temp Pulse Resp B/P Pulse Ox O2 Delivery O2 Flow Rate FiO2 06/14/17 07:00 84 30 148/80 100 Nasal Cannula 3.0 06/14/17 06:00 83 30 149/77 100 Nasal Cannula 3.0 06/14/17 05:00 95 33 148/76 99 Nasal Cannula 3.0 06/14/17 04:00 86 06/14/17 04:00 98.7 86 32 150/74 100 Nasal Cannula 3.0 06/14/17 03:00 84 31 148/70 99 Nasal Cannula 3.0 06/14/17 02:00 88 30 153/69 99 Nasal Cannula 3.0 06/14/17 01:00 90 31 145/79 99 Nasal Cannula 3.0 06/14/17 00:00 98.2 91 34 152/65 99 Nasal Cannula 3.0 06/14/17 00:00 91 06/13/17 23:00 90 26 143/77 99 Nasal Cannula 3.0 06/13/17 22:00 90 34 141/81 99 Nasal Cannula 3.0 06/13/17 21:00 92 36 152/69 98 Nasal Cannula 3.0 06/13/17 20:00 104 06/13/17 20:00 98.6 104 37 149/72 98 Nasal Cannula 3.0 06/13/17 19:00 97 29 154/64 97 Nasal Cannula 3.0 06/13/17 18:49 Nasal Cannula 5.0 06/13/17 18:48 97 Nasal Cannula 5.0 06/13/17 18:00 97 30 136/59 97 Nasal Cannula 3.0 06/13/17 17:00 93 23 148/67 100 Nasal Cannula 3.0 06/13/17 16:00 98.1 92 30 155/64 96 Nasal Cannula 3.0 06/13/17 16:00 99 06/13/17 15:00 93 23 148/76 100 Mechanical Ventilator 40 06/13/17 14:00 103 24 152/66 100 Mechanical Ventilator 40 06/13/17 14:00 Nasal Cannula 2.0 28 06/13/17 13:00 95 36 40 06/13/17 13:00 105 29 156/68 100 Mechanical Ventilator 40 06/13/17 12:00 117 06/13/17 12:00 40 06/13/17 12:00 97.8 101 30 155/64 100 Mechanical Ventilator 40 06/13/17 11:22 40 06/13/17 11:15 102 41 40 06/13/17 11:00 101 30 134/50 100 Mechanical Ventilator 40 06/13/17 10:00 101 31 136/57 100 Mechanical Ventilator 40 06/13/17 09:00 102 32 122/70 100 Mechanical Ventilator 40 06/13/17 08:49 102 34 40 Labs: Labs Test 06/11/17 16:00 06/11/17 18:45 06/12/17 04:00 06/12/17 06:00 Sodium Level 142 mEQ/L (135-145) 141 mEQ/L (135-145) Potassium Level 4.1 mEQ/L (3.4-4.9) 4.0 mEQ/L (3.4-4.9) Chloride Level 115 mEQ/L (98-107) 115 mEQ/L (98-107) Carbon Dioxide Level 13 mEQ/L (20-30) 15 mEQ/L (20-30) Anion Gap 14 (5-15) 11 (5-15) Blood Urea Nitrogen 19 mg/dL (7-23) 24 mg/dL (7-23) Creatinine 2.0 mg/dL (0.5-0.9) 2.2 mg/dL (0.5-0.9) Estimat Glomerular Filtration Rate mL/min (>60) mL/min (>60) Glucose Level 247 mg/dL (74-106) 148 mg/dL (74-106) Calcium Level 6.0 mg/dL (8.6-10.2) 6.1 mg/dL (8.6-10.2) Total Bilirubin 0.2 mg/dL (0.0-1.2) 0.3 mg/dL (0.0-1.2) Aspartate Amino Transf (AST/SGOT) 122 U/L (5-40) 119 U/L (5-40) Alanine Aminotransferase (ALT/SGPT) 58 U/L (3-33) 53 U/L (3-33) Alkaline Phosphatase 28 U/L (35-104) 43 U/L (35-104) Total Creatine Kinase 2945 U/L (26-140) 1916 U/L (26-140) Troponin I 0.51 ng/mL (<=0.30) 0.31 ng/mL (<=0.30) Total Protein 3.6 g/dL (6.6-8.7) 3.7 g/dL (6.6-8.7) Albumin 2.0 g/dL (3.5-5.2) 1.9 g/dL (3.5-5.2) Globulin 1.6 g/dL 1.8 g/dL Albumin/Globulin Ratio 1.2 (1.0-2.7) 1.0 (1.0-2.7) Lactic Acid Level 3.70 mmol/L (0.66-2.22) 2.00 mmol/L (0.66-2.22) White Blood Count 20.1 K/UL (4.8-10.8) Red Blood Count 2.65 M/UL (4.20-5.40) Hemoglobin 8.0 G/DL (12.0-16.0) Hematocrit 24.3 % (37.0-47.0) Mean Corpuscular Volume 92 FL (80-99) Mean Corpuscular Hemoglobin 30.0 PG (27.0-31.0) Mean Corpuscular Hemoglobin Concent 32.8 G/DL (32.0-36.0) Red Cell Distribution Width 15.3 % (11.6-14.8) Platelet Count 103 K/UL (150-450) Mean Platelet Volume 6.2 FL (6.5-10.1) Neutrophils (%) (Auto) % (45.0-75.0) Lymphocytes (%) (Auto) % (20.0-45.0) Monocytes (%) (Auto) % (1.0-10.0) Eosinophils (%) (Auto) % (0.0-3.0) Basophils (%) (Auto) % (0.0-2.0) Differential Total Cells Counted 100 Neutrophils % (Manual) 70 % (45-75) Lymphocytes % (Manual) 10 % (20-45) Monocytes % (Manual) 1 % (1-10) Eosinophils % (Manual) 0 % (0-3) Basophils % (Manual) 0 % (0-2) Band Neutrophils 19 % (0-8) Platelet Estimate Decreased Platelet Morphology Normal Poikilocytosis 1+ Anisocytosis 1+ Phosphorus Level 2.4 MG/DL (2.5-4.9) Lactate Dehydrogenase 513 U/L (135-225) Arterial Blood pH 7.330 (7.350-7.450) Arterial Blood Partial Pressure CO2 29.5 mmHg (35.0-45.0) Arterial Blood Partial Pressure O2 71.6 mmHg (75.0-100.0) Arterial Blood HCO3 15.2 mmol/L (22.0-26.0) Arterial Blood Oxygen Saturation 92.7 % (92.0-98.0) Arterial Blood Base Excess -9.7 Quirino Test Positive Test 06/12/17 14:25 06/12/17 17:45 06/13/17 06:30 06/13/17 07:00 Vancomycin Level Trough 15.7 ug/mL (5.0-12.0) Sodium Level 143 mEQ/L (135-145) 141 mEQ/L (135-145) Potassium Level 3.6 mEQ/L (3.4-4.9) 3.0 mEQ/L (3.4-4.9) Chloride Level 114 mEQ/L (98-107) 108 mEQ/L (98-107) Carbon Dioxide Level 18 mEQ/L (20-30) 20 mEQ/L (20-30) Anion Gap 11 (5-15) 13 (5-15) Blood Urea Nitrogen 25 mg/dL (7-23) 21 mg/dL (7-23) Creatinine 2.1 mg/dL (0.5-0.9) 1.7 mg/dL (0.5-0.9) Estimat Glomerular Filtration Rate mL/min (>60) mL/min (>60) Glucose Level 160 mg/dL (74-106) 140 mg/dL (74-106) Calcium Level 5.9 mg/dL (8.6-10.2) 6.2 mg/dL (8.6-10.2) White Blood Count 15.2 K/UL (4.8-10.8) 14.5 K/UL (4.8-10.8) Red Blood Count 1.97 M/UL (4.20-5.40) 1.99 M/UL (4.20-5.40) Hemoglobin 5.9 G/DL (12.0-16.0) 5.9 G/DL (12.0-16.0) Hematocrit 17.6 % (37.0-47.0) 17.7 % (37.0-47.0) Mean Corpuscular Volume 89 FL (80-99) 89 FL (80-99) Mean Corpuscular Hemoglobin 29.8 PG (27.0-31.0) 29.6 PG (27.0-31.0) Mean Corpuscular Hemoglobin Concent 33.3 G/DL (32.0-36.0) 33.3 G/DL (32.0-36.0) Red Cell Distribution Width 15.0 % (11.6-14.8) 13.9 % (11.6-14.8) Platelet Count 98 K/UL (150-450) 99 K/UL (150-450) Mean Platelet Volume 6.3 FL (6.5-10.1) 6.0 FL (6.5-10.1) Neutrophils (%) (Auto) % (45.0-75.0) % (45.0-75.0) Lymphocytes (%) (Auto) % (20.0-45.0) % (20.0-45.0) Monocytes (%) (Auto) % (1.0-10.0) % (1.0-10.0) Eosinophils (%) (Auto) % (0.0-3.0) % (0.0-3.0) Basophils (%) (Auto) % (0.0-2.0) % (0.0-2.0) Differential Total Cells Counted 100 100 Neutrophils % (Manual) 79 % (45-75) 75 % (45-75) Lymphocytes % (Manual) 9 % (20-45) 8 % (20-45) Monocytes % (Manual) 5 % (1-10) 7 % (1-10) Eosinophils % (Manual) 0 % (0-3) 0 % (0-3) Basophils % (Manual) 0 % (0-2) 0 % (0-2) Band Neutrophils 7 % (0-8) 10 % (0-8) Nucleated Red Blood Cells 1 /100 WBC 3 /100 WBC Platelet Estimate Decreased Decreased Platelet Morphology Normal Normal Hypochromasia 1+ 1+ Anisocytosis 1+ 1+ Phosphorus Level 1.8 mg/dL (2.5-4.8) Magnesium Level 1.4 mg/dL (1.7-2.5) Test 06/13/17 08:56 06/13/17 12:15 06/13/17 20:00 06/14/17 05:00 Arterial Blood pH 7.514 (7.350-7.450) 7.476 (7.350-7.450) Arterial Blood Partial Pressure CO2 25.7 mmHg (35.0-45.0) 29.9 mmHg (35.0-45.0) Arterial Blood Partial Pressure O2 110.5 mmHg (75.0-100.0) 101.1 mmHg (75.0-100.0) Arterial Blood HCO3 20.2 mmol/L (22.0-26.0) 21.6 mmol/L (22.0-26.0) Arterial Blood Oxygen Saturation 97.2 % (92.0-98.0) 97.2 % (92.0-98.0) Arterial Blood Base Excess -2.5 -1.8 Quirino Test Positive Positive White Blood Count 16.6 K/UL (4.8-10.8) 15.6 K/UL (4.8-10.8) Red Blood Count 3.05 M/UL (4.20-5.40) 2.98 M/UL (4.20-5.40) Hemoglobin 9.7 G/DL (12.0-16.0) 9.2 G/DL (12.0-16.0) Hematocrit 26.8 % (37.0-47.0) 26.5 % (37.0-47.0) Mean Corpuscular Volume 88 FL (80-99) 89 FL (80-99) Mean Corpuscular Hemoglobin 31.8 PG (27.0-31.0) 30.9 PG (27.0-31.0) Mean Corpuscular Hemoglobin Concent 36.2 G/DL (32.0-36.0) 34.9 G/DL (32.0-36.0) Red Cell Distribution Width 13.4 % (11.6-14.8) 13.6 % (11.6-14.8) Platelet Count 93 K/UL (150-450) 81 K/UL (150-450) Mean Platelet Volume 7.7 FL (6.5-10.1) 5.9 FL (6.5-10.1) Neutrophils (%) (Auto) 87.8 % (45.0-75.0) % (45.0-75.0) Lymphocytes (%) (Auto) 6.2 % (20.0-45.0) % (20.0-45.0) Monocytes (%) (Auto) 5.1 % (1.0-10.0) % (1.0-10.0) Eosinophils (%) (Auto) 0.3 % (0.0-3.0) % (0.0-3.0) Basophils (%) (Auto) 0.6 % (0.0-2.0) % (0.0-2.0) Differential Total Cells Counted 100 Neutrophils % (Manual) 87 % (45-75) Lymphocytes % (Manual) 6 % (20-45) Monocytes % (Manual) 4 % (1-10) Eosinophils % (Manual) 0 % (0-3) Basophils % (Manual) 0 % (0-2) Band Neutrophils 3 % (0-8) Platelet Estimate Decreased Platelet Morphology Normal Polychromasia Occasional Hypochromasia 1+ Sodium Level 135 mEQ/L (135-145) Potassium Level 3.6 mEQ/L (3.4-4.9) Chloride Level 99 mEQ/L (98-107) Carbon Dioxide Level 20 mEQ/L (20-30) Anion Gap 16 (5-15) Blood Urea Nitrogen 15 mg/dL (7-23) Creatinine 1.1 mg/dL (0.5-0.9) Estimat Glomerular Filtration Rate mL/min (>60) Glucose Level 317 mg/dL (74-106) Calcium Level 6.1 mg/dL (8.6-10.2) Phosphorus Level 2.3 mg/dL (2.5-4.8) Magnesium Level 1.9 mg/dL (1.7-2.5) Total Bilirubin 0.4 mg/dL (0.0-1.2) Aspartate Amino Transf (AST/SGOT) 61 U/L (5-40) Alanine Aminotransferase (ALT/SGPT) 36 U/L (3-33) Alkaline Phosphatase 69 U/L (35-104) Total Protein 4.1 g/dL (6.6-8.7) Albumin 1.7 g/dL (3.5-5.2) Globulin 2.4 g/dL Albumin/Globulin Ratio 0.7 (1.0-2.7) Random Vancomycin Level 9.6 ug/mL Objective: WDWN NAD much more alert and extubated reduced breath sounds bilaterally with some rhonchi S1S2 RRR without MRG noted bowel sounds, nontender no HSM no CC; trace edema nonfocal awake OGT is out HV in place- minimal drainage reviewed and edited Accucheck: 167 MARISABEL CISNEROS Jun 14, 2017 08:03
[2017-06-14] MEDS: Pantoprazole Inj IVP SCH ×2 (08:56→21:00)
[2017-06-14] MEDS: 1/2NS w/KCl 20mEq 1000ml 1,000 ML IV SCH ×3 (08:56→22:15)
[2017-06-14] MEDS ORDERED: Heparin 2000 units/Ns 1000ml INJ PRN (09:00)
[2017-06-14] MEDS ORDERED: Lidocaine 1% Plain 30 ml INJ PRN (09:00)
[2017-06-14] MEDS ORDERED: Vancomycin 750mg/D5W 275ml IVPB SCH ×2 (10:00)
[2017-06-14] MEDS ORDERED: NS 275ml ONE (11:00)
[2017-06-14 11:18] LABS: OTHERS PATHOLOGIST COMMENT
--- NOTE | 2017-06-14 13:28 | Diagnostic Imaging Report ---
Indication: Dyspnea Comparison: 06/12/17 A single view chest radiograph was obtained. Findings: There is a hazy opacity at the left lung base silhouetting out the left hemidiaphragm. Heart size is borderline enlarged. There is suggestion of mild interstitial edema centrally within the lungs. Please correlate clinically. Bones are osteopenic. Impression: Suspicion of mild central pulmonary edema. Suspicion of a left pleural effusion
[2017-06-14] MEDS: Morphine Sulfate 2mg/ml Inj IVP PRN ×2 (13:49→18:00)
--- NOTE | 2017-06-14 14:38 | General Progress Note ---
Assessment/Plan Problem List: (1) Pneumonia ICD Codes: J18.9 - Pneumonia, unspecified organism SNOMED: 517520256 Qualifiers: Qualified Codes: J18.9 - Pneumonia, unspecified organism (2) Sepsis ICD Codes: A41.9 - Sepsis, unspecified organism SNOMED: 37228790 Qualifiers: Qualified Codes: A41.9 - Sepsis, unspecified organism (3) ZEKE (acute kidney injury) ICD Codes: N17.9 - Acute kidney failure, unspecified SNOMED: 08719723 (4) Altered level of consciousness ICD Codes: R40.4 - Transient alteration of awareness SNOMED: 2082463 (5) respiratory failure, on ventilator (6) septic shock (7) Protein-calorie malnutrition, severe ICD Codes: E43 - Unspecified severe protein-calorie malnutrition SNOMED: 389567641 Assessment/Plan ivf monitor fluid status monitor h/h and transfuse as nneded abx per id follow up cultures dvt/stress ulcer prophylaxis video swallow resp care/o2 remains guarded d/w Subjective ROS Limited/Unobtainable: Yes Constitutional: Reports: malaise, weakness HEENT: Reports: no symptoms Cardiovascular: Reports: edema Respiratory: Reports: cough, sputum Gastrointestinal/Abdominal: Reports: difficulty swallowing Genitourinary: Reports: no symptoms Neurologic/Psychiatric: Reports: pre-existing deficit Endocrine: Reports: no symptoms Hematologic/Lymphatic: Reports: anemia Allergies: Coded Allergies: No Known Allergies (Unverified , 06/10/17) All Systems: reviewed and negative except above Subjective extubated. minimal congestion. alert but slow to respond to questions/commands. denies sob. withdrawn. failed swallow eval. Objective Last 24 Hour Vital Signs Date Time Temp Pulse Resp B/P Pulse Ox O2 Delivery O2 Flow Rate FiO2 06/14/17 14:00 81 26 145/77 98 Nasal Cannula 3.0 06/14/17 13:00 96 29 112/63 98 Nasal Cannula 3.0 06/14/17 12:00 91 06/14/17 12:00 98.2 82 28 147/78 96 Nasal Cannula 3.0 06/14/17 11:00 94 29 144/87 98 Nasal Cannula 3.0 06/14/17 10:00 93 30 150/80 98 Nasal Cannula 3.0 06/14/17 09:00 87 30 142/71 98 Nasal Cannula 3.0 06/14/17 08:33 98.7 06/14/17 08:00 98.1 82 28 141/67 100 Nasal Cannula 3.0 06/14/17 08:00 88 06/14/17 07:00 84 30 148/80 100 Nasal Cannula 3.0 06/14/17 06:00 83 30 149/77 100 Nasal Cannula 3.0 06/14/17 05:00 95 33 148/76 99 Nasal Cannula 3.0 06/14/17 04:00 86 06/14/17 04:00 98.7 86 32 150/74 100 Nasal Cannula 3.0 06/14/17 03:00 84 31 148/70 99 Nasal Cannula 3.0 06/14/17 02:00 88 30 153/69 99 Nasal Cannula 3.0 06/14/17 01:00 90 31 145/79 99 Nasal Cannula 3.0 06/14/17 00:00 98.2 91 34 152/65 99 Nasal Cannula 3.0 06/14/17 00:00 91 06/13/17 23:00 90 26 143/77 99 Nasal Cannula 3.0 06/13/17 22:00 90 34 141/81 99 Nasal Cannula 3.0 06/13/17 21:00 92 36 152/69 98 Nasal Cannula 3.0 06/13/17 20:00 104 06/13/17 20:00 98.6 104 37 149/72 98 Nasal Cannula 3.0 06/13/17 19:00 97 29 154/64 97 Nasal Cannula 3.0 06/13/17 18:49 Nasal Cannula 5.0 06/13/17 18:48 97 Nasal Cannula 5.0 06/13/17 18:00 97 30 136/59 97 Nasal Cannula 3.0 06/13/17 17:00 93 23 148/67 100 Nasal Cannula 3.0 06/13/17 16:00 98.1 92 30 155/64 96 Nasal Cannula 3.0 06/13/17 16:00 99 06/13/17 15:00 93 23 148/76 100 Mechanical Ventilator 40 Intake and Output 06/13/17 06/14/17 19:00 07:00 Intake Total 2551.944 ml 1707.776 ml Output Total 1340 ml 830 ml Balance 1211.944 ml 877.776 ml Intake Oral 0 ml IV Total 1611.944 ml 1707.776 ml Tube Feeding 280 ml Blood Product 600 ml Other 60 ml Output Urine Total 1340 ml 780 ml Drainage Total 50 ml Laboratory Tests 06/13/17 20:00: White Blood Count 16.6H, Red Blood Count 3.05L, Hemoglobin 9.7#L, Hematocrit 26.8#L, Mean Corpuscular Volume 88, Mean Corpuscular Hemoglobin 31.8H, Mean Corpuscular Hemoglobin Concent 36.2H, Red Cell Distribution Width 13.4, Platelet Count 93L, Mean Platelet Volume 7.7, Neutrophils (%) (Auto) 87.8H, Lymphocytes (%) (Auto) 6.2L, Monocytes (%) (Auto) 5.1, Eosinophils (%) (Auto) 0.3, Basophils (%) (Auto) 0.6 06/14/17 05:00: White Blood Count 15.6H, Red Blood Count 2.98L, Hemoglobin 9.2L, Hematocrit 26.5L, Mean Corpuscular Volume 89, Mean Corpuscular Hemoglobin 30.9, Mean Corpuscular Hemoglobin Concent 34.9, Red Cell Distribution Width 13.6, Platelet Count 81L, Mean Platelet Volume 5.9L, Neutrophils (%) (Auto) , Lymphocytes (%) ( Auto) , Monocytes (%) (Auto) , Eosinophils (%) (Auto) , Basophils (%) (Auto) , Differential Total Cells Counted 100, Neutrophils % (Manual) 87H, Lymphocytes % (Manual) 6L, Monocytes % (Manual) 4, Eosinophils % (Manual) 0, Basophils % ( Manual) 0, Band Neutrophils 3, Platelet Estimate DecreasedL, Platelet Morphology Normal, Polychromasia Occasional, Hypochromasia 1+, Sodium Level 135 , Potassium Level 3.6, Chloride Level 99, Carbon Dioxide Level 20, Anion Gap 16H , Blood Urea Nitrogen 15, Creatinine 1.1H, Estimat Glomerular Filtration Rate , Glucose Level 317#H, Calcium Level 6.1L, Phosphorus Level 2.3L, Magnesium Level 1.9, Total Bilirubin 0.4, Aspartate Amino Transf (AST/SGOT) 61H, Alanine Aminotransferase (ALT/SGPT) 36H, Alkaline Phosphatase 69, Total Protein 4.1L, Albumin 1.7L, Globulin 2.4, Albumin/Globulin Ratio 0.7L, Random Vancomycin Level 9.6 Height (Feet): 5 Height (Inches): 8.00 Weight (Pounds): 172 Objective General Appearance: WD/WN, alert. follows commands Neck: supple Cardiovascular: regular rhythm Respiratory/Chest: rhonchi - bilaterally Abdomen: normal bowel sounds, non tender, soft, no organomegaly Edema: mild edema Neurologic: responsive, disoriented Skin: normal pigmentation JAMES PARKER Jun 14, 2017 14:38
--- NOTE | 2017-06-14 15:31 | General Progress Note ---
Assessment/Plan Assessment/Plan 1. Thrombocytopenia potentially secondary to underlying sepsis. 2. Anemia secondary to bleed, drainage from surgical site wound --> monitor, hgb goal above 7 --> s/p blood transfusion, consent from 3. Decreased hemoglobin and hematocrit, rule out gastrointestinal bleed. 4. Potential transfusion reaction. --> not noted in review of record 5. Respiratory Failure --> intubated, on a vent --> now extubated 6. Altered mental status. 7. Sepsis. 8. Leukocytosis. 9. Rhabdomyolysis. 10. Cerebrovascular accident. 11. Acute kidney injury. 12. Status post spine surgery Subjective Constitutional: Reports: no symptoms HEENT: Reports: no symptoms Cardiovascular: Reports: no symptoms Respiratory: Reports: no symptoms Gastrointestinal/Abdominal: Reports: no symptoms Genitourinary: Reports: no symptoms Neurologic/Psychiatric: Reports: no symptoms Endocrine: Reports: no symptoms Hematologic/Lymphatic: Reports: anemia Allergies: Coded Allergies: No Known Allergies (Unverified , 06/10/17) Subjective has been extubated, is congested Objective Last 24 Hour Vital Signs Date Time Temp Pulse Resp B/P Pulse Ox O2 Delivery O2 Flow Rate FiO2 06/14/17 15:00 90 24 156/82 98 Nasal Cannula 3.0 06/14/17 14:19 98.2 06/14/17 14:00 81 26 145/77 98 Nasal Cannula 3.0 06/14/17 13:00 96 29 112/63 98 Nasal Cannula 3.0 06/14/17 12:00 91 06/14/17 12:00 98.2 82 28 147/78 96 Nasal Cannula 3.0 06/14/17 11:00 94 29 144/87 98 Nasal Cannula 3.0 06/14/17 10:00 93 30 150/80 98 Nasal Cannula 3.0 06/14/17 09:00 87 30 142/71 98 Nasal Cannula 3.0 06/14/17 08:33 98.7 06/14/17 08:00 98.1 82 28 141/67 100 Nasal Cannula 3.0 06/14/17 08:00 88 06/14/17 07:00 84 30 148/80 100 Nasal Cannula 3.0 06/14/17 06:00 83 30 149/77 100 Nasal Cannula 3.0 06/14/17 05:00 95 33 148/76 99 Nasal Cannula 3.0 06/14/17 04:00 86 06/14/17 04:00 98.7 86 32 150/74 100 Nasal Cannula 3.0 06/14/17 03:00 84 31 148/70 99 Nasal Cannula 3.0 06/14/17 02:00 88 30 153/69 99 Nasal Cannula 3.0 06/14/17 01:00 90 31 145/79 99 Nasal Cannula 3.0 06/14/17 00:00 98.2 91 34 152/65 99 Nasal Cannula 3.0 06/14/17 00:00 91 06/13/17 23:00 90 26 143/77 99 Nasal Cannula 3.0 06/13/17 22:00 90 34 141/81 99 Nasal Cannula 3.0 06/13/17 21:00 92 36 152/69 98 Nasal Cannula 3.0 06/13/17 20:00 104 06/13/17 20:00 98.6 104 37 149/72 98 Nasal Cannula 3.0 06/13/17 19:00 97 29 154/64 97 Nasal Cannula 3.0 06/13/17 18:49 Nasal Cannula 5.0 06/13/17 18:48 97 Nasal Cannula 5.0 06/13/17 18:00 97 30 136/59 97 Nasal Cannula 3.0 06/13/17 17:00 93 23 148/67 100 Nasal Cannula 3.0 06/13/17 16:00 98.1 92 30 155/64 96 Nasal Cannula 3.0 06/13/17 16:00 99 Intake and Output 06/13/17 06/14/17 19:00 07:00 Intake Total 2551.944 ml 1707.776 ml Output Total 1340 ml 830 ml Balance 1211.944 ml 877.776 ml Intake Oral 0 ml IV Total 1611.944 ml 1707.776 ml Tube Feeding 280 ml Blood Product 600 ml Other 60 ml Output Urine Total 1340 ml 780 ml Drainage Total 50 ml Laboratory Tests 06/13/17 20:00: White Blood Count 16.6H, Red Blood Count 3.05L, Hemoglobin 9.7#L, Hematocrit 26.8#L, Mean Corpuscular Volume 88, Mean Corpuscular Hemoglobin 31.8H, Mean Corpuscular Hemoglobin Concent 36.2H, Red Cell Distribution Width 13.4, Platelet Count 93L, Mean Platelet Volume 7.7, Neutrophils (%) (Auto) 87.8H, Lymphocytes (%) (Auto) 6.2L, Monocytes (%) (Auto) 5.1, Eosinophils (%) (Auto) 0.3, Basophils (%) (Auto) 0.6 06/14/17 05:00: White Blood Count 15.6H, Red Blood Count 2.98L, Hemoglobin 9.2L, Hematocrit 26.5L, Mean Corpuscular Volume 89, Mean Corpuscular Hemoglobin 30.9, Mean Corpuscular Hemoglobin Concent 34.9, Red Cell Distribution Width 13.6, Platelet Count 81L, Mean Platelet Volume 5.9L, Neutrophils (%) (Auto) , Lymphocytes (%) ( Auto) , Monocytes (%) (Auto) , Eosinophils (%) (Auto) , Basophils (%) (Auto) , Differential Total Cells Counted 100, Neutrophils % (Manual) 87H, Lymphocytes % (Manual) 6L, Monocytes % (Manual) 4, Eosinophils % (Manual) 0, Basophils % ( Manual) 0, Band Neutrophils 3, Platelet Estimate DecreasedL, Platelet Morphology Normal, Polychromasia Occasional, Hypochromasia 1+, Sodium Level 135 , Potassium Level 3.6, Chloride Level 99, Carbon Dioxide Level 20, Anion Gap 16H , Blood Urea Nitrogen 15, Creatinine 1.1H, Estimat Glomerular Filtration Rate , Glucose Level 317#H, Calcium Level 6.1L, Phosphorus Level 2.3L, Magnesium Level 1.9, Total Bilirubin 0.4, Aspartate Amino Transf (AST/SGOT) 61H, Alanine Aminotransferase (ALT/SGPT) 36H, Alkaline Phosphatase 69, Total Protein 4.1L, Albumin 1.7L, Globulin 2.4, Albumin/Globulin Ratio 0.7L, Random Vancomycin Level 9.6 Height (Feet): 5 Height (Inches): 8.00 Weight (Pounds): 172 General Appearance: no apparent distress EENT: PERRL/EOMI Neck: non-tender Cardiovascular: normal peripheral pulses Respiratory/Chest: chest wall non-tender Abdomen: soft Pelvis: normal external exam Neurologic: curam developer II-XII grossly normal Skin: warm/dry Franco De La Rosa Jun 14, 2017 15:31
[2017-06-14] MEDS ORDERED: Heparin 2000 units/Ns 1000ml INJ ONE (18:45)
[2017-06-14] MEDS ORDERED: Lidocaine 1% Plain 30 ml INJ ONE (18:45)
[2017-06-14] MEDS ORDERED: Acetaminophen 650 MG SUPP RECTAL PRN ×2 (19:00→21:45)
[2017-06-14] MEDS ORDERED: Dyna-Hex 2% Top Sol 8oz TOPIC SCH (21:00)
[2017-06-14] MEDS: Dyna-Hex 2% Top Sol 8oz TOPIC SCH (22:14)
[2017-06-15 04:29] VITALS: BP 158/78
[2017-06-15] MEDS: 1/2NS w/KCl 20mEq 1000ml 1,000 ML IV SCH ×3 (05:12→18:00)
[2017-06-15] MEDS: Piperacillin/Tazobactam 3.375 GM in D5W 110 ML IVPB SCH ×3 (05:16→22:27)
[2017-06-15 08:00] VITALS: BP 156/73
--- NOTE | 2017-06-15 08:24 | Critical Care Progress Note ---
Assessment/Plan Assessment/Plan respiratory failure- extubated shock- now stable possible sepsis leukocytosis protein calorie malnutrition elevated CK possible rhabdo post spine surgery acute encephalopathy- improved ARF with oliguria, improved hypotension improved ?TRALI PLAN monitor WBC IV antibiotics pending cultures; possible dc soon respiratory care titrate oxygen improved acid base supportive care suction as needed video swallow oxygen therapy as needed all consultants appreciated medications/laboratory data/nursing notes reviewed in detail note reviewed and edited care discussed with RN and RT Critical Care - Subjective Interval Events: not safe for swallowing care noted ROS Limited/Unobtainable: Yes EKG Rhythm: Sinus Rhythm I&O: Intake and Output 06/14/17 06/15/17 19:00 07:00 Intake Total 1385.000 ml 875 ml Output Total 1760 ml 3100 ml Balance -375.000 ml -2225 ml IV Total 1385.000 ml 875 ml Output Urine Total 1760 ml 3100 ml Critical Care - Objective ET-Tube: 7.5 ET Position: 22 Last 24 Hour Vital Signs Date Time Temp Pulse Resp B/P Pulse Ox O2 Delivery O2 Flow Rate FiO2 06/15/17 04:29 91 20 158/78 Room Air 06/15/17 04:00 77 06/15/17 00:00 92 06/14/17 23:49 97.0 89 19 147/86 93 Room Air 06/14/17 21:00 06/14/17 20:28 97.9 95 20 130/25 100 Room Air 06/14/17 20:00 97.9 80 20 130/85 93 Room Air 06/14/17 20:00 102 06/14/17 19:00 80 23 135/57 96 Nasal Cannula 3.0 06/14/17 18:00 99 24 143/81 96 Nasal Cannula 3.0 06/14/17 17:00 94 24 149/87 98 Nasal Cannula 3.0 06/14/17 16:00 99 06/14/17 16:00 98.1 80 28 149/87 96 Nasal Cannula 3.0 06/14/17 15:00 90 24 156/82 98 Nasal Cannula 3.0 06/14/17 14:19 98.2 06/14/17 14:00 81 26 145/77 98 Nasal Cannula 3.0 06/14/17 13:00 96 29 112/63 98 Nasal Cannula 3.0 06/14/17 12:00 78 06/14/17 12:00 98.2 82 28 147/78 96 Nasal Cannula 3.0 06/14/17 11:00 94 29 144/87 98 Nasal Cannula 3.0 06/14/17 10:00 93 30 150/80 98 Nasal Cannula 3.0 06/14/17 09:00 87 30 142/71 98 Nasal Cannula 3.0 06/14/17 08:33 98.7 Labs: Labs Test 06/12/17 14:25 06/12/17 17:45 06/13/17 06:30 06/13/17 07:00 Vancomycin Level Trough 15.7 ug/mL (5.0-12.0) Sodium Level 143 mEQ/L (135-145) 141 mEQ/L (135-145) Potassium Level 3.6 mEQ/L (3.4-4.9) 3.0 mEQ/L (3.4-4.9) Chloride Level 114 mEQ/L (98-107) 108 mEQ/L (98-107) Carbon Dioxide Level 18 mEQ/L (20-30) 20 mEQ/L (20-30) Anion Gap 11 (5-15) 13 (5-15) Blood Urea Nitrogen 25 mg/dL (7-23) 21 mg/dL (7-23) Creatinine 2.1 mg/dL (0.5-0.9) 1.7 mg/dL (0.5-0.9) Estimat Glomerular Filtration Rate mL/min (>60) mL/min (>60) Glucose Level 160 mg/dL (74-106) 140 mg/dL (74-106) Calcium Level 5.9 mg/dL (8.6-10.2) 6.2 mg/dL (8.6-10.2) White Blood Count 15.2 K/UL (4.8-10.8) 14.5 K/UL (4.8-10.8) Red Blood Count 1.97 M/UL (4.20-5.40) 1.99 M/UL (4.20-5.40) Hemoglobin 5.9 G/DL (12.0-16.0) 5.9 G/DL (12.0-16.0) Hematocrit 17.6 % (37.0-47.0) 17.7 % (37.0-47.0) Mean Corpuscular Volume 89 FL (80-99) 89 FL (80-99) Mean Corpuscular Hemoglobin 29.8 PG (27.0-31.0) 29.6 PG (27.0-31.0) Mean Corpuscular Hemoglobin Concent 33.3 G/DL (32.0-36.0) 33.3 G/DL (32.0-36.0) Red Cell Distribution Width 15.0 % (11.6-14.8) 13.9 % (11.6-14.8) Platelet Count 98 K/UL (150-450) 99 K/UL (150-450) Mean Platelet Volume 6.3 FL (6.5-10.1) 6.0 FL (6.5-10.1) Neutrophils (%) (Auto) % (45.0-75.0) % (45.0-75.0) Lymphocytes (%) (Auto) % (20.0-45.0) % (20.0-45.0) Monocytes (%) (Auto) % (1.0-10.0) % (1.0-10.0) Eosinophils (%) (Auto) % (0.0-3.0) % (0.0-3.0) Basophils (%) (Auto) % (0.0-2.0) % (0.0-2.0) Differential Total Cells Counted 100 100 Neutrophils % (Manual) 79 % (45-75) 75 % (45-75) Lymphocytes % (Manual) 9 % (20-45) 8 % (20-45) Monocytes % (Manual) 5 % (1-10) 7 % (1-10) Eosinophils % (Manual) 0 % (0-3) 0 % (0-3) Basophils % (Manual) 0 % (0-2) 0 % (0-2) Band Neutrophils 7 % (0-8) 10 % (0-8) Nucleated Red Blood Cells 1 /100 WBC 3 /100 WBC Platelet Estimate Decreased Decreased Platelet Morphology Normal Normal Hypochromasia 1+ 1+ Anisocytosis 1+ 1+ Phosphorus Level 1.8 mg/dL (2.5-4.8) Magnesium Level 1.4 mg/dL (1.7-2.5) Other Cell Type Pathologist comment Test 06/13/17 08:56 7/16/17 12:15 06/13/17 20:00 06/14/17 05:00 Arterial Blood pH 7.514 (7.350-7.450) 7.476 (7.350-7.450) Arterial Blood Partial Pressure CO2 25.7 mmHg (35.0-45.0) 29.9 mmHg (35.0-45.0) Arterial Blood Partial Pressure O2 110.5 mmHg (75.0-100.0) 101.1 mmHg (75.0-100.0) Arterial Blood HCO3 20.2 mmol/L (22.0-26.0) 21.6 mmol/L (22.0-26.0) Arterial Blood Oxygen Saturation 97.2 % (92.0-98.0) 97.2 % (92.0-98.0) Arterial Blood Base Excess -2.5 -1.8 Quirino Test Positive Positive White Blood Count 16.6 K/UL (4.8-10.8) 15.6 K/UL (4.8-10.8) Red Blood Count 3.05 M/UL (4.20-5.40) 2.98 M/UL (4.20-5.40) Hemoglobin 9.7 G/DL (12.0-16.0) 9.2 G/DL (12.0-16.0) Hematocrit 26.8 % (37.0-47.0) 26.5 % (37.0-47.0) Mean Corpuscular Volume 88 FL (80-99) 89 FL (80-99) Mean Corpuscular Hemoglobin 31.8 PG (27.0-31.0) 30.9 PG (27.0-31.0) Mean Corpuscular Hemoglobin Concent 36.2 G/DL (32.0-36.0) 34.9 G/DL (32.0-36.0) Red Cell Distribution Width 13.4 % (11.6-14.8) 13.6 % (11.6-14.8) Platelet Count 93 K/UL (150-450) 81 K/UL (150-450) Mean Platelet Volume 7.7 FL (6.5-10.1) 5.9 FL (6.5-10.1) Neutrophils (%) (Auto) 87.8 % (45.0-75.0) % (45.0-75.0) Lymphocytes (%) (Auto) 6.2 % (20.0-45.0) % (20.0-45.0) Monocytes (%) (Auto) 5.1 % (1.0-10.0) % (1.0-10.0) Eosinophils (%) (Auto) 0.3 % (0.0-3.0) % (0.0-3.0) Basophils (%) (Auto) 0.6 % (0.0-2.0) % (0.0-2.0) Differential Total Cells Counted 100 Neutrophils % (Manual) 87 % (45-75) Lymphocytes % (Manual) 6 % (20-45) Monocytes % (Manual) 4 % (1-10) Eosinophils % (Manual) 0 % (0-3) Basophils % (Manual) 0 % (0-2) Band Neutrophils 3 % (0-8) Platelet Estimate Decreased Platelet Morphology Normal Polychromasia Occasional Hypochromasia 1+ Sodium Level 135 mEQ/L (135-145) Potassium Level 3.6 mEQ/L (3.4-4.9) Chloride Level 99 mEQ/L (98-107) Carbon Dioxide Level 20 mEQ/L (20-30) Anion Gap 16 (5-15) Blood Urea Nitrogen 15 mg/dL (7-23) Creatinine 1.1 mg/dL (0.5-0.9) Estimat Glomerular Filtration Rate mL/min (>60) Glucose Level 317 mg/dL (74-106) Calcium Level 6.1 mg/dL (8.6-10.2) Phosphorus Level 2.3 mg/dL (2.5-4.8) Magnesium Level 1.9 mg/dL (1.7-2.5) Total Bilirubin 0.4 mg/dL (0.0-1.2) Aspartate Amino Transf (AST/SGOT) 61 U/L (5-40) Alanine Aminotransferase (ALT/SGPT) 36 U/L (3-33) Alkaline Phosphatase 69 U/L (35-104) Total Protein 4.1 g/dL (6.6-8.7) Albumin 1.7 g/dL (3.5-5.2) Globulin 2.4 g/dL Albumin/Globulin Ratio 0.7 (1.0-2.7) Random Vancomycin Level 9.6 ug/mL Test 06/14/17 18:20 Objective: WDWN NAD alert reduced breath sounds bilaterally with some rhonchi S1S2 RRR without MRG noted bowel sounds, nontender no HSM no CC; trace edema nonfocal awake HV out reviewed and edited Accucheck: 167 MARISABEL CISNEROS Jun 15, 2017 08:24
[2017-06-15] MEDS: Pantoprazole Inj IVP SCH ×2 (08:51→22:27)
--- NOTE | 2017-06-15 09:07 | General Progress Note ---
Assessment/Plan Problem List: (1) Pneumonia ICD Codes: J18.9 - Pneumonia, unspecified organism SNOMED: 677986578 Qualifiers: Qualified Codes: J18.9 - Pneumonia, unspecified organism (2) Sepsis ICD Codes: A41.9 - Sepsis, unspecified organism SNOMED: 60243402 Qualifiers: Qualified Codes: A41.9 - Sepsis, unspecified organism (3) ZEKE (acute kidney injury) ICD Codes: N17.9 - Acute kidney failure, unspecified SNOMED: 33919234 (4) Altered level of consciousness ICD Codes: R40.4 - Transient alteration of awareness SNOMED: 6467027 (5) respiratory failure, on ventilator (6) septic shock (7) Protein-calorie malnutrition, severe ICD Codes: E43 - Unspecified severe protein-calorie malnutrition SNOMED: 481930117 Status: stable, progressing Assessment/Plan ivf monitor fluid status monitor h/h and transfuse prn abx per id follow up cultures dvt/stress ulcer prophylaxis video swallow resp care/o2 cxr noted- +infiltrate/mild chf remains guarded d/w Subjective ROS Limited/Unobtainable: No Constitutional: Reports: malaise, weakness HEENT: Reports: no symptoms Cardiovascular: Reports: no symptoms Respiratory: Reports: cough Gastrointestinal/Abdominal: Reports: difficulty swallowing Genitourinary: Reports: no symptoms Neurologic/Psychiatric: Reports: pre-existing deficit Endocrine: Reports: no symptoms Hematologic/Lymphatic: Reports: no symptoms Allergies: Coded Allergies: No Known Allergies (Unverified , 06/10/17) All Systems: reviewed and negative except above Subjective extubated. minimal congestion. more alert this am. smiles. respond to questions/ commands. denies sob. failed swallow eval. waiting for video swallow Objective Last 24 Hour Vital Signs Date Time Temp Pulse Resp B/P Pulse Ox O2 Delivery O2 Flow Rate FiO2 06/15/17 08:00 99.6 85 21 156/73 96 Nasal Cannula 3.0 06/15/17 07:30 96 Nasal Cannula 2.0 28 06/15/17 07:30 Nasal Cannula 2.0 28 06/15/17 04:29 91 20 158/78 Room Air 06/15/17 04:00 77 06/15/17 00:00 92 06/14/17 23:49 97.0 89 19 147/86 93 Room Air 06/14/17 21:00 06/14/17 20:28 97.9 95 20 130/25 100 Room Air 06/14/17 20:00 97.9 80 20 130/85 93 Room Air 06/14/17 20:00 102 06/14/17 19:00 80 23 135/57 96 Nasal Cannula 3.0 06/14/17 18:00 99 24 143/81 96 Nasal Cannula 3.0 06/14/17 17:00 94 24 149/87 98 Nasal Cannula 3.0 06/14/17 16:00 99 06/14/17 16:00 98.1 80 28 149/87 96 Nasal Cannula 3.0 06/14/17 15:00 90 24 156/82 98 Nasal Cannula 3.0 06/14/17 14:19 98.2 06/14/17 14:00 81 26 145/77 98 Nasal Cannula 3.0 06/14/17 13:00 96 29 112/63 98 Nasal Cannula 3.0 06/14/17 12:00 78 06/14/17 12:00 98.2 82 28 147/78 96 Nasal Cannula 3.0 06/14/17 11:00 94 29 144/87 98 Nasal Cannula 3.0 06/14/17 10:00 93 30 150/80 98 Nasal Cannula 3.0 Intake and Output 06/14/17 06/15/17 18:59 06:59 Intake Total 1385.000 ml 875 ml Output Total 1720 ml 3220 ml Balance -335.000 ml -2345 ml IV Total 1385.000 ml 875 ml Output Urine Total 1720 ml 3220 ml Laboratory Tests 06/14/17 18:20: Stool Occult Blood [Pending] Height (Feet): 5 Height (Inches): 8.00 Weight (Pounds): 189 Objective General Appearance: WD/WN, alert. follows commands Neck: supple Cardiovascular: regular rhythm Respiratory/Chest: rhonchi - bilaterally Abdomen: normal bowel sounds, non tender, soft, no organomegaly Edema: mild edema Neurologic: responsive, disoriented Skin: normal pigmentation JAMES PARKER Jun 15, 2017 09:07
[2017-06-15] MEDS: Vancomycin 750 MG in D5W 275 ML IVPB SCH (09:35)
--- NOTE | 2017-06-15 10:50 | Infectious Diseases Prog Note ---
Assessment/Plan Assessment/Plan antibiotics : vancomycin iv, zosyn A 1. leucocytosis improving 2. respiratory failure resolved 3. renal failure improving 4. pleural effusion 5. ? pneumonia P 1. continue vancomycin iv, zosyn 2. will follow up cultures Subjective ROS Limited/Unobtainable: Yes Allergies: Coded Allergies: No Known Allergies (Unverified , 06/10/17) Objective Vital Signs Last 24 Hour Vital Signs Date Time Temp Pulse Resp B/P Pulse Ox O2 Delivery O2 Flow Rate FiO2 06/15/17 08:00 99.6 85 21 156/73 96 Nasal Cannula 3.0 06/15/17 08:00 80 06/15/17 07:30 96 Nasal Cannula 2.0 28 06/15/17 07:30 Nasal Cannula 2.0 06/15/17 04:29 91 20 158/78 Room Air 06/15/17 04:00 77 06/15/17 00:00 92 06/14/17 23:49 97.0 89 19 147/86 93 Room Air 06/14/17 21:00 06/14/17 20:28 97.9 95 20 130/25 100 Room Air 06/14/17 20:00 97.9 80 20 130/85 93 Room Air 06/14/17 20:00 102 06/14/17 19:00 80 23 135/57 96 Nasal Cannula 3.0 06/14/17 18:00 99 24 143/81 96 Nasal Cannula 3.0 06/14/17 17:00 94 24 149/87 98 Nasal Cannula 3.0 06/14/17 16:00 99 06/14/17 16:00 98.1 80 28 149/87 96 Nasal Cannula 3.0 06/14/17 15:00 90 24 156/82 98 Nasal Cannula 3.0 06/14/17 14:19 98.2 06/14/17 14:00 81 26 145/77 98 Nasal Cannula 3.0 06/14/17 13:00 96 29 112/63 98 Nasal Cannula 3.0 06/14/17 12:00 78 06/14/17 12:00 98.2 82 28 147/78 96 Nasal Cannula 3.0 06/14/17 11:00 94 29 144/87 98 Nasal Cannula 3.0 Height (Feet): 5 Height (Inches): 8.00 Weight (Pounds): 189 Respiratory/Chest: lungs clear Cardiovascular: normal rate, regular rhythm, no gallop/murmur Abdomen: soft, non tender Extremities: other - + edema Laboratory Tests Test 06/14/17 18:20 Stool Occult Blood Pending EARLENE BANKS Jun 15, 2017 10:49
[2017-06-15 12:00] VITALS: BP 148/78
[2017-06-15] MEDS: Morphine Sulfate 2mg/ml Inj IVP PRN (13:01)
[2017-06-15 16:00] VITALS: BP 153/85
[2017-06-15] MEDS ORDERED: Zemuron 50mg/5ml Inj IV ONE (16:24)
--- NOTE | 2017-06-15 17:25 | Cardiology Report ---
APPROVED REPORT EKG Measurement Heart [id number] CO 138P19 [id number] Sinus tachycardia with premature atrial complexes Low voltage QRS Borderline ECG
--- NOTE | 2017-06-15 17:32 | Cardiology Report ---
APPROVED REPORT EKG Measurement Heart [id number] 112P72 [id number] Sinus tachycardia with premature atrial complexes Low voltage QRS Nonspecific ST and T wave abnormality Abnormal ECG
[2017-06-15 20:00] VITALS: BP 130/82
[2017-06-15] MEDS: Dyna-Hex 2% Top Sol 8oz TOPIC SCH (23:14)
[2017-06-16] VITALS (7 sets, daily range): BP systolic 152–163; BP diastolic 71–93
--- NOTE | 2017-06-16 02:00 | Progress Note ---
DATE: 06/15/2017 CARDIOLOGY PROGRESS NOTE: SUBJECTIVE: The patient has failed to swallow evaluation. She remains NPO. Blood pressure is stable, off pressors. She is off ventilator support for almost 48 hours. She continues on antibiotics. OBJECTIVE: VITAL SIGNS: Blood pressure is 156/73, pulse rate 85, respiratory rate 21, and temperature 99.6 degrees. GENERAL: Poorly responsive. LUNGS: Coarse rhonchi. HEART: Regular rhythm and rate. Normal S1 and S2. ABDOMEN: Soft. EXTREMITIES: Trace edema. LABORATORY DATA: No new laboratories. IMPRESSION: 1. Status post respiratory failure, probable aspiration pneumonia with sepsis. 2. Resolving renal failure, recovered. 3. Rhabdomyolysis. 4. Acute myocardial ischemia. 5. Pleural effusion. 6. Hypophosphatemia. 7. Hypokalemia. 8. Hypomagnesemia. 9. Acute on chronic diastolic congestive heart failure. 10. Severe protein-calorie malnutrition. 11. Remains critical and guarded. PLAN: 1. Hydration. 2. Swallow evaluation. May need nasogastric tube. 3. Respiratory hygiene. 4. Antimicrobials, per Infectious Disease packaging sales consultant. 5. Add phosphorus. 6. Continue intravenous fluids. 7. Replace potassium and magnesium as needed. 8. Hold diuresis. 9. Monitor volume status. 10. Trend natriuretic peptide assay. Elia Baker JOB#: [id number] CC:
--- NOTE | 2017-06-16 02:00 | Progress Note ---
DATE: 06/14/2017 CARDIOLOGY PROGRESS NOTE SUBJECTIVE: The patient remains with critical condition and guarded prognosis. The patient remains off pressors. She is extubated. She remains NPO. She continues on IV fluid. OBJECTIVE: VITAL SIGNS: Blood pressure 148/80, pulse 84, and respiratory rate 30. LUNGS: Coarse breath sounds. Scattered rhonchi. HEART: Regular rhythm and rate. Normal S1 and S2. ABDOMEN: Soft. EXTREMITIES: Trace edema. LABORATORY DATA: White count 15.6 and hemoglobin 9.2. Phosphorus 2.3. Potassium 3.6, BUN 15, and creatinine 1.1. Albumin 1.7. IMPRESSION: 1. Sepsis with shock. 2. Status post spine surgery. 3. Respiratory failure, resolving. 4. Severe protein-calorie malnutrition. 5. Hypophosphatemia. 6. Hypomagnesemia, status post replacement therapy. 7. Anemia. 8. Paroxysmal atrial fibrillation. 9. Recovered shock. 10. Rhabdomyolysis, improved. 11. Acute renal failure, resolved. PLAN: 1. Antibiotics. 2. Respiratory hygiene. 3. Adjust IV fluids. 4. Replace electrolytes and phosphorus if needed. 5. Swallow evaluation pending. 6. Skin care remains critical and guarded. 7. Continue DVT prophylaxis. Praful Stewart M.D. DR: ARUNA JOB#: [id number] CC:
[2017-06-16] MEDS: Morphine Sulfate 2mg/ml Inj IVP PRN ×2 (03:05→17:45)
[2017-06-16 05:45] LABS: EOSINOPHILS % (AUTO) 0.5 % (0.0-3.0); LYMPHOCYTES % (AUTO) 6.7 % (20.0-45.0); MEAN CORPUSCULAR HEMOGLOBIN 31.4 PG (27.0-31.0); MEAN CORPUSCULAR HGB CONC 35.3 G/DL (32.0-36.0); MEAN CORPUSCULAR VOLUME 89 FL (80-99); MEAN PLATELET VOLUME 5.6 FL (6.5-10.1); MONOCYTES % (AUTO) 10.5 % (1.0-10.0); NEUTROPHILS % (AUTO) 81.3 % (45.0-75.0); PLATELET COUNT 188 K/UL (150-450); RED BLOOD COUNT 3.32 M/UL (4.20-5.40); RED CELL DISTRIBUTION WIDTH 13.6 % (11.6-14.8); WHITE BLOOD COUNT 14.1 K/UL (4.8-10.8)
[2017-06-16] MEDS: Piperacillin/Tazobactam 3.375 GM in D5W 110 ML IVPB SCH ×3 (06:00→21:31)
[2017-06-16 06:17] LABS: ALANINE AMINOTRANSFERASE 28 U/L (3-33); ALBUMIN/GLOBULIN RATIO 0.8 (1.0-2.7); ANION GAP 21 (5-15); ASPARTATE AMINO TRANSFERASE 43 U/L (5-40); CARBON DIOXIDE 18 mEQ/L (20-30); CHLORIDE 97 mEQ/L (98-107); CREATININE 0.7 mg/dL (0.5-0.9); HEMOLYSIS 1; POTASSIUM 3.5 mEQ/L (3.4-4.9); SODIUM 136 mEQ/L (135-145); TOTAL PROTEIN 5.1 g/dL (6.6-8.7)
--- NOTE | 2017-06-16 07:54 | Diagnostic Imaging Report ---
APPROVED REPORT CPT Code: 18413 Symptoms Comments: R/O Occlusion Comments Right groin Line BILATERAL: Common femoral artery waveform analysis is within normal limits at rest. Color flow duplex sonography reveals patency of the superficial femoral and popliteal, and tibial arteries. There is no evidence of stenosis or occlusion within these segments. Doppler tibial artery waveform analysis is within normal limits bilaterally.
--- NOTE | 2017-06-16 07:54 | Diagnostic Imaging Report ---
APPROVED REPORT CPT Code: 72926 Present Symptoms Shortness of breath Comments: Right groin Line BILATERAL: Imaging reveals a patent deep venous system bilaterally. There is no evidence of thrombus within the femoral, popliteal or tibial segments. The greater saphenous veins are also within normal limits. Doppler indicates normal spontaneous flow within these segments.
--- NOTE | 2017-06-16 08:08 | General Progress Note ---
Assessment/Plan Problem List: (1) Pneumonia ICD Codes: J18.9 - Pneumonia, unspecified organism SNOMED: 501194263 Qualifiers: Qualified Codes: J18.9 - Pneumonia, unspecified organism (2) Sepsis ICD Codes: A41.9 - Sepsis, unspecified organism SNOMED: 66999713 Qualifiers: Qualified Codes: A41.9 - Sepsis, unspecified organism (3) ZEKE (acute kidney injury) ICD Codes: N17.9 - Acute kidney failure, unspecified SNOMED: 29493600 (4) Altered level of consciousness ICD Codes: R40.4 - Transient alteration of awareness SNOMED: 4363871 (5) respiratory failure, on ventilator (6) septic shock (7) Protein-calorie malnutrition, severe ICD Codes: E43 - Unspecified severe protein-calorie malnutrition SNOMED: 667778475 Status: stable Assessment/Plan ivf monitor fluid status monitor h/h and transfuse prn abx per id dvt/stress ulcer prophylaxis video swallow today resp care/o2 monitor cxr remains guarded d/w Subjective ROS Limited/Unobtainable: Yes Constitutional: Reports: malaise, weakness HEENT: Reports: no symptoms Cardiovascular: Reports: no symptoms Respiratory: Reports: cough, shortness of breath Gastrointestinal/Abdominal: Reports: difficulty swallowing Genitourinary: Reports: no symptoms Neurologic/Psychiatric: Reports: pre-existing deficit Endocrine: Reports: no symptoms Hematologic/Lymphatic: Reports: anemia Allergies: Coded Allergies: No Known Allergies (Unverified , 06/10/17) All Systems: reviewed and negative except above Subjective no events. resting. smiles. follows simple commands. video swallow study scheduled for today. low grade temp. wbc remains elevated. Objective Last 24 Hour Vital Signs Date Time Temp Pulse Resp B/P Pulse Ox O2 Delivery O2 Flow Rate FiO2 06/16/17 04:00 99.5 90 24 152/74 99 Nasal Cannula 4.0 06/16/17 04:00 110 06/16/17 00:00 101 06/16/17 00:00 99.1 102 20 155/76 95 Nasal Cannula 4.0 06/15/17 20:00 99.0 96 20 130/82 95 Nasal Cannula 3.0 06/15/17 19:39 116 06/15/17 19:22 Nasal Cannula 2.0 28 06/15/17 19:22 97 Nasal Cannula 2.0 28 06/15/17 16:00 96 06/15/17 16:00 98.9 92 19 153/85 95 Nasal Cannula 3.0 06/15/17 13:31 98.4 06/15/17 12:00 98.4 84 20 148/78 95 Nasal Cannula 3.0 06/15/17 12:00 89 Intake and Output 06/15/17 06/16/17 19:00 07:00 Intake Total 1495.000 ml 100 ml Output Total 1800 ml Balance -305.000 ml 100 ml IV Total 1495.000 ml 100 ml Output Urine Total 1800 ml # Bowel Movements 1 Laboratory Tests 06/16/17 03:30: Phosphorus Level 2.8 06/16/17 03:50: White Blood Count 14.1H, Red Blood Count 3.32L, Hemoglobin 10.4L, Hematocrit 29.5L, Mean Corpuscular Volume 89, Mean Corpuscular Hemoglobin 31.4H, Mean Corpuscular Hemoglobin Concent 35.3, Red Cell Distribution Width 13.6, Platelet Count 188, Mean Platelet Volume 5.6L, Neutrophils (%) (Auto) 81.3H, Lymphocytes (%) (Auto) 6.7L, Monocytes (%) (Auto) 10.5H, Eosinophils (%) (Auto) 0.5, Basophils (%) (Auto) 1.0, Sodium Level 136, Potassium Level 3.5, Chloride Level 97L, Carbon Dioxide Level 18L, Anion Gap 21H, Blood Urea Nitrogen 12, Creatinine 0.7, Estimat Glomerular Filtration Rate , Glucose Level 93, Calcium Level 8.0L, Total Bilirubin 0.7, Aspartate Amino Transf (AST/SGOT) 43H, Alanine Aminotransferase (ALT/SGPT) 28, Alkaline Phosphatase 114H, Total Protein 5.1L, Albumin 2.3L, Globulin 2.8, Albumin/Globulin Ratio 0.8L Height (Feet): 5 Height (Inches): 8.00 Weight (Pounds): 155 Objective General Appearance: WD/WN, alert. follows commands Neck: supple Cardiovascular: regular rhythm Respiratory/Chest: few rhonchi - bilaterally Abdomen: normal bowel sounds, non tender, soft, no organomegaly Edema: mild edema Neurologic: responsive, disoriented Skin: normal pigmentation JAMES PARKER Jun 16, 2017 08:08
--- NOTE | 2017-06-16 08:26 | Critical Care Progress Note ---
Assessment/Plan Assessment/Plan respiratory failure- extubated shock- now stable possible sepsis leukocytosis protein calorie malnutrition elevated CK possible rhabdo post spine surgery acute encephalopathy- improved ARF with oliguria, improved hypotension improved ?TRALI PLAN monitor WBC IV antibiotics pending cultures; consider dc respiratory care titrate oxygen improved acid base supportive care suction as needed video swallow pending oxygen therapy as needed all consultants appreciated medications/laboratory data/nursing notes reviewed in detail note reviewed and edited care discussed with RN and RT Critical Care - Subjective Interval Events: stable overall no distress concern with swallowing ROS Limited/Unobtainable: Yes Condition: stable EKG Rhythm: Sinus Rhythm I&O: Intake and Output 06/15/17 06/16/17 19:00 07:00 Intake Total 1495.000 ml 100 ml Output Total 1800 ml Balance -305.000 ml 100 ml IV Total 1495.000 ml 100 ml Output Urine Total 1800 ml # Bowel Movements 1 Critical Care - Objective ET-Tube: 7.5 ET Position: 22 Last 24 Hour Vital Signs Date Time Temp Pulse Resp B/P Pulse Ox O2 Delivery O2 Flow Rate FiO2 06/16/17 04:00 99.5 90 24 152/74 99 Nasal Cannula 4.0 06/16/17 04:00 110 06/16/17 00:00 101 06/16/17 00:00 99.1 102 20 155/76 95 Nasal Cannula 4.0 06/15/17 20:00 99.0 96 20 130/82 95 Nasal Cannula 3.0 06/15/17 19:39 116 06/15/17 19:22 Nasal Cannula 2.0 28 06/15/17 19:22 97 Nasal Cannula 2.0 28 06/15/17 16:00 96 06/15/17 16:00 98.9 92 19 153/85 95 Nasal Cannula 3.0 06/15/17 13:31 98.4 06/15/17 12:00 98.4 84 20 148/78 95 Nasal Cannula 3.0 06/15/17 12:00 89 Labs: Labs Test 06/13/17 08:56 06/13/17 12:15 06/13/17 20:00 06/14/17 05:00 Arterial Blood pH 7.514 (7.350-7.450) 7.476 (7.350-7.450) Arterial Blood Partial Pressure CO2 25.7 mmHg (35.0-45.0) 29.9 mmHg (35.0-45.0) Arterial Blood Partial Pressure O2 110.5 mmHg (75.0-100.0) 101.1 mmHg (75.0-100.0) Arterial Blood HCO3 20.2 mmol/L (22.0-26.0) 21.6 mmol/L (22.0-26.0) Arterial Blood Oxygen Saturation 97.2 % (92.0-98.0) 97.2 % (92.0-98.0) Arterial Blood Base Excess -2.5 -1.8 Quirino Test Positive Positive White Blood Count 16.6 K/UL (4.8-10.8) 15.6 K/UL (4.8-10.8) Red Blood Count 3.05 M/UL (4.20-5.40) 2.98 M/UL (4.20-5.40) Hemoglobin 9.7 G/DL (12.0-16.0) 9.2 G/DL (12.0-16.0) Hematocrit 26.8 % (37.0-47.0) 26.5 % (37.0-47.0) Mean Corpuscular Volume 88 FL (80-99) 89 FL (80-99) Mean Corpuscular Hemoglobin 31.8 PG (27.0-31.0) 30.9 PG (27.0-31.0) Mean Corpuscular Hemoglobin Concent 36.2 G/DL (32.0-36.0) 34.9 G/DL (32.0-36.0) Red Cell Distribution Width 13.4 % (11.6-14.8) 13.6 % (11.6-14.8) Platelet Count 93 K/UL (150-450) 81 K/UL (150-450) Mean Platelet Volume 7.7 FL (6.5-10.1) 5.9 FL (6.5-10.1) Neutrophils (%) (Auto) 87.8 % (45.0-75.0) % (45.0-75.0) Lymphocytes (%) (Auto) 6.2 % (20.0-45.0) % (20.0-45.0) Monocytes (%) (Auto) 5.1 % (1.0-10.0) % (1.0-10.0) Eosinophils (%) (Auto) 0.3 % (0.0-3.0) % (0.0-3.0) Basophils (%) (Auto) 0.6 % (0.0-2.0) % (0.0-2.0) Differential Total Cells Counted 100 Neutrophils % (Manual) 87 % (45-75) Lymphocytes % (Manual) 6 % (20-45) Monocytes % (Manual) 4 % (1-10) Eosinophils % (Manual) 0 % (0-3) Basophils % (Manual) 0 % (0-2) Band Neutrophils 3 % (0-8) Platelet Estimate Decreased Platelet Morphology Normal Polychromasia Occasional Hypochromasia 1+ Sodium Level 135 mEQ/L (135-145) Potassium Level 3.6 mEQ/L (3.4-4.9) Chloride Level 99 mEQ/L (98-107) Carbon Dioxide Level 20 mEQ/L (20-30) Anion Gap 16 (5-15) Blood Urea Nitrogen 15 mg/dL (7-23) Creatinine 1.1 mg/dL (0.5-0.9) Estimat Glomerular Filtration Rate mL/min (>60) Glucose Level 317 mg/dL (74-106) Calcium Level 6.1 mg/dL (8.6-10.2) Phosphorus Level 2.3 mg/dL (2.5-4.8) Magnesium Level 1.9 mg/dL (1.7-2.5) Total Bilirubin 0.4 mg/dL (0.0-1.2) Aspartate Amino Transf (AST/SGOT) 61 U/L (5-40) Alanine Aminotransferase (ALT/SGPT) 36 U/L (3-33) Alkaline Phosphatase 69 U/L (35-104) Total Protein 4.1 g/dL (6.6-8.7) Albumin 1.7 g/dL (3.5-5.2) Globulin 2.4 g/dL Albumin/Globulin Ratio 0.7 (1.0-2.7) Random Vancomycin Level 9.6 ug/mL Test 06/14/17 18:20 06/16/17 03:30 06/16/17 03:50 Stool Occult Blood Negative (NEGATIVE) Phosphorus Level 2.8 mg/dL (2.5-4.8) White Blood Count 14.1 K/UL (4.8-10.8) Red Blood Count 3.32 M/UL (4.20-5.40) Hemoglobin 10.4 G/DL (12.0-16.0) Hematocrit 29.5 % (37.0-47.0) Mean Corpuscular Volume 89 FL (80-99) Mean Corpuscular Hemoglobin 31.4 PG (27.0-31.0) Mean Corpuscular Hemoglobin Concent 35.3 G/DL (32.0-36.0) Red Cell Distribution Width 13.6 % (11.6-14.8) Platelet Count 188 K/UL (150-450) Mean Platelet Volume 5.6 FL (6.5-10.1) Neutrophils (%) (Auto) 81.3 % (45.0-75.0) Lymphocytes (%) (Auto) 6.7 % (20.0-45.0) Monocytes (%) (Auto) 10.5 % (1.0-10.0) Eosinophils (%) (Auto) 0.5 % (0.0-3.0) Basophils (%) (Auto) 1.0 % (0.0-2.0) Sodium Level 136 mEQ/L (135-145) Potassium Level 3.5 mEQ/L (3.4-4.9) Chloride Level 97 mEQ/L (98-107) Carbon Dioxide Level 18 mEQ/L (20-30) Anion Gap 21 (5-15) Blood Urea Nitrogen 12 mg/dL (7-23) Creatinine 0.7 mg/dL (0.5-0.9) Estimat Glomerular Filtration Rate mL/min (>60) Glucose Level 93 mg/dL (74-106) Calcium Level 8.0 mg/dL (8.6-10.2) Total Bilirubin 0.7 mg/dL (0.0-1.2) Aspartate Amino Transf (AST/SGOT) 43 U/L (5-40) Alanine Aminotransferase (ALT/SGPT) 28 U/L (3-33) Alkaline Phosphatase 114 U/L (35-104) Total Protein 5.1 g/dL (6.6-8.7) Albumin 2.3 g/dL (3.5-5.2) Globulin 2.8 g/dL Albumin/Globulin Ratio 0.8 (1.0-2.7) Objective: WDWN NAD alert reduced breath sounds bilaterally with some rhonchi S1S2 RRR without MRG noted bowel sounds, nontender no HSM no CC; trace edema nonfocal awake HV out reviewed and edited Accucheck: 167 MARISABEL CISNEROS Jun 16, 2017 08:26
[2017-06-16] MEDS: Potassium Phosphate 20 MEQ in 1/2 NS 1000ml 1,000 ML IV SCH ×2 (08:41→17:55)
[2017-06-16] MEDS: Pantoprazole Inj IVP SCH ×2 (08:42→21:29)
--- NOTE | 2017-06-16 09:33 | General Progress Note ---
Assessment/Plan Assessment/Plan 1. Thrombocytopenia potentially secondary to underlying sepsis. --> continue to monitor 2. Anemia secondary to bleed, drainage from surgical site wound --> monitor, hgb goal above 7 --> s/p blood transfusion, consent from 3. Decreased hemoglobin and hematocrit, rule out gastrointestinal bleed. ---> OB is negative 4. Potential transfusion reaction. --> not noted in review of record 5. Respiratory Failure --> intubated, on a vent --> now extubated 6. Altered mental status. 7. Sepsis. 8. Leukocytosis. 9. Rhabdomyolysis. 10. Cerebrovascular accident. 11. Acute kidney injury. 12. Status post spine surgery Subjective Date patient seen: Jun 15, 2017 Constitutional: Reports: no symptoms HEENT: Reports: no symptoms Cardiovascular: Reports: no symptoms Respiratory: Reports: no symptoms Gastrointestinal/Abdominal: Reports: no symptoms Genitourinary: Reports: no symptoms Neurologic/Psychiatric: Reports: no symptoms Endocrine: Reports: no symptoms Hematologic/Lymphatic: Reports: no symptoms Allergies: Coded Allergies: No Known Allergies (Unverified , 06/10/17) Subjective pt appears comfortable Objective Last 24 Hour Vital Signs Date Time Temp Pulse Resp B/P Pulse Ox O2 Delivery O2 Flow Rate FiO2 06/16/17 04:00 99.5 90 24 152/74 99 Nasal Cannula 4.0 06/16/17 04:00 110 06/16/17 00:00 101 06/16/17 00:00 99.1 102 20 155/76 95 Nasal Cannula 4.0 06/15/17 20:00 99.0 96 20 130/82 95 Nasal Cannula 3.0 06/15/17 19:39 116 06/15/17 19:22 Nasal Cannula 2.0 28 06/15/17 19:22 97 Nasal Cannula 2.0 28 06/15/17 16:00 96 06/15/17 16:00 98.9 92 19 153/85 95 Nasal Cannula 3.0 06/15/17 13:31 98.4 06/15/17 12:00 98.4 84 20 148/78 95 Nasal Cannula 3.0 06/15/17 12:00 89 Intake and Output 06/15/17 06/16/17 19:00 07:00 Intake Total 1495.000 ml 100 ml Output Total 1800 ml Balance -305.000 ml 100 ml IV Total 1495.000 ml 100 ml Output Urine Total 1800 ml # Bowel Movements 1 Laboratory Tests 06/16/17 03:30: Phosphorus Level 2.8 06/16/17 03:50: White Blood Count 14.1H, Red Blood Count 3.32L, Hemoglobin 10.4L, Hematocrit 29.5L, Mean Corpuscular Volume 89, Mean Corpuscular Hemoglobin 31.4H, Mean Corpuscular Hemoglobin Concent 35.3, Red Cell Distribution Width 13.6, Platelet Count 188, Mean Platelet Volume 5.6L, Neutrophils (%) (Auto) 81.3H, Lymphocytes (%) (Auto) 6.7L, Monocytes (%) (Auto) 10.5H, Eosinophils (%) (Auto) 0.5, Basophils (%) (Auto) 1.0, Sodium Level 136, Potassium Level 3.5, Chloride Level 97L, Carbon Dioxide Level 18L, Anion Gap 21H, Blood Urea Nitrogen 12, Creatinine 0.7, Estimat Glomerular Filtration Rate , Glucose Level 93, Calcium Level 8.0L, Total Bilirubin 0.7, Aspartate Amino Transf (AST/SGOT) 43H, Alanine Aminotransferase (ALT/SGPT) 28, Alkaline Phosphatase 114H, Total Protein 5.1L, Albumin 2.3L, Globulin 2.8, Albumin/Globulin Ratio 0.8L Height (Feet): 5 Height (Inches): 8.00 Weight (Pounds): 155 General Appearance: no apparent distress EENT: PERRL/EOMI Neck: non-tender Cardiovascular: normal peripheral pulses Respiratory/Chest: chest wall non-tender Abdomen: non tender Extremities: non-tender Edema: no edema noted Pedal (L), no edema noted Pedal (R) 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
[2017-06-16] MEDS: Vancomycin 750 MG in D5W 275 ML IVPB SCH (10:22)
--- NOTE | 2017-06-16 11:48 | Infectious Diseases Prog Note ---
Assessment/Plan Assessment/Plan antibiotics : vancomycin iv, zosyn A 1. leucocytosis improving 2. respiratory failure resolved 3. renal failure improving 4. pleural effusion 5. ? pneumonia P 1. continue vancomycin iv, zosyn 2. will follow up cultures Subjective ROS Limited/Unobtainable: Yes Allergies: Coded Allergies: No Known Allergies (Unverified , 06/10/17) Objective Vital Signs Last 24 Hour Vital Signs Date Time Temp Pulse Resp B/P Pulse Ox O2 Delivery O2 Flow Rate FiO2 06/16/17 09:10 156/71 06/16/17 08:00 99.8 105 20 163/81 96 Nasal Cannula 3.0 06/16/17 07:45 108 06/16/17 04:00 99.5 90 24 152/74 99 Nasal Cannula 4.0 06/16/17 04:00 110 06/16/17 00:00 101 06/16/17 00:00 99.1 102 20 155/76 95 Nasal Cannula 4.0 06/15/17 20:00 99.0 96 20 130/82 95 Nasal Cannula 3.0 06/15/17 19:39 116 06/15/17 19:22 Nasal Cannula 2.0 28 06/15/17 19:22 97 Nasal Cannula 2.0 28 06/15/17 16:00 96 06/15/17 16:00 98.9 92 19 153/85 95 Nasal Cannula 3.0 06/15/17 13:31 98.4 06/15/17 12:00 98.4 84 20 148/78 95 Nasal Cannula 3.0 06/15/17 12:00 89 Height (Feet): 5 Height (Inches): 8.00 Weight (Pounds): 155 Respiratory/Chest: lungs clear Cardiovascular: normal rate, regular rhythm, no gallop/murmur Abdomen: soft, non tender Extremities: other - + edema Laboratory Tests Test 06/16/17 03:30 06/16/17 03:50 Phosphorus Level 2.8 mg/dL (2.5-4.8) White Blood Count 14.1 K/UL (4.8-10.8) H Red Blood Count 3.32 M/UL (4.20-5.40) L Hemoglobin 10.4 G/DL (12.0-16.0) L Hematocrit 29.5 % (37.0-47.0) L Mean Corpuscular Volume 89 FL (80-99) Mean Corpuscular Hemoglobin 31.4 PG (27.0-31.0) H Mean Corpuscular Hemoglobin Concent 35.3 G/DL (32.0-36.0) Red Cell Distribution Width 13.6 % (11.6-14.8) Platelet Count 188 K/UL (150-450) Mean Platelet Volume 5.6 FL (6.5-10.1) L Neutrophils (%) (Auto) 81.3 % (45.0-75.0) H Lymphocytes (%) (Auto) 6.7 % (20.0-45.0) L Monocytes (%) (Auto) 10.5 % (1.0-10.0) H Eosinophils (%) (Auto) 0.5 % (0.0-3.0) Basophils (%) (Auto) 1.0 % (0.0-2.0) Sodium Level 136 mEQ/L (135-145) Potassium Level 3.5 mEQ/L (3.4-4.9) Chloride Level 97 mEQ/L (98-107) L Carbon Dioxide Level 18 mEQ/L (20-30) L Anion Gap 21 (5-15) H Blood Urea Nitrogen 12 mg/dL (7-23) Creatinine 0.7 mg/dL (0.5-0.9) Estimat Glomerular Filtration Rate mL/min (>60) Glucose Level 93 mg/dL (74-106) Calcium Level 8.0 mg/dL (8.6-10.2) L Total Bilirubin 0.7 mg/dL (0.0-1.2) Aspartate Amino Transf (AST/SGOT) 43 U/L (5-40) H Alanine Aminotransferase (ALT/SGPT) 28 U/L (3-33) Alkaline Phosphatase 114 U/L (35-104) H Total Protein 5.1 g/dL (6.6-8.7) L Albumin 2.3 g/dL (3.5-5.2) L Globulin 2.8 g/dL Albumin/Globulin Ratio 0.8 (1.0-2.7) L EARLENE BANKS Jun 16, 2017 11:48
--- NOTE | 2017-06-16 19:01 | General Progress Note ---
Assessment/Plan Assessment/Plan 1. Thrombocytopenia potentially secondary to underlying sepsis. --> continue to monitor --> plt count is now back to wnl 2. Anemia secondary to bleed, drainage from surgical site wound --> monitor, hgb goal above 7 --> s/p blood transfusion, consent from 3. Decreased hemoglobin and hematocrit, rule out gastrointestinal bleed. ---> OB is negative 4. Potential transfusion reaction. --> not noted in review of record 5. Respiratory Failure --> intubated, on a vent --> now extubated 6. Altered mental status. 7. Sepsis. --> see ID recs 8. Leukocytosis. 9. Rhabdomyolysis. 10. Cerebrovascular accident. 11. Acute kidney injury. 12. Status post spine surgery Subjective Constitutional: Reports: no symptoms HEENT: Reports: no symptoms Cardiovascular: Reports: no symptoms Respiratory: Reports: no symptoms Gastrointestinal/Abdominal: Reports: no symptoms Genitourinary: Reports: no symptoms Neurologic/Psychiatric: Reports: no symptoms Endocrine: Reports: no symptoms Hematologic/Lymphatic: Reports: no symptoms Allergies: Coded Allergies: No Known Allergies (Unverified , 06/10/17) Subjective hgb better, NAD, dc planning currently Objective Last 24 Hour Vital Signs Date Time Temp Pulse Resp B/P Pulse Ox O2 Delivery O2 Flow Rate FiO2 06/16/17 16:00 99.0 101 21 157/78 94 Nasal Cannula 36.0 06/16/17 15:16 106 06/16/17 12:00 101 06/16/17 12:00 99.1 87 21 159/77 95 Nasal Cannula 3.0 06/16/17 09:10 156/71 06/16/17 08:00 99.8 105 20 163/81 96 Nasal Cannula 3.0 06/16/17 07:45 108 06/16/17 07:41 Nasal Cannula 2.0 28 06/16/17 07:40 96 Nasal Cannula 2.0 28 06/16/17 04:00 99.5 90 24 152/74 99 Nasal Cannula 4.0 06/16/17 04:00 110 06/16/17 00:00 101 06/16/17 00:00 99.1 102 20 155/76 95 Nasal Cannula 4.0 06/15/17 20:00 99.0 96 20 130/82 95 Nasal Cannula 3.0 06/15/17 19:39 116 06/15/17 19:22 Nasal Cannula 2.0 28 06/15/17 19:22 97 Nasal Cannula 2.0 28 Intake and Output 06/15/17 06/16/17 19:00 07:00 Intake Total 1495.000 ml 127.5 ml Output Total 1800 ml Balance -305.000 ml 127.5 ml IV Total 1495.000 ml 127.5 ml Output Urine Total 1800 ml # Bowel Movements 1 Laboratory Tests 06/16/17 03:30: Phosphorus Level 2.8 06/16/17 03:50: White Blood Count 14.1H, Red Blood Count 3.32L, Hemoglobin 10.4L, Hematocrit 29.5L, Mean Corpuscular Volume 89, Mean Corpuscular Hemoglobin 31.4H, Mean Corpuscular Hemoglobin Concent 35.3, Red Cell Distribution Width 13.6, Platelet Count 188, Mean Platelet Volume 5.6L, Neutrophils (%) (Auto) 81.3H, Lymphocytes (%) (Auto) 6.7L, Monocytes (%) (Auto) 10.5H, Eosinophils (%) (Auto) 0.5, Basophils (%) (Auto) 1.0, Sodium Level 136, Potassium Level 3.5, Chloride Level 97L, Carbon Dioxide Level 18L, Anion Gap 21H, Blood Urea Nitrogen 12, Creatinine 0.7, Estimat Glomerular Filtration Rate , Glucose Level 93, Calcium Level 8.0L, Total Bilirubin 0.7, Aspartate Amino Transf (AST/SGOT) 43H, Alanine Aminotransferase (ALT/SGPT) 28, Alkaline Phosphatase 114H, Total Protein 5.1L, Albumin 2.3L, Globulin 2.8, Albumin/Globulin Ratio 0.8L Height (Feet): 5 Height (Inches): 8.00 Weight (Pounds): 155 General Appearance: no apparent distress EENT: normal ENT inspection Neck: normal alignment Cardiovascular: normal peripheral pulses Respiratory/Chest: chest wall non-tender Abdomen: non tender Extremities: non-tender Edema: no edema noted Pedal (L), no edema noted Pedal (R) 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
[2017-06-16] MEDS: Dyna-Hex 2% Top Sol 8oz TOPIC SCH (21:29)
[2017-06-17 00:41] VITALS: BP 148/88
--- NOTE | 2017-06-17 02:30 | Progress Note ---
DATE: 06/16/2017 CARDIOLOGY PROGRESS NOTE: SUBJECTIVE: The patient remains off pressors, extubated for almost 48 hours and in no distress. Still requiring aggressive respiratory hygiene due to moderate secretions, still NPO due to dysphagia. OBJECTIVE: VITAL SIGNS: Blood pressure is 152/74, pulse 90, respiratory rate 24, and temperature 99.5 degrees. HEENT: Dry mucous membranes. LUNGS: Coarse breath sounds. Scattered rhonchi. HEART: Regular rhythm and rate. Normal S1 and S2. ABDOMEN: Soft. EXTREMITIES: No edema. LABORATORY DATA: White count is 14 and hemoglobin 10.4. Sodium is 136, potassium 3.5, bicarbonate 18, BUN 12, and creatinine 0.7. Albumin is 2.3. Phosphorus is 2.8. IMPRESSION: 1. Status post respiratory failure. 2. Aspiration pneumonia. 3. Sepsis with shock, recovered. 4. Severe protein-calorie malnutrition. 5. Metabolic acidosis. 6. Severe anemia, status post transfusion. 7. Paroxysmal atrial fibrillation, now resolved. PLAN: 1. Antibiotic. 2. Nasal oxygen. 3. Respiratory hygiene. 4. Monitor hemoglobin. 5. Nutritional support by feeding tube. 6. Swallow evaluation. 7. Continue on cardiac monitoring. 8. Hold antiarrhythmics. Praful Stewart M.D. DR: John JOB#: [id number] CC:
[2017-06-17 04:00] VITALS: BP 142/69
[2017-06-17] MEDS: Potassium Phosphate 20 MEQ in 1/2 NS 1000ml 1,000 ML IV SCH (04:53)
[2017-06-17] MEDS: Piperacillin/Tazobactam 3.375 GM in D5W 110 ML IVPB SCH ×3 (05:39→21:08)
[2017-06-17 06:23] LABS: BASOPHILS % (AUTO) 1.4 % (0.0-2.0); EOSINOPHILS % (AUTO) 0.7 % (0.0-3.0); LYMPHOCYTES % (AUTO) 7.3 % (20.0-45.0); MEAN CORPUSCULAR HEMOGLOBIN 30.9 PG (27.0-31.0); MEAN CORPUSCULAR HGB CONC 33.8 G/DL (32.0-36.0); MEAN CORPUSCULAR VOLUME 91 FL (80-99); MEAN PLATELET VOLUME 5.7 FL (6.5-10.1); MONOCYTES % (AUTO) 9.2 % (1.0-10.0); NEUTROPHILS % (AUTO) 81.4 % (45.0-75.0); PLATELET COUNT 117 K/UL (150-450); RED CELL DISTRIBUTION WIDTH 15.3 % (11.6-14.8); WHITE BLOOD COUNT 12.8 K/UL (4.8-10.8)
[2017-06-17 06:54] LABS: ALANINE AMINOTRANSFERASE 28 U/L (3-33); ALBUMIN/GLOBULIN RATIO 0.7 (1.0-2.7); ANION GAP 16 (5-15); ASPARTATE AMINO TRANSFERASE 42 U/L (5-40); CALCIUM 7.4 mg/dL (8.6-10.2); CARBON DIOXIDE 17 mEQ/L (20-30); CHLORIDE 98 mEQ/L (98-107); CREATININE 0.7 mg/dL (0.5-0.9); HEMOLYSIS 32; POTASSIUM 3.5 mEQ/L (3.4-4.9); SODIUM 131 mEQ/L (135-145); TOTAL PROTEIN 4.6 g/dL (6.6-8.7)
[2017-06-17 08:00] VITALS: BP 145/100
--- NOTE | 2017-06-17 08:03 | General Progress Note ---
Assessment/Plan Problem List: (1) Pneumonia ICD Codes: J18.9 - Pneumonia, unspecified organism SNOMED: 761726657 Qualifiers: Qualified Codes: J18.9 - Pneumonia, unspecified organism (2) Sepsis ICD Codes: A41.9 - Sepsis, unspecified organism SNOMED: 26501752 Qualifiers: Qualified Codes: A41.9 - Sepsis, unspecified organism (3) ZEKE (acute kidney injury) ICD Codes: N17.9 - Acute kidney failure, unspecified SNOMED: 23510698 (4) Altered level of consciousness ICD Codes: R40.4 - Transient alteration of awareness SNOMED: 4403296 (5) respiratory failure, on ventilator (6) septic shock (7) Protein-calorie malnutrition, severe ICD Codes: E43 - Unspecified severe protein-calorie malnutrition SNOMED: 572878026 Status: stable, unchanged Assessment/Plan ivf adusted monitor fluid status monitor h/h and transfuse prn abx per id dvt/stress ulcer prophylaxis retry video swallow today resp care/o2 monitor cxr remains guarded d/w Subjective ROS Limited/Unobtainable: Yes Constitutional: Reports: malaise, weakness HEENT: Reports: no symptoms Cardiovascular: Reports: no symptoms Respiratory: Reports: cough Gastrointestinal/Abdominal: Reports: difficulty swallowing Genitourinary: Reports: no symptoms Neurologic/Psychiatric: Reports: pre-existing deficit Endocrine: Reports: no symptoms Hematologic/Lymphatic: Reports: anemia Allergies: Coded Allergies: No Known Allergies (Unverified , 06/10/17) All Systems: reviewed and negative except above Subjective no events. resting. smiles. follows simple commands. unable to cooperate with video swallow yesterday Objective Last 24 Hour Vital Signs Date Time Temp Pulse Resp B/P Pulse Ox O2 Delivery O2 Flow Rate FiO2 06/17/17 04:00 97.9 92 19 142/69 94 Nasal Cannula 2.0 06/17/17 04:00 89 06/17/17 00:41 98.1 100 18 148/88 95 Nasal Cannula 2.0 06/17/17 00:00 89 06/16/17 20:19 97.9 102 19 153/93 96 Nasal Cannula 2.0 06/16/17 20:00 128 06/16/17 19:41 Nasal Cannula 3.0 32 06/16/17 19:40 92 Nasal Cannula 3.0 32 06/16/17 16:00 99.0 101 21 157/78 94 Nasal Cannula 36.0 06/16/17 15:16 106 06/16/17 12:00 101 06/16/17 12:00 99.1 87 21 159/77 95 Nasal Cannula 3.0 06/16/17 09:10 156/71 Intake and Output 06/16/17 06/17/17 19:00 07:00 Intake Total 1108.830 ml 1320.8 ml Output Total 1375 ml 1500 ml Balance -266.170 ml -179.2 ml IV Total 1108.830 ml 1320.8 ml Output Urine Total 1375 ml 1500 ml Laboratory Tests 06/17/17 05:30: White Blood Count 12.8H, Red Blood Count 3.40L, Hemoglobin 10.5L, Hematocrit 31.0L, Mean Corpuscular Volume 91, Mean Corpuscular Hemoglobin 30.9, Mean Corpuscular Hemoglobin Concent 33.8, Red Cell Distribution Width 15.3H, Platelet Count 117L, Mean Platelet Volume 5.7L, Neutrophils (%) (Auto) 81.4H, Lymphocytes (%) (Auto) 7.3L, Monocytes (%) (Auto) 9.2, Eosinophils (%) (Auto) 0.7, Basophils (%) (Auto) 1.4, Sodium Level 131L, Potassium Level 3.5, Chloride Level 98, Carbon Dioxide Level 17L, Anion Gap 16H, Blood Urea Nitrogen 12, Creatinine 0.7, Estimat Glomerular Filtration Rate , Glucose Level 87, Calcium Level 7.4L, Total Bilirubin 0.6, Aspartate Amino Transf (AST/SGOT) 42H, Alanine Aminotransferase (ALT/SGPT) 28, Alkaline Phosphatase 79, Total Protein 4.6L, Albumin 1.9L, Globulin 2.7, Albumin/Globulin Ratio 0.7L Height (Feet): 5 Height (Inches): 8.00 Weight (Pounds): 184 Objective General Appearance: WD/WN, alert. follows commands Neck: supple Cardiovascular: regular rhythm Respiratory/Chest: few rhonchi - bilaterally Abdomen: normal bowel sounds, non tender, soft, no organomegaly Edema: mild edema Neurologic: responsive, disoriented Skin: normal pigmentation JAMES PARKER Jun 17, 2017 08:03
[2017-06-17] MEDS: Pantoprazole Inj IVP SCH ×2 (08:18→20:58)
[2017-06-17] MEDS: D5NS 1,000 ML IV SCH ×2 (08:19→20:59)
--- NOTE | 2017-06-17 08:47 | Critical Care Progress Note ---
Assessment/Plan Assessment/Plan respiratory failure- extubated shock- now stable possible sepsis leukocytosis protein calorie malnutrition elevated CK possible rhabdo post spine surgery acute encephalopathy- improved ARF with oliguria, improved hypotension improved ?TRALI PLAN monitor WBC IV antibiotics ? dc respiratory care titrate oxygen to off improved acid base supportive care suction as needed await further swallow recommendations oxygen therapy as needed dc to snf today pending speech medications/laboratory data/nursing notes reviewed in detail note reviewed and edited care discussed with RN and RT Critical Care - Subjective Interval Events: stable at present awaiting final swallow recommendations ROS Limited/Unobtainable: Yes Condition: stable EKG Rhythm: Sinus Rhythm I&O: Intake and Output 06/16/17 06/17/17 19:00 07:00 Intake Total 1108.830 ml 1320.8 ml Output Total 1375 ml 1500 ml Balance -266.170 ml -179.2 ml IV Total 1108.830 ml 1320.8 ml Output Urine Total 1375 ml 1500 ml Critical Care - Objective ET-Tube: 7.5 ET Position: 22 Last 24 Hour Vital Signs Date Time Temp Pulse Resp B/P Pulse Ox O2 Delivery O2 Flow Rate FiO2 06/17/17 08:00 97.5 101 21 145/100 96 Nasal Cannula 3.0 06/17/17 07:33 97 06/17/17 04:00 97.9 92 19 142/69 94 Nasal Cannula 2.0 06/17/17 04:00 89 06/17/17 00:41 98.1 100 18 148/88 95 Nasal Cannula 2.0 06/17/17 00:00 89 06/16/17 20:19 97.9 102 19 153/93 96 Nasal Cannula 2.0 06/16/17 20:00 128 06/16/17 19:41 Nasal Cannula 3.0 32 06/16/17 19:40 92 Nasal Cannula 3.0 32 06/16/17 16:00 99.0 101 21 157/78 94 Nasal Cannula 36.0 06/16/17 15:16 106 06/16/17 12:00 101 06/16/17 12:00 99.1 87 21 159/77 95 Nasal Cannula 3.0 06/16/17 09:10 156/71 Labs: Laboratory Tests Test 06/17/17 05:30 White Blood Count 12.8 K/UL (4.8-10.8) H Red Blood Count 3.40 M/UL (4.20-5.40) L Hemoglobin 10.5 G/DL (12.0-16.0) L Hematocrit 31.0 % (37.0-47.0) L Mean Corpuscular Volume 91 FL (80-99) Mean Corpuscular Hemoglobin 30.9 PG (27.0-31.0) Mean Corpuscular Hemoglobin Concent 33.8 G/DL (32.0-36.0) Red Cell Distribution Width 15.3 % (11.6-14.8) H Platelet Count 117 K/UL (150-450) L Mean Platelet Volume 5.7 FL (6.5-10.1) L Neutrophils (%) (Auto) 81.4 % (45.0-75.0) H Lymphocytes (%) (Auto) 7.3 % (20.0-45.0) L Monocytes (%) (Auto) 9.2 % (1.0-10.0) Eosinophils (%) (Auto) 0.7 % (0.0-3.0) Basophils (%) (Auto) 1.4 % (0.0-2.0) Sodium Level 131 mEQ/L (135-145) L Potassium Level 3.5 mEQ/L (3.4-4.9) Chloride Level 98 mEQ/L (98-107) Carbon Dioxide Level 17 mEQ/L (20-30) L Anion Gap 16 (5-15) H Blood Urea Nitrogen 12 mg/dL (7-23) Creatinine 0.7 mg/dL (0.5-0.9) Estimat Glomerular Filtration Rate mL/min (>60) Glucose Level 87 mg/dL (74-106) Calcium Level 7.4 mg/dL (8.6-10.2) L Total Bilirubin 0.6 mg/dL (0.0-1.2) Aspartate Amino Transf (AST/SGOT) 42 U/L (5-40) H Alanine Aminotransferase (ALT/SGPT) 28 U/L (3-33) Alkaline Phosphatase 79 U/L (35-104) Total Protein 4.6 g/dL (6.6-8.7) L Albumin 1.9 g/dL (3.5-5.2) L Globulin 2.7 g/dL Albumin/Globulin Ratio 0.7 (1.0-2.7) L Objective: WDWN NAD alert stable breath sounds bilaterally with some rhonchi S1S2 RRR without MRG noted bowel sounds, nontender no HSM no CC; trace edema nonfocal awake reviewed and edited Accucheck: 167 MARISABEL CISNEROS Jun 17, 2017 08:47
--- NOTE | 2017-06-17 10:12 | Infectious Diseases Prog Note ---
Assessment/Plan Assessment/Plan A; Sepsis/ SIRS Postprocedural respiratory failure Severe anemia Acute renal failure resolved Dysphagia P; continue Zosyn & Vancomycin Subjective ROS Limited/Unobtainable: Yes Gastrointestinal/Abdominal: Reports: other - failed swaloowing study Neurologic: Reports: confusion Allergies: Coded Allergies: No Known Allergies (Unverified , 06/10/17) Objective Vital Signs Last 24 Hour Vital Signs Date Time Temp Pulse Resp B/P Pulse Ox O2 Delivery O2 Flow Rate FiO2 06/17/17 08:00 97.5 101 21 145/100 96 Nasal Cannula 3.0 06/17/17 07:33 97 06/17/17 04:00 97.9 92 19 142/69 94 Nasal Cannula 2.0 06/17/17 04:00 89 06/17/17 00:41 98.1 100 18 148/88 95 Nasal Cannula 2.0 06/17/17 00:00 89 06/16/17 20:19 97.9 102 19 153/93 96 Nasal Cannula 2.0 06/16/17 20:00 128 06/16/17 19:41 Nasal Cannula 3.0 32 06/16/17 19:40 92 Nasal Cannula 3.0 32 06/16/17 16:00 99.0 101 21 157/78 94 Nasal Cannula 36.0 06/16/17 15:16 106 06/16/17 12:00 101 06/16/17 12:00 99.1 87 21 159/77 95 Nasal Cannula 3.0 Height (Feet): 5 Height (Inches): 8.00 Weight (Pounds): 184 General Appearance: no acute distress HEENT: mucous membranes moist Respiratory/Chest: lungs clear Cardiovascular: normal rate Abdomen: soft, non tender Extremities: other - edema of leg Neurologic/Psychiatric: alert, responsive, other - dosen't move legs Laboratory Tests Test 06/17/17 05:30 White Blood Count 12.8 K/UL (4.8-10.8) H Red Blood Count 3.40 M/UL (4.20-5.40) L Hemoglobin 10.5 G/DL (12.0-16.0) L Hematocrit 31.0 % (37.0-47.0) L Mean Corpuscular Volume 91 FL (80-99) Mean Corpuscular Hemoglobin 30.9 PG (27.0-31.0) Mean Corpuscular Hemoglobin Concent 33.8 G/DL (32.0-36.0) Red Cell Distribution Width 15.3 % (11.6-14.8) H Platelet Count 117 K/UL (150-450) L Mean Platelet Volume 5.7 FL (6.5-10.1) L Neutrophils (%) (Auto) 81.4 % (45.0-75.0) H Lymphocytes (%) (Auto) 7.3 % (20.0-45.0) L Monocytes (%) (Auto) 9.2 % (1.0-10.0) Eosinophils (%) (Auto) 0.7 % (0.0-3.0) Basophils (%) (Auto) 1.4 % (0.0-2.0) Sodium Level 131 mEQ/L (135-145) L Potassium Level 3.5 mEQ/L (3.4-4.9) Chloride Level 98 mEQ/L (98-107) Carbon Dioxide Level 17 mEQ/L (20-30) L Anion Gap 16 (5-15) H Blood Urea Nitrogen 12 mg/dL (7-23) Creatinine 0.7 mg/dL (0.5-0.9) Estimat Glomerular Filtration Rate mL/min (>60) Glucose Level 87 mg/dL (74-106) Calcium Level 7.4 mg/dL (8.6-10.2) L Total Bilirubin 0.6 mg/dL (0.0-1.2) Aspartate Amino Transf (AST/SGOT) 42 U/L (5-40) H Alanine Aminotransferase (ALT/SGPT) 28 U/L (3-33) Alkaline Phosphatase 79 U/L (35-104) Total Protein 4.6 g/dL (6.6-8.7) L Albumin 1.9 g/dL (3.5-5.2) L Globulin 2.7 g/dL Albumin/Globulin Ratio 0.7 (1.0-2.7) L Current Medications Medications (Trade) Dose Ordered Sig/Josefa Route PRN Reason Start Time Stop Time Status Last Admin Dose Admin Acetaminophen (Tylenol) 650 mg Q4H PRN RECTAL Mild Pain (Pain Scale 1-3) 06/14/17 19:00 07/14/17 18:59 Acetaminophen (Tylenol) 650 mg Q4H PRN RECTAL FEVER OVER 100.5 F 06/14/17 21:45 07/14/17 21:44 Chlorhexidine Gluconate (Andreea-Hex 2%) 1 applic QHS TOPIC 06/14/17 21:00 07/14/17 20:59 06/16/17 21:29 Dextrose/Sodium Chloride (D5ns) 1,000 ml @ 75 mls/hr [id number] IV 06/17/17 08:30 07/17/17 08:29 06/17/17 08:19 Morphine Sulfate (Morphine Sulfate) 1 mg Q4H PRN IVP PAIN 4-10 06/14/17 21:00 06/21/17 20:59 06/16/17 17:45 Pantoprazole 40 mg 40 mg EVERY 12 HOURS IVP 06/14/17 21:00 07/14/17 20:59 06/17/17 08:18 Piperacillin Sod/ Tazobactam Sod/ Dextrose (Zosyn/D5W) 110 ml @ 27.5 mls/hr EVERY 8 HOURS IVPB 06/14/17 22:00 06/19/17 21:59 06/17/17 05:39 RUCHI MERCADO Jun 17, 2017 10:12
[2017-06-17] MEDS ORDERED: Tubing IV Secondary IV ONE (11:38)
[2017-06-17] MEDS ORDERED: D5 1/2NS 1000ml IV ONE (11:38)
[2017-06-17] MEDS: Morphine Sulfate 2mg/ml Inj IVP PRN (11:57)
[2017-06-17 12:00] VITALS: BP 155/101
--- NOTE | 2017-06-17 14:25 | Neurology Progress Note ---
Interim History Interim History ROS Limited/Unobtainable: Yes Complaints: awake Events: more responsive/ limited verbal Objective Physical Exam Last Vital Signs Date Time Temp Pulse Resp B/P Pulse Ox O2 Delivery O2 Flow Rate FiO2 06/17/17 12:00 97.8 85 18 155/101 96 Nasal Cannula 3.0 06/16/17 19:41 32 Laboratory Tests Test 06/17/17 05:30 White Blood Count 12.8 K/UL (4.8-10.8) H Red Blood Count 3.40 M/UL (4.20-5.40) L Hemoglobin 10.5 G/DL (12.0-16.0) L Hematocrit 31.0 % (37.0-47.0) L Mean Corpuscular Volume 91 FL (80-99) Mean Corpuscular Hemoglobin 30.9 PG (27.0-31.0) Mean Corpuscular Hemoglobin Concent 33.8 G/DL (32.0-36.0) Red Cell Distribution Width 15.3 % (11.6-14.8) H Platelet Count 117 K/UL (150-450) L Mean Platelet Volume 5.7 FL (6.5-10.1) L Neutrophils (%) (Auto) 81.4 % (45.0-75.0) H Lymphocytes (%) (Auto) 7.3 % (20.0-45.0) L Monocytes (%) (Auto) 9.2 % (1.0-10.0) Eosinophils (%) (Auto) 0.7 % (0.0-3.0) Basophils (%) (Auto) 1.4 % (0.0-2.0) Sodium Level 131 mEQ/L (135-145) L Potassium Level 3.5 mEQ/L (3.4-4.9) Chloride Level 98 mEQ/L (98-107) Carbon Dioxide Level 17 mEQ/L (20-30) L Anion Gap 16 (5-15) H Blood Urea Nitrogen 12 mg/dL (7-23) Creatinine 0.7 mg/dL (0.5-0.9) Estimat Glomerular Filtration Rate mL/min (>60) Glucose Level 87 mg/dL (74-106) Calcium Level 7.4 mg/dL (8.6-10.2) L Total Bilirubin 0.6 mg/dL (0.0-1.2) Aspartate Amino Transf (AST/SGOT) 42 U/L (5-40) H Alanine Aminotransferase (ALT/SGPT) 28 U/L (3-33) Alkaline Phosphatase 79 U/L (35-104) Total Protein 4.6 g/dL (6.6-8.7) L Albumin 1.9 g/dL (3.5-5.2) L Globulin 2.7 g/dL Albumin/Globulin Ratio 0.7 (1.0-2.7) L General: well developed, no acute distress, other - puffy BLE very painful knees Head: atraumatic Neck: no rigidity Neurologic Exam Mental Status: awake, alert, other - follows simple command repeates it,s painful Speech: no dysarthia Language: other - limited verbal output Cranial Nerve II: fundus normal Cranial Nerves III, IV, : PERRLA, EOMI Cranial Nerve V: masseters function normal Cranial Nerve VII: normal facial expressions Cranial Nerve VIII: no nystagmus Cranial Nerve IX: other - ok gag Cranial Nerve XII: tongue midline Motor System: no involuntary movement, no muscle wasting, other - able to move arms , both feet Sensory: normal pinprick, other Coordination: other Deep Tendon Reflexes: 0 ankle (L), 0 ankle (R), 0 bicep (L), 0 bicep (R), 0 brachioradialis (L), 0 brachioradialis (R), 0 knee (L), 0 knee (R), 0 tricep (L) , 0 tricep (R) Reflexes: mute plantar (L), mute plantar (R) Impression/Recommendations Problems: (1) post anoxic , methabolic encephalopathy, improving (2) deconditioned Status: stable, unchanged Recommendations #[id number] cont present rx d/w staff prognosis improved MRI brain pt/ot venous duplex d/w speech re dysphagia LULU BAEZ Jun 17, 2017 14:25
[2017-06-17] MEDS ORDERED: LORazepam Inj 2mg/ml 1ml IV PRN (14:30)
[2017-06-17 16:00] VITALS: BP 146/71
--- NOTE | 2017-06-17 16:03 | Diagnostic Imaging Report ---
Indication: Altered mental status Technique: sagittal T1 fast spin echo, axial T1 FLAIR, axial T2 FLAIR, axial T2 FS PROPELLER, axial T2* GRE, axial diffusion weighted images. ADC and exponential ADC maps generated Comparison: CT dated 06/10/2017 Findings: No abnormal areas of restricted diffusion to suggest acute infarction. No acute hemorrhage or edema. No mass effect nor midline shift. There is age-related enlargement of the ventricles and extra axial CSF spaces. There is periventricular deep white matter chronic ischemic change. There are small bilateral basal ganglia lacunar infarcts versus prominent perivascular spaces. The vascular flow voids are preserved. Visualized orbits and sinuses are unremarkable. There is fairly extensive fluid within the right mastoid air cells, less extensive fluid in the left mastoid. The right mastoid abnormality is not evident on prior CT. The less extensive left mastoid abnormality is in retrospect evident. Visualized orbits and sinuses are unremarkable. Impression: Negative for acute intracranial bleed, mass effect, or infarct Chronic and age-related changes, as described Bilateral right greater than left mastoid disease. On the right, this is a new finding since prior CT scan 06/10/2017
[2017-06-17 20:00] VITALS: BP 146/59
[2017-06-17] MEDS: Dyna-Hex 2% Top Sol 8oz TOPIC SCH (20:58)
--- NOTE | 2017-06-17 23:13 | General Progress Note ---
Assessment/Plan Assessment/Plan 1. Thrombocytopenia potentially secondary to underlying sepsis. --> continue to monitor --> plt count goal is >20k 2. Anemia secondary to bleed, drainage from surgical site wound --> monitor, hgb goal above 7 --> s/p blood transfusion, consent from 3. Decreased hemoglobin and hematocrit, rule out gastrointestinal bleed. ---> OB is negative 4. Potential transfusion reaction. --> not noted in review of record 5. Respiratory Failure --> intubated, on a vent --> now extubated 6. Altered mental status. 7. Sepsis. --> see ID recs 8. Leukocytosis. 9. Rhabdomyolysis. 10. Cerebrovascular accident. 11. Acute kidney injury. 12. Status post spine surgery Subjective Constitutional: Denies: chills, diaphoresis, fever, malaise, no symptoms, other , weakness HEENT: Denies: blurred vision, double vision, ear discharge, ear pain, eye pain , mouth pain, mouth swelling, no symptoms, nose congestion, nose pain, other, tearing, throat pain, throat swelling Cardiovascular: Denies: chest pain, edema, irregular heart rate, lightheadedness, no symptoms, other, palpitations, syncope Respiratory: Denies: SOB at rest, SOB with excertion, cough, no symptoms, orthopnea, other, shortness of breath, sputum, stridor, wheezing Gastrointestinal/Abdominal: Denies: abdomen distended, abdominal pain, black stools, blood in stool, constipated, diarrhea, difficulty swallowing, nausea, no symptoms, other, poor appetite, poor fluid intake, rectal bleeding, tarry stools, vomiting Allergies: Coded Allergies: No Known Allergies (Unverified , 06/10/17) Subjective hgb better, NAD, mri pending Objective Last 24 Hour Vital Signs Date Time Temp Pulse Resp B/P Pulse Ox O2 Delivery O2 Flow Rate FiO2 06/17/17 20:29 Nasal Cannula 2.0 28 06/17/17 20:29 96 Nasal Cannula 2.0 28 06/17/17 20:00 99.0 96 24 146/59 94 Nasal Cannula 2.0 06/17/17 16:00 97.5 100 18 146/71 96 Nasal Cannula 2.0 06/17/17 15:42 92 06/17/17 12:00 97.8 85 18 155/101 96 Nasal Cannula 3.0 06/17/17 11:41 88 06/17/17 08:00 97.5 101 21 145/100 96 Nasal Cannula 3.0 06/17/17 07:33 97 06/17/17 04:00 97.9 92 19 142/69 94 Nasal Cannula 2.0 06/17/17 04:00 89 06/17/17 00:41 98.1 100 18 148/88 95 Nasal Cannula 2.0 06/17/17 00:00 89 Intake and Output 06/16/17 06/17/17 19:00 07:00 Intake Total 1108.830 ml 1320.8 ml Output Total 1375 ml 1500 ml Balance -266.170 ml -179.2 ml IV Total 1108.830 ml 1320.8 ml Output Urine Total 1375 ml 1500 ml Laboratory Tests 06/17/17 05:30: White Blood Count 12.8H, Red Blood Count 3.40L, Hemoglobin 10.5L, Hematocrit 31.0L, Mean Corpuscular Volume 91, Mean Corpuscular Hemoglobin 30.9, Mean Corpuscular Hemoglobin Concent 33.8, Red Cell Distribution Width 15.3H, Platelet Count 117L, Mean Platelet Volume 5.7L, Neutrophils (%) (Auto) 81.4H, Lymphocytes (%) (Auto) 7.3L, Monocytes (%) (Auto) 9.2, Eosinophils (%) (Auto) 0.7, Basophils (%) (Auto) 1.4, Sodium Level 131L, Potassium Level 3.5, Chloride Level 98, Carbon Dioxide Level 17L, Anion Gap 16H, Blood Urea Nitrogen 12, Creatinine 0.7, Estimat Glomerular Filtration Rate , Glucose Level 87, Calcium Level 7.4L, Total Bilirubin 0.6, Aspartate Amino Transf (AST/SGOT) 42H, Alanine Aminotransferase (ALT/SGPT) 28, Alkaline Phosphatase 79, Total Protein 4.6L, Albumin 1.9L, Globulin 2.7, Albumin/Globulin Ratio 0.7L Height (Feet): 5 Height (Inches): 8.00 Weight (Pounds): 184 General Appearance: no apparent distress EENT: normal ENT inspection Neck: supple Cardiovascular: regular rhythm Respiratory/Chest: normal breath sounds Abdomen: soft Edema: 1+ Leg (L), 1+ Leg (R) Edema: trace edema Neurologic: abnormal gait Skin: warm/dry Franco De La Rosa Jun 17, 2017 23:13
[2017-06-18] VITALS: BP 145/74
--- NOTE | 2017-06-18 03:30 | Progress Note ---
DATE: 06/17/2017 CARDIOLOGY PROGRESS NOTE SUBJECTIVE: The patient is extubated with no respiratory distress for several days. Blood pressure is stable. She continues on antimicrobials and respiratory hygiene. Monitored rhythm sinus with atrial ectopy. OBJECTIVE: VITAL SIGNS: Blood pressure 145/100, pulse 101, and respirations 21. Afebrile. LUNGS: Coarse breath sounds. Few rhonchi. No wheezing HEART: Regular rate and rhythm. Normal S1 and S2 with a fourth heart sound. ABDOMEN: Soft. EXTREMITIES: No edema. LABORATORY DATA: White count 12.8, hemoglobin 10.5. Sodium 131, potassium 3.5, bicarbonate 17, BUN 12, and creatinine 0.7. Albumin 1.9. IMPRESSION: 1. Postoperative spine surgery, resolved. 2. Rhabdomyolysis. 3. Status post respiratory failure. 4. Severe anemia, status post transfusion. 5. Sepsis with shock, recovered. 6. Hyponatremia dilutional. 7. Hypokalemia. 8. Severe protein-calorie malnutrition. 9. Mastoiditis on the right. PLAN: 1. Antimicrobials. 2. Respiratory hygiene. 3. Protein supplement. 4. Replace sodium. 5. Change IV fluids to isotonic solution. 6. Await swallow evaluation and resume diet. 7. . 8. DVT and stress ulcer prophylaxis. Praful Stewart M.D. DR: LETTY JOB#: [id number] CC:
[2017-06-18] MEDS: Morphine Sulfate 2mg/ml Inj IVP PRN ×3 (03:51→13:54)
[2017-06-18 04:00] VITALS: BP 152/79
[2017-06-18] MEDS: Piperacillin/Tazobactam 3.375 GM in D5W 110 ML IVPB SCH (05:49)
--- NOTE | 2017-06-18 07:24 | General Progress Note ---
Assessment/Plan Problem List: (1) Pneumonia ICD Codes: J18.9 - Pneumonia, unspecified organism SNOMED: 413171864 Qualifiers: Qualified Codes: J18.9 - Pneumonia, unspecified organism (2) Sepsis ICD Codes: A41.9 - Sepsis, unspecified organism SNOMED: 00359955 Qualifiers: Qualified Codes: A41.9 - Sepsis, unspecified organism (3) ZEKE (acute kidney injury) ICD Codes: N17.9 - Acute kidney failure, unspecified SNOMED: 63320019 (4) Altered level of consciousness ICD Codes: R40.4 - Transient alteration of awareness SNOMED: 2735028 (5) respiratory failure, on ventilator (6) septic shock (7) Protein-calorie malnutrition, severe ICD Codes: E43 - Unspecified severe protein-calorie malnutrition SNOMED: 188803420 Status: stable, progressing Assessment/Plan ivf monitor fluid status monitor h/h and transfuse prn abx per id dvt/stress ulcer prophylaxis retry video swallow today resp care/o2 monitor cxr stable Subjective ROS Limited/Unobtainable: Yes Constitutional: Reports: malaise, weakness HEENT: Reports: no symptoms Cardiovascular: Reports: no symptoms Respiratory: Reports: no symptoms Gastrointestinal/Abdominal: Reports: difficulty swallowing Genitourinary: Reports: no symptoms Neurologic/Psychiatric: Reports: pre-existing deficit Endocrine: Reports: no symptoms Hematologic/Lymphatic: Reports: anemia Allergies: Coded Allergies: No Known Allergies (Unverified , 06/10/17) All Systems: reviewed and negative except above Subjective no events. resting. smiles. follows simple commands. MRi negative yesterday. still waiting for video swallow. Objective Last 24 Hour Vital Signs Date Time Temp Pulse Resp B/P Pulse Ox O2 Delivery O2 Flow Rate FiO2 06/18/17 04:21 98.8 06/18/17 04:00 81 06/18/17 04:00 99.0 80 20 152/79 97 Nasal Cannula 2.0 06/18/17 00:00 98.8 76 24 145/74 96 Nasal Cannula 2.0 06/18/17 00:00 81 06/17/17 20:29 Nasal Cannula 2.0 28 06/17/17 20:29 96 Nasal Cannula 2.0 28 06/17/17 20:00 97 06/17/17 20:00 99.0 96 24 146/59 94 Nasal Cannula 2.0 06/17/17 16:00 97.5 100 18 146/71 96 Nasal Cannula 2.0 06/17/17 15:42 92 06/17/17 12:00 97.8 85 18 155/101 96 Nasal Cannula 3.0 06/17/17 11:41 88 06/17/17 08:00 97.5 101 21 145/100 96 Nasal Cannula 3.0 06/17/17 07:33 97 Intake and Output 06/17/17 06/18/17 19:00 07:00 Intake Total 993.75 ml 75 ml Output Total 1130 ml 410 ml Balance -136.25 ml -335 ml IV Total 993.75 ml 75 ml Output Urine Total 1130 ml 410 ml # Voids 2 # Bowel Movements 1 1 Height (Feet): 5 Height (Inches): 8.00 Weight (Pounds): 180 Objective General Appearance: WD/WN, alert. follows commands Neck: supple Cardiovascular: regular rhythm Respiratory/Chest: few rhonchi - bilaterally Abdomen: normal bowel sounds, non tender, soft, no organomegaly Edema: mild edema Neurologic: responsive, disoriented Skin: normal pigmentation JAMES PARKER Jun 18, 2017 07:24
[2017-06-18 08:00] VITALS: BP 151/76
--- NOTE | 2017-06-18 08:13 | Critical Care Progress Note ---
Assessment/Plan Assessment/Plan respiratory failure- extubated shock- now stable possible sepsis leukocytosis protein calorie malnutrition elevated CK possible rhabdo post spine surgery acute encephalopathy- improved ARF with oliguria, resolved PLAN dc iv fluid dc ativan respiratory care titrate oxygen to off supportive care speech ot and pt dc to snf today medications/laboratory data/nursing notes reviewed in detail note reviewed and edited care discussed with RN and RT Critical Care - Subjective Interval Events: MRI without acute change no acute stroke dc held per neuro Condition: stable EKG Rhythm: Sinus Rhythm I&O: Intake and Output 06/17/17 06/18/17 19:00 07:00 Intake Total 993.75 ml 512.5 ml Output Total 1130 ml 410 ml Balance -136.25 ml 102.5 ml IV Total 993.75 ml 512.5 ml Output Urine Total 1130 ml 410 ml # Voids 2 # Bowel Movements 1 1 Critical Care - Objective ET-Tube: 7.5 ET Position: 22 Last 24 Hour Vital Signs Date Time Temp Pulse Resp B/P Pulse Ox O2 Delivery O2 Flow Rate FiO2 06/18/17 04:21 98.8 06/18/17 04:00 81 06/18/17 04:00 99.0 80 20 152/79 97 Nasal Cannula 2.0 06/18/17 00:00 98.8 76 24 145/74 96 Nasal Cannula 2.0 06/18/17 00:00 81 06/17/17 20:29 Nasal Cannula 2.0 28 06/17/17 20:29 96 Nasal Cannula 2.0 28 06/17/17 20:00 97 06/17/17 20:00 99.0 96 24 146/59 94 Nasal Cannula 2.0 06/17/17 16:00 97.5 100 18 146/71 96 Nasal Cannula 2.0 06/17/17 15:42 92 06/17/17 12:00 97.8 85 18 155/101 96 Nasal Cannula 3.0 06/17/17 11:41 88 Labs: Labs Test 06/16/17 03:30 06/16/17 03:50 06/17/17 05:30 Phosphorus Level 2.8 mg/dL (2.5-4.8) White Blood Count 14.1 K/UL (4.8-10.8) 12.8 K/UL (4.8-10.8) Red Blood Count 3.32 M/UL (4.20-5.40) 3.40 M/UL (4.20-5.40) Hemoglobin 10.4 G/DL (12.0-16.0) 10.5 G/DL (12.0-16.0) Hematocrit 29.5 % (37.0-47.0) 31.0 % (37.0-47.0) Mean Corpuscular Volume 89 FL (80-99) 91 FL (80-99) Mean Corpuscular Hemoglobin 31.4 PG (27.0-31.0) 30.9 PG (27.0-31.0) Mean Corpuscular Hemoglobin Concent 35.3 G/DL (32.0-36.0) 33.8 G/DL (32.0-36.0) Red Cell Distribution Width 13.6 % (11.6-14.8) 15.3 % (11.6-14.8) Platelet Count 188 K/UL (150-450) 117 K/UL (150-450) Mean Platelet Volume 5.6 FL (6.5-10.1) 5.7 FL (6.5-10.1) Neutrophils (%) (Auto) 81.3 % (45.0-75.0) 81.4 % (45.0-75.0) Lymphocytes (%) (Auto) 6.7 % (20.0-45.0) 7.3 % (20.0-45.0) Monocytes (%) (Auto) 10.5 % (1.0-10.0) 9.2 % (1.0-10.0) Eosinophils (%) (Auto) 0.5 % (0.0-3.0) 0.7 % (0.0-3.0) Basophils (%) (Auto) 1.0 % (0.0-2.0) 1.4 % (0.0-2.0) Sodium Level 136 mEQ/L (135-145) 131 mEQ/L (135-145) Potassium Level 3.5 mEQ/L (3.4-4.9) 3.5 mEQ/L (3.4-4.9) Chloride Level 97 mEQ/L (98-107) 98 mEQ/L (98-107) Carbon Dioxide Level 18 mEQ/L (20-30) 17 mEQ/L (20-30) Anion Gap 21 (5-15) 16 (5-15) Blood Urea Nitrogen 12 mg/dL (7-23) 12 mg/dL (7-23) Creatinine 0.7 mg/dL (0.5-0.9) 0.7 mg/dL (0.5-0.9) Estimat Glomerular Filtration Rate mL/min (>60) mL/min (>60) Glucose Level 93 mg/dL (74-106) 87 mg/dL (74-106) Calcium Level 8.0 mg/dL (8.6-10.2) 7.4 mg/dL (8.6-10.2) Total Bilirubin 0.7 mg/dL (0.0-1.2) 0.6 mg/dL (0.0-1.2) Aspartate Amino Transf (AST/SGOT) 43 U/L (5-40) 42 U/L (5-40) Alanine Aminotransferase (ALT/SGPT) 28 U/L (3-33) 28 U/L (3-33) Alkaline Phosphatase 114 U/L (35-104) 79 U/L (35-104) Total Protein 5.1 g/dL (6.6-8.7) 4.6 g/dL (6.6-8.7) Albumin 2.3 g/dL (3.5-5.2) 1.9 g/dL (3.5-5.2) Globulin 2.8 g/dL 2.7 g/dL Albumin/Globulin Ratio 0.8 (1.0-2.7) 0.7 (1.0-2.7) Objective: WDWN NAD alert stable breath sounds bilaterally with some rhonchi S1S2 RRR without MRG noted bowel sounds, nontender no HSM no CC; trace edema nonfocal awake reviewed and edited Accucheck: MARISABEL CONTRERAS Jun 18, 2017 08:13
[2017-06-18] MEDS: Pantoprazole Inj IVP SCH (08:46)
[2017-06-18 10:41] LABS: BASOPHILS % (AUTO) 0.8 % (0.0-2.0); LYMPHOCYTES % (AUTO) 5.9 % (20.0-45.0); MEAN CORPUSCULAR HGB CONC 33.8 G/DL (32.0-36.0); MEAN CORPUSCULAR VOLUME 92 FL (80-99); MEAN PLATELET VOLUME 5.4 FL (6.5-10.1); MONOCYTES % (AUTO) 7.3 % (1.0-10.0); NEUTROPHILS % (AUTO) 84.9 % (45.0-75.0); PLATELET COUNT 322 K/UL (150-450); RED BLOOD COUNT 3.24 M/UL (4.20-5.40); WHITE BLOOD COUNT 12.4 K/UL (4.8-10.8)
[2017-06-18 11:04] LABS: ALANINE AMINOTRANSFERASE 37 U/L (3-33); ALBUMIN/GLOBULIN RATIO 0.8 (1.0-2.7); ANION GAP 10 (5-15); ASPARTATE AMINO TRANSFERASE 48 U/L (5-40); CALCIUM 7.6 mg/dL (8.6-10.2); CARBON DIOXIDE 25 mEQ/L (20-30); CHLORIDE 102 mEQ/L (98-107); CREATININE 0.7 mg/dL (0.5-0.9); HEMOLYSIS 10; POTASSIUM 2.9 mEQ/L (3.4-4.9); SODIUM 137 mEQ/L (135-145); TOTAL PROTEIN 4.7 g/dL (6.6-8.7)
--- NOTE | 2017-06-18 11:32 | Infectious Diseases Prog Note ---
Assessment/Plan Assessment/Plan antibiotics : zosyn A 1. leucocytosis improving 2. respiratory failure resolved 3. renal failure improving 4. pleural effusion 5. ? pneumonia s/p rx P 1. d/c zosyn 2. observe off antibiotics Subjective ROS Limited/Unobtainable: Yes Allergies: Coded Allergies: No Known Allergies (Unverified , 06/10/17) Objective Vital Signs Last 24 Hour Vital Signs Date Time Temp Pulse Resp B/P Pulse Ox O2 Delivery O2 Flow Rate FiO2 06/18/17 08:00 97.9 75 26 151/76 94 Nasal Cannula 2.0 06/18/17 07:53 87 06/18/17 04:21 98.8 06/18/17 04:00 81 06/18/17 04:00 99.0 80 20 152/79 97 Nasal Cannula 2.0 06/18/17 00:00 98.8 76 24 145/74 96 Nasal Cannula 2.0 06/18/17 00:00 81 06/17/17 20:29 Nasal Cannula 2.0 28 06/17/17 20:29 96 Nasal Cannula 2.0 28 06/17/17 20:00 97 06/17/17 20:00 99.0 96 24 146/59 94 Nasal Cannula 2.0 06/17/17 16:00 97.5 100 18 146/71 96 Nasal Cannula 2.0 06/17/17 15:42 92 06/17/17 12:00 97.8 85 18 155/101 96 Nasal Cannula 3.0 06/17/17 11:41 88 Height (Feet): 5 Height (Inches): 8.00 Weight (Pounds): 180 Respiratory/Chest: lungs clear Cardiovascular: normal rate, regular rhythm, no gallop/murmur Abdomen: soft, non tender Extremities: other - + edema Laboratory Tests Test 06/18/17 10:00 White Blood Count 12.4 K/UL (4.8-10.8) H Red Blood Count 3.24 M/UL (4.20-5.40) L Hemoglobin 10.0 G/DL (12.0-16.0) L Hematocrit 29.7 % (37.0-47.0) L Mean Corpuscular Volume 92 FL (80-99) Mean Corpuscular Hemoglobin 31.0 PG (27.0-31.0) Mean Corpuscular Hemoglobin Concent 33.8 G/DL (32.0-36.0) Red Cell Distribution Width 16.0 % (11.6-14.8) H Platelet Count 322 K/UL (150-450) # Mean Platelet Volume 5.4 FL (6.5-10.1) L Neutrophils (%) (Auto) 84.9 % (45.0-75.0) H Lymphocytes (%) (Auto) 5.9 % (20.0-45.0) L Monocytes (%) (Auto) 7.3 % (1.0-10.0) Eosinophils (%) (Auto) 1.0 % (0.0-3.0) Basophils (%) (Auto) 0.8 % (0.0-2.0) Sodium Level 137 mEQ/L (135-145) Potassium Level 2.9 mEQ/L (3.4-4.9) L Chloride Level 102 mEQ/L (98-107) Carbon Dioxide Level 25 mEQ/L (20-30) Anion Gap 10 (5-15) Blood Urea Nitrogen 10 mg/dL (7-23) Creatinine 0.7 mg/dL (0.5-0.9) Estimat Glomerular Filtration Rate mL/min (>60) Glucose Level 133 mg/dL (74-106) H Calcium Level 7.6 mg/dL (8.6-10.2) L Magnesium Level 1.8 mg/dL (1.7-2.5) Total Bilirubin 0.5 mg/dL (0.0-1.2) Aspartate Amino Transf (AST/SGOT) 48 U/L (5-40) H Alanine Aminotransferase (ALT/SGPT) 37 U/L (3-33) H Alkaline Phosphatase 80 U/L (35-104) Total Protein 4.7 g/dL (6.6-8.7) L Albumin 2.2 g/dL (3.5-5.2) L Globulin 2.5 g/dL Albumin/Globulin Ratio 0.8 (1.0-2.7) L EARLENE BANKS Jun 18, 2017 11:32
[2017-06-18 12:00] VITALS: BP 153/71
[2017-06-18] MEDS ORDERED: D5NS 1000ml IV ONE (15:32)
[2017-06-18] MEDS ORDERED: NS 275ml ONE (15:32)
--- NOTE | 2017-06-18 16:55 | General Progress Note ---
Assessment/Plan Assessment/Plan 1. Thrombocytopenia potentially secondary to underlying sepsis. --> continue to monitor --> plt count goal is >20k 2. Anemia secondary to bleed, drainage from surgical site wound --> monitor, hgb goal above 7 --> s/p blood transfusion, consent from 3. Decreased hemoglobin and hematocrit, rule out gastrointestinal bleed. ---> OB is negative 4. Potential transfusion reaction. --> not noted in review of record 5. Respiratory Failure --> intubated, on a vent --> now extubated 6. Altered mental status. 7. Sepsis. --> see ID recs 8. Leukocytosis. 9. Rhabdomyolysis. 10. Cerebrovascular accident. 11. Acute kidney injury. 12. Status post spine surgery Subjective Constitutional: Reports: no symptoms HEENT: Reports: no symptoms Cardiovascular: Reports: no symptoms Respiratory: Reports: no symptoms Gastrointestinal/Abdominal: Reports: no symptoms Genitourinary: Reports: no symptoms Neurologic/Psychiatric: Reports: no symptoms Endocrine: Reports: no symptoms Hematologic/Lymphatic: Reports: no symptoms Allergies: Coded Allergies: No Known Allergies (Unverified , 06/10/17) Subjective clear for dc Objective Last 24 Hour Vital Signs Date Time Temp Pulse Resp B/P Pulse Ox O2 Delivery O2 Flow Rate FiO2 06/18/17 12:00 98.9 81 20 153/71 96 Nasal Cannula 2.0 06/18/17 11:52 86 06/18/17 08:00 97.9 75 26 151/76 94 Nasal Cannula 2.0 06/18/17 07:53 87 06/18/17 04:21 98.8 06/18/17 04:00 81 06/18/17 04:00 99.0 80 20 152/79 97 Nasal Cannula 2.0 06/18/17 00:00 98.8 76 24 145/74 96 Nasal Cannula 2.0 06/18/17 00:00 81 06/17/17 20:29 Nasal Cannula 2.0 28 06/17/17 20:29 96 Nasal Cannula 2.0 28 06/17/17 20:00 97 06/17/17 20:00 99.0 96 24 146/59 94 Nasal Cannula 2.0 Intake and Output 06/17/17 06/18/17 19:00 07:00 Intake Total 993.75 ml 587.5 ml Output Total 1130 ml 410 ml Balance -136.25 ml 177.5 ml IV Total 993.75 ml 587.5 ml Output Urine Total 1130 ml 410 ml # Voids 2 # Bowel Movements 1 1 Laboratory Tests 06/18/17 10:00: White Blood Count 12.4H, Red Blood Count 3.24L, Hemoglobin 10.0L, Hematocrit 29.7L, Mean Corpuscular Volume 92, Mean Corpuscular Hemoglobin 31.0, Mean Corpuscular Hemoglobin Concent 33.8, Red Cell Distribution Width 16.0H, Platelet Count 322#, Mean Platelet Volume 5.4L, Neutrophils (%) (Auto) 84.9H, Lymphocytes (%) (Auto) 5.9L, Monocytes (%) (Auto) 7.3, Eosinophils (%) (Auto) 1.0, Basophils (%) (Auto) 0.8, Sodium Level 137, Potassium Level 2.9L, Chloride Level 102, Carbon Dioxide Level 25, Anion Gap 10, Blood Urea Nitrogen 10, Creatinine 0.7, Estimat Glomerular Filtration Rate , Glucose Level 133H, Calcium Level 7.6L, Magnesium Level 1.8, Total Bilirubin 0.5, Aspartate Amino Transf (AST/SGOT) 48H, Alanine Aminotransferase (ALT/SGPT) 37H, Alkaline Phosphatase 80, Total Protein 4.7L, Albumin 2.2L, Globulin 2.5, Albumin/ Globulin Ratio 0.8L Height (Feet): 5 Height (Inches): 8.00 Weight (Pounds): 180 General Appearance: no apparent distress EENT: normal ENT inspection Neck: non-tender Cardiovascular: normal peripheral pulses Respiratory/Chest: lungs clear Extremities: non-tender Neurologic: procurement coordinator II-XII grossly normal Franco De La Rosa Jun 18, 2017 16:55
--- NOTE | 2017-06-19 03:45 | Progress Note ---
DATE: 06/18/2017 CARDIOLOGY PROGRESS NOTE: SUBJECTIVE: The patient has stable respiratory parameters, off the ventilator for several days. Blood pressure is stable, off pressors. Diet as tolerated. MRI revealed no acute process. OBJECTIVE: VITAL SIGNS: Blood pressure is 152/79, pulse rate 80, and respiratory rate 20. LUNGS: With few rhonchi. CARDIAC: Regular rhythm and rate. Normal S1 and S2 with no murmur. ABDOMEN: Soft. EXTREMITIES: Trace edema. LABORATORY DATA: Albumin is 2.3. White count is 12.4 and hemoglobin 10. Magnesium is 1.8. BUN is 10 and creatinine 0.7. Potassium is 2.9. IMPRESSION: 1. Status post spine surgery. 2. Status post respiratory failure. 3. Status post sepsis with shock. 4. Hypokalemia. 5. Severe protein-calorie malnutrition. 6. Paroxysmal atrial fibrillation. PLAN: 1. Potassium replacement. 2. Respiratory hygiene. 3. Continue current cardiovascular regimen. 4. Speech therapy. 5. Complete antimicrobials. 6. Rehabilitation. 7. Stable for subacute facility from cardiovascular standpoint. Praful Stewart M.D. DR: John JOB#: [id number] CC:
--- NOTE | 2017-06-21 08:48 | Discharge Summary ---
Discharge Summary Hospital Course Date of Admission Jun 10, 2017 at 20:47 Date of Discharge Jun 18, 2017 at 15:33 Admitting Diagnosis Altered Mental Status HPI Tisha Hagen is a 77 year old female who was admitted on Jun 10, 2017 at 20: 47 for Altered Mental Status Hospital Course dc summary #[id number] Discharge Condition Upon Discharge: stable Discharge Disposition Patient was discharged to SNF Discharge Diagnoses: Discharge Instructions Discharge Instructions Special Instructions I have been assigned to complete a D/C Summary on this account. I was not involved in the patient management Kayley Ruffin NP ([place]) Jun 21, 2017 08:48
--- NOTE | 2017-06-22 00:01 | Discharge Summary 2 SIG ---
DATE OF ADMISSION: 06/10/2017 DATE OF DISCHARGE: 06/18/2017 REASON FOR ADMISSION: 77-year-old female, was initially referred to outside hospital for spine surgery for L1-S1 fusion. Postoperatively, she became confused and altered. She required blood transfusion. She also received normal saline, intravenous fluids. She developed worsening respiratory distress and confusion and was transferred to the emergency department for further evaluation. In the emergency department, she was hypotensive and due to the altered level of consciousness, airway protection, as well as the acute respiratory failure, required emergent intubation. Workup in the emergency room revealed leukocytosis, anemia, and thrombocytopenia. ABG after intubation revealed acute acidosis with hypercapnia. Lactic acid - 5.8. Troponin was negative. CK - 4006 with elevated CK-MB - 300. The patient was transferred to ICU for further management. ADMITTING DIAGNOSES: 1. Acute respiratory failure, requiring intubation. 2. Possible sepsis. 3. Possible aspiration pneumonia. 4. Shock. 5. Post spine surgery. 6. Altered level of consciousness. 7. Acute rhabdomyolysis. 8. Acute myocardial ischemia. HOSPITAL STAY: The patient was initially admitted to ICU. The patient was started on pressors. Hemodynamic support was provided until was able to wean from pressors. Ventilator support was provided along with aggressive fluid resuscitation. Pulmonary toilet was provided. The patient was started on broad-spectrum antibiotic. ID followed. CK was trending down. Troponin was trending down. Cardiology, ID, Neurology, and Pulmonary consult were requested. In terms of pressor, the patient was on Levophed initially along with aggressive fluid resuscitation. When blood pressure stabilized,the patient was able to be weaned from Levophed. The patient was on empiric antibiotic. ID followed. Blood culture negative. According to Infectious Disease Doctor, likely aspiration pneumonia. Chest x-ray followed. Sputum culture not collected. The patient status post treatment with antibiotics. Leukocytosis trending down. ID recommended to observe the patient off antibiotics. office support specialist closely followed. Ventilator support provided. Pulmonary toilet provided. The patient was able to be weaned on 06/13/2017 and started on supplemental oxygen, titrated to keep oxygen saturation above 92%. Prior to discharge, the patient was on two liters of oxygen via nasal cannula with stable pulse oximetry. Neurologist followed. Upon admission, CT of the head revealed no acute intracranial pathology. After extubation MRI of the brain was done, which revealed no acute intracranial pathology as well. EEG revealed severe encephalopathy, toxic metabolic. Cardiology closely followed the patient. Initially, troponin was negative, but with elevated CK-MB ; there was minimally elevated troponin on 06/11/2017 of 0.51, which trend down to 0.31 on 06/12/2017. EKG showed paroxysmal atrial fibrillation with overall sinus rhythm or mild sinus tachycardia. The patient was initially on the IV fluids and IV fluids later tapered down. Pro BNP was 642. Cardiovascular regimen was continued as per Cardiology. CK was trending down. Lead Shop Operator followed. The patient developed acute renal failure on the second day with creatinine of 1.4. Creatinine kept rising to 2.2 and then dropped prior to discharge down to 0.7. No urgent hemodialysis was needed. Renal parameters and electrolytes were closely monitored. The patient had severe electrolyte abnormalities, hypocalcemia, hypomagnesemia, hypokalemia, hypophosphatemia. Electrolytes were replaced as per media production support manager, who closely followed the patient. Renal ultrasound revealed no evidence of hydronephrosis. Intravenous fluids were changed according to electrolytes per media production support manager. Lead Shop Operator recommended renal dose of medications. Acute renal failure resolved. The patient was anemic on presentation with hemoglobin - 10 and hematocrit- 31.3. On 06/13/2017, hemoglobin - 5.9 and hematocrit- 17.6. The patient required transfusion of two units of packed red blood cells. After transfusion, hemoglobin and hematocrit were closely monitored and prior to discharge back to baseline. Hemoglobin- 10 and hematocrit- 29.7. Hematology consult was requested. According to belt turner, the patient had anemia of chronic disease with superimposed acute anemia due to bleeding/ drainage from the surgical site, which was corrected with blood transfusion. The patient noted to have severe protein-calorie malnutrition. Dietary evaluation was requested along with swallow evaluation. Swallow evaluation found that the patient had dysphagia. The patient was unwilling to participate in the swallow evaluation and speech therapist recommended one-to-one feeding with strict aspiration reflux precaution as well as video swallow evaluation as outpatient to further evaluate risk of silent aspiration. Dietary recommendation noted. Patient needs protein supplements or tube feeding with calculated goal rate of tube feeding to achieve recommended calorie intake, DVT and GI prophylaxis provided. The patient was stable for [facility] for [facility] management. DISCHARGE DIAGNOSES: 1. Acute respiratory failure, requiring intubation. 2. Status post extubation. 3. Shock. 4. Sepsis. 5. Possible aspiration pneumonia. 6. Post spine surgery, L1-S1 fusion. 7. Acute toxic metabolic encephalopathy, -improving. 8. Acute renal failure with oliguria, resolved. 9. Severe metabolic acidosis. 10. Acute rhabdomyolysis,- improving. 11. Severe protein-calorie malnutrition. 12. Electrolyte imbalances (hypokalemia, hypocalcemia, hypomagnesemia, and hypophosphatemia). 13. Acute myocardial ischemia. 14. Acute on chronic diastolic congestive heart failure. 15. Paroxysmal atrial fibrillation. 16. Anemia of chronic disease. 17. Acute anemia secondary to bleeding/drainage from surgical site, resolved. DISCHARGE MEDICATIONS: List of medication was sent to the jail facility. DISCHARGE INSTRUCTIONS: The patient was discharged to jail facility for PT and OT. Followup with medical doctor at the facility. Yifan Hampton M.D. I have been assigned to dictate discharge summary on this account and I was not involved in the patient's management. Kayley AndresNeponsit Beach HospitalAnshu N.PMarti DR: ALTON JOB#: [id number] CC: JENNIFER
== END 2017-06-18 15:33 | DRG 862 ==
LOC: EDBD 19:57 → EMR 20:14 → ICU 20:47 → EDBEDREQ 21:09 → EDBEDREQSVC 21:09 → EDBEDREQ 06-11 05:33 → 2W 06-14 18:45
PROC: 5A1945Z Respiratory Ventilation, 24-96 Consecutive Hours (ICD-10-PCS; principal; 2017-06-11)
PROC: 06HM33Z Insertion of Infusion Device into Right Femoral Vein, Percutaneous Approach (ICD-10-PCS; principal; 2017-06-11)
PROC: 0BH17EZ Insertion of Endotracheal Airway into Trachea, Via Natural or Artificial Opening (ICD-10-PCS; principal; 2017-06-11)
DX: T81.4XXA Infection following a procedure, initial encounter (principal); J95.821 Acute postprocedural respiratory failure; T81.12XA Postprocedural septic shock, initial encounter; J69.0 Pneumonitis due to inhalation of food and vomit; E43 Unspecified severe protein-calorie malnutrition; G92 Toxic encephalopathy; I50.33 Acute on chronic diastolic (congestive) heart failure; R13.10 Dysphagia, unspecified; N17.9 Acute kidney failure, unspecified; M62.82 Rhabdomyolysis; E87.1 Hypo-osmolality and hyponatremia; D69.6 Thrombocytopenia, unspecified; I48.0 Paroxysmal atrial fibrillation; E78.5 Hyperlipidemia, unspecified; D63.8 Anemia in other chronic diseases classified elsewhere; Z68.27 Body mass index [BMI] 27.0-27.9, adult; K72.90 Hepatic failure, unspecified without coma; E87.6 Hypokalemia; E83.51 Hypocalcemia; E83.39 Other disorders of phosphorus metabolism; E83.42 Hypomagnesemia
CPT/HCPCS: 31500; 36415; 36600; 70450; 70551; 71010; 76775; 80048; 80053; 80202; 81003; 82270; 82550; 82553; 82803; 83605; 83615; 83735; 83880; 84100; 84484; 85007; 85025; 85610; 85730; 86850; 86900; 86901; 86920; 87040; 87081; 93005; 93925; 93970; 94002; 94003; 94664; 94760; 95819; J0171